=== PATIENT | male | born 1965 | race Caucasian/White ===

== ENCOUNTER → 2016-03-20 | Outpatient (REF) | payer OTHER ==
[~2016-03-20] MED LIST: /ESOM40CA PO; /WARF5TA PO; ASPI81TA85 PO; CRES40TA PO; CYCL10TA3 PO; DICL13PA TD; FISH1000 PO; INVO300T PO; LUNE3TAB PO; MELA3TAB PO; META800T82 PO; SIMV40TA2 PO; TRAM37.5 PO; VITAD1000T PO; coumadin PO
[2016-03-20 17:49] LABS: BASO # 0.1 K/mm3 (0.0-0.2); BASO % 0.9 % (0.0-1.0); EOS # 0.1 K/mm3 (0.0-0.50); EOS % 2.3 % (0.0-3.0); LARGE UNSTAINED CELL # 0.2 K/mm3 (0.0-0.4); LARGE UNSTAINED CELL % 2.4 % (0.0-4.0); LYMPH # 1.6 K/mm3 (1.5-4.5); LYMPH % 25.7 % (24.0-44.0); MEAN CORPUSCULAR HEMOGLOBIN 31.5 pg (27.0-33.0); MEAN CORPUSCULAR HGB CONC 34.8 g/dl (32.0-36.5); MEAN CORPUSCULAR VOLUME 90.5 fl (80.0-96.0); MONO # 0.4 K/mm3 (0.0-0.8); MONO % 6.6 % (0.0-5.0); NEUTROPHILS # 3.8 K/mm3 (1.8-7.7); PLATELET COUNT, AUTOMATED 177 k/mm3 (150-450); RED CELL DISTRIBUTION WIDTH 12.6 % (11.5-14.5); WHITE BLOOD COUNT 6.1 K/mm3 (4.0-10.0)
[2016-03-20 18:07] LABS: ALBUMIN 4.1 GM/DL (3.2-5.2); ALBUMIN/GLOBULIN RATIO 1.58 (1.00-1.93); ALKALINE PHOSPHATASE 108 U/L (45-117); ALT/SGPT 40 U/L (12-78); ANION GAP 8 MEQ/L (8-16); AST/SGOT 19 U/L (15-37); BILIRUBIN,TOTAL 0.9 MG/DL (0.2-1.0); BLOOD UREA NITROGEN 21 MG/DL (7-18); CALCIUM LEVEL 9.1 MG/DL (8.5-10.1); CARBON DIOXIDE LEVEL 31 MEQ/L (21-32); CHLORIDE LEVEL 103 MEQ/L (98-107); CHOLESTEROL LEVEL 198 MG/DL (<200); CREATININE FOR GFR 1.04 MG/DL (0.70-1.30); GLOMERULAR FILTRATION RATE > 60.0 (>56); GLUCOSE, FASTING 125 MG/DL (70-105); POTASSIUM SERUM 4.2 MEQ/L (3.5-5.1); SODIUM LEVEL 142 MEQ/L (136-145); TOTAL PROTEIN 6.7 GM/DL (6.4-8.2); TRIGLYCERIDES LEVEL 232 MG/DL (<150)
[2016-03-20 18:11] LABS: INR 1.93
== END ==
LOC: M SFHCPLAZ 15:41
PROVIDERS: ATTEND Family Medicine
DX: N18.2 Chronic kidney disease, stage 2 (mild) (principal); E11.9 Type 2 diabetes mellitus without complications; E78.2 Mixed hyperlipidemia; I82.409 Acute embolism and thrombosis of unspecified deep veins of unspecified lower extremity; M47.816 Spondylosis without myelopathy or radiculopathy, lumbar region

== ENCOUNTER → 2016-08-06 | Outpatient (REF) | payer OTHER ==
[~2016-08-06] MED LIST changes: +AUGM875T28 PO; +COUM6TAB PO; +LUNE3TAB36 PO; +NEXI40CA PO; +ZETI10TA30 PO
[2016-08-06 12:50] LABS: ALBUMIN 3.9 GM/DL (3.2-5.2); ALBUMIN/GLOBULIN RATIO 1.39 (1.00-1.93); ALKALINE PHOSPHATASE 90 U/L (45-117); ALT/SGPT 35 U/L (12-78); ANION GAP 8 MEQ/L (8-16); AST/SGOT 21 U/L (15-37); BILIRUBIN,TOTAL 0.8 MG/DL (0.2-1.0); BLOOD UREA NITROGEN 24 MG/DL (7-18); CALCIUM LEVEL 8.5 MG/DL (8.5-10.1); CARBON DIOXIDE LEVEL 27 MEQ/L (21-32); CHLORIDE LEVEL 105 MEQ/L (98-107); CHOLESTEROL LEVEL 165 MG/DL (<200); CREATININE FOR GFR 1.05 MG/DL (0.70-1.30); GLOMERULAR FILTRATION RATE > 60.0 (>56); GLUCOSE, FASTING 298 MG/DL (70-105); POTASSIUM SERUM 3.9 MEQ/L (3.5-5.1); SODIUM LEVEL 140 MEQ/L (136-145); TOTAL PROTEIN 6.7 GM/DL (6.4-8.2); TRIGLYCERIDES LEVEL 509 MG/DL (<150)
[2016-08-06 16:36] LABS: INR 2.45
== END ==
LOC: M SFHCPLAZ 08:17
PROVIDERS: ATTEND Family Medicine
DX: E78.2 Mixed hyperlipidemia (principal); E11.9 Type 2 diabetes mellitus without complications; E55.9 Vitamin D deficiency, unspecified

== ENCOUNTER → 2016-10-29 | Outpatient (CLI) | payer OTHER ==
[2016-10-29 19:50] LABS: INR 1.24
--- NOTE | 2016-10-29 19:53 | REP ---
Chest x-ray: Two views. History: Shortness of breath. Comparison chest x-ray November 13, 2009. Findings: Patient is status post ventral discectomy and cervical plate fusion in the lower cervical spine. Lungs are well inflated and clear. Pleural angles are sharp. Heart is not enlarged. Pulmonary vasculature is not increased. There are mild degenerative changes in the thoracic spine. Impression: No active disease. Signed by Huber Chawla MD 10/30/2016 08:10 A
[2016-10-29 20:08] LABS: ALBUMIN 4.2 GM/DL (3.2-5.2); ALBUMIN/GLOBULIN RATIO 1.45 (1.00-1.93); ALKALINE PHOSPHATASE 100 U/L (45-117); ALT/SGPT 41 U/L (12-78); ANION GAP 6 MEQ/L (8-16); AST/SGOT 20 U/L (15-37); BILIRUBIN,TOTAL 0.8 MG/DL (0.2-1.0); BLOOD UREA NITROGEN 26 MG/DL (7-18); CALCIUM LEVEL 9.3 MG/DL (8.5-10.1); CARBON DIOXIDE LEVEL 30 MEQ/L (21-32); CHLORIDE LEVEL 105 MEQ/L (98-107); CREATININE FOR GFR 1.01 MG/DL (0.70-1.30); GLOMERULAR FILTRATION RATE > 60.0 (>56); GLUCOSE, FASTING 85 MG/DL (70-105); POTASSIUM SERUM 4.4 MEQ/L (3.5-5.1); SODIUM LEVEL 141 MEQ/L (136-145); TOTAL PROTEIN 7.1 GM/DL (6.4-8.2)
[2016-10-29 20:57] LABS: BASO % 0.7 % (0.0-1.0); EOS # 0.2 K/mm3 (0.0-0.50); EOS % 2.9 % (0.0-3.0); LARGE UNSTAINED CELL # 0.1 K/mm3 (0.0-0.4); LARGE UNSTAINED CELL % 1.7 % (0.0-4.0); LYMPH # 1.6 K/mm3 (1.5-4.5); LYMPH % 20.3 % (24.0-44.0); MEAN CORPUSCULAR HEMOGLOBIN 32.7 pg (27.0-33.0); MEAN CORPUSCULAR VOLUME 90.9 fl (80.0-96.0); MONO # 0.4 K/mm3 (0.0-0.8); MONO % 5.7 % (0.0-5.0); NEUTROPHILS # 5.3 K/mm3 (1.8-7.7); NEUTROPHILS % 68.9 % (36.0-66.0); PLATELET COUNT, AUTOMATED 223 k/mm3 (150-450); RED CELL DISTRIBUTION WIDTH 12.5 % (11.5-14.5); WHITE BLOOD COUNT 7.6 K/mm3 (4.0-10.0)
== END ==
LOC: M WUC 17:17
PROVIDERS: ATTEND Physician Assistant
DX: R06.02 Shortness of breath (principal)

== ENCOUNTER → 2016-12-21 | Outpatient (REF) | payer OTHER ==
[2016-12-21 12:50] LABS: VITAMIN B12 LEVEL 818 PG/ML (247-911)
[2016-12-21 13:05] LABS: BASO # 0.1 10^3/uL (0.0-0.2); BASO % 0.8 % (0.0-1.0); EOS # 0.2 10^3/uL (0.0-0.50); EOS % 3.7 % (0.0-3.0); IMMATURE GRANULOCYTE % 0.3 % (0-0); LYMPH # 1.2 10^3/uL (1.5-4.5); LYMPH % 18.9 % (24.0-44.0); MEAN CORPUSCULAR HEMOGLOBIN 31.4 pg (27.0-33.0); MEAN CORPUSCULAR HGB CONC 34.6 g/dl (32.0-36.5); MEAN CORPUSCULAR VOLUME 90.8 fl (80.0-96.0); MONO # 0.6 10^3/uL (0.0-0.8); MONO % 8.7 % (0.0-5.0); NEUTROPHILS # 4.4 10^3/uL (1.8-7.7); NEUTROPHILS % 67.6 % (36.0-66.0); PLATELET COUNT, AUTOMATED 172 10^3/uL (150-450); RED CELL DISTRIBUTION WIDTH 12.9 % (11.5-14.5); WHITE BLOOD COUNT 6.5 10^3/uL (4.0-10.0)
[2016-12-21 13:10] LABS: INR 3.14
[2016-12-21 13:22] LABS: ALBUMIN 4.3 GM/DL (3.2-5.2); ALBUMIN/GLOBULIN RATIO 1.87 (1.00-1.93); ALKALINE PHOSPHATASE 94 U/L (45-117); ALT/SGPT 62 U/L (12-78); ANION GAP 8 MEQ/L (8-16); AST/SGOT 25 U/L (7-37); BILIRUBIN,TOTAL 0.8 MG/DL (0.2-1.0); BLOOD UREA NITROGEN 21 MG/DL (7-18); CALCIUM LEVEL 9.4 MG/DL (8.5-10.1); CARBON DIOXIDE LEVEL 30 MEQ/L (21-32); CHLORIDE LEVEL 104 MEQ/L (98-107); CHOLESTEROL LEVEL 182 MG/DL (<200); CREATININE FOR GFR 0.95 MG/DL (0.70-1.30); GLOMERULAR FILTRATION RATE > 60.0 (>56); GLUCOSE, FASTING 140 MG/DL (70-105); POTASSIUM SERUM 4.5 MEQ/L (3.5-5.1); SODIUM LEVEL 142 MEQ/L (136-145); TOTAL PROTEIN 6.6 GM/DL (6.4-8.2); TRIGLYCERIDES LEVEL 182 MG/DL (<150)
== END ==
LOC: M SFHCPLAZ 08:35
PROVIDERS: ATTEND Family Medicine
DX: N18.2 Chronic kidney disease, stage 2 (mild) (principal); E78.2 Mixed hyperlipidemia; E11.9 Type 2 diabetes mellitus without complications; I82.409 Acute embolism and thrombosis of unspecified deep veins of unspecified lower extremity

== ENCOUNTER → 2017-04-13 | Outpatient (REF) | payer OTHER ==
[2017-04-13 11:10] LABS: BASO # 0.1 10^3/uL (0.0-0.2); BASO % 1.2 % (0.0-1.0); EOS # 0.2 10^3/uL (0.0-0.50); HEMATOCRIT 46.5 % (42.0-52.0); HEMOGLOBIN 16.2 g/dl (14.0-18.0); IMMATURE GRANULOCYTE % 0.7 % (0-3.0); LYMPH # 1.4 10^3/uL (1.5-4.5); LYMPH % 23.8 % (24.0-44.0); MEAN CORPUSCULAR HGB CONC 34.8 g/dl (32.0-36.5); MEAN CORPUSCULAR VOLUME 89.1 fl (80.0-96.0); MONO # 0.6 10^3/uL (0.0-0.8); MONO % 10.6 % (0.0-5.0); NEUTROPHILS # 3.6 10^3/uL (1.8-7.7); NEUTROPHILS % 59.7 % (36.0-66.0); PLATELET COUNT, AUTOMATED 173 10^3/uL (150-450); RED BLOOD COUNT 5.22 10^6/uL (4.30-6.10); RED CELL DISTRIBUTION WIDTH 13.1 % (11.5-14.5); WHITE BLOOD COUNT 6.1 10^3/uL (4.0-10.0)
[2017-04-13 11:15] LABS: ALKALINE PHOSPHATASE 92 U/L (45-117); ALT/SGPT 49 U/L (12-78); ANION GAP 8 MEQ/L (8-16); AST/SGOT 24 U/L (7-37); BILIRUBIN,TOTAL 1.2 MG/DL (0.2-1.0); BLOOD UREA NITROGEN 22 MG/DL (7-18); CALCIUM LEVEL 8.4 MG/DL (8.5-10.1); CARBON DIOXIDE LEVEL 30 MEQ/L (21-32); CHLORIDE LEVEL 105 MEQ/L (98-107); CREATININE FOR GFR 0.96 MG/DL (0.70-1.30); FERRITIN 202 NG/ML (26-388); GLOMERULAR FILTRATION RATE > 60.0 (>56); GLUCOSE, FASTING 186 MG/DL (70-100); IRON (FE) 101 UG/DL (65-175); POTASSIUM SERUM 4.4 MEQ/L (3.5-5.1); SODIUM LEVEL 143 MEQ/L (136-145); TOTAL IRON BINDING CAPACITY 297 UG/DL (250-450); TOTAL PROTEIN 6.5 GM/DL (6.4-8.2)
[2017-04-13 11:30] LABS: ESTIMATED AVERAGE GLUCOSE 183 MG/DL (60-110)
[2017-04-13 11:31] LABS: INR 2.93; PROTHROMBIN TIME 31.9 SECONDS (12.4-14.5)
[2017-04-13 11:32] LABS: PARTIAL THROMBOPLASTIN TIME 50.6 SECONDS (26.8-37.9)
[2017-04-13 11:51] LABS: PTH INTACT 78.1 PG/ML (18.5-88.0); TOTAL 25(OH) VITAMIN D 24.2 NG/ML (30.0-100.0)
== END ==
LOC: M SFHCPLAZ 08:19
DX: Z86.711 Personal history of pulmonary embolism (principal); E55.9 Vitamin D deficiency, unspecified; E11.9 Type 2 diabetes mellitus without complications
CPT/HCPCS: 83550

== ENCOUNTER 2017-06-24 08:49 | Day surgery (SDC) | payer OTHER ==
[2017-06-24] MEDS: NS 1,000 ML IV (09:15)
[2017-06-24] MEDS ORDERED: PROPOFOL 200 MG/20 ML VIAL As Ordered ×2 (09:43)
[2017-06-24] MEDS ORDERED: LIDOCAINE 2% INJ 100 MG/5 ML SDV (FOR ANES.) As Ordered (09:43)
== END 2017-06-24 11:00 | disposition home or self-care (01) ==
LOC: M OPP 08:49
DX: Z12.11 Encounter for screening for malignant neoplasm of colon (principal); K57.30 Diverticulosis of large intestine without perforation or abscess without bleeding; K64.8 Other hemorrhoids; E78.5 Hyperlipidemia, unspecified; Z86.718 Personal history of other venous thrombosis and embolism; Z86.711 Personal history of pulmonary embolism; D68.51 Activated protein C resistance; E11.9 Type 2 diabetes mellitus without complications; K21.9 Gastro-esophageal reflux disease without esophagitis; E80.4 Gilbert syndrome; M19.90 Unspecified osteoarthritis, unspecified site; R06.83 Snoring; G47.30 Sleep apnea, unspecified; G47.00 Insomnia, unspecified; Z98.1 Arthrodesis status; Z88.5 Allergy status to narcotic agent; Z79.01 Long term (current) use of anticoagulants; Z79.899 Other long term (current) drug therapy; Z80.42 Family history of malignant neoplasm of prostate; Z80.6 Family history of leukemia; Z80.0 Family history of malignant neoplasm of digestive organs
CPT/HCPCS: 45378

== ENCOUNTER → 2017-11-15 | Outpatient (REF) | payer OTHER ==
[2017-11-15 11:22] LABS: APPEARANCE, URINE CLEAR (CLEAR); BACTERIA, URINE AUTO NEGATIVE (NEGATIVE); BILIRUBIN, URINE AUTO NEGATIVE (NEGATIVE); BLOOD, URINE BLOOD NEGATIVE (NEGATIVE); COLOR, URINE YELLOW (YELLOW); GLUCOSE, URINE (UA) AUTO 3+ mg/dL (NEGATIVE); KETONE, URINE AUTO NEGATIVE (NEGATIVE); LEUKOCYTE ESTERASE, URINE AUTO NEGATIVE (NEGATIVE); NITRITE, URINE AUTO NEGATIVE (NEGATIVE); PROTEIN, URINE AUTO NEGATIVE (NEGATIVE); RBC, URINE AUTO 0 /HPF (0-3); SPECIFIC GRAVITY URINE AUTO 1.028 (1.002-1.035); SQUAMOUS EPITHELIAL CELL UR AU 0 /HPF (0-6); UROBILINOGEN, URINE AUTO 0.2 mg/dL (0.0-2.0); WBC, URINE AUTO 0 /HPF (0-3)
[2017-11-15 11:28] LABS: INR 3.08; PROTHROMBIN TIME 32.5 SECONDS (12.1-14.4)
[2017-11-15 11:29] LABS: PARTIAL THROMBOPLASTIN TIME 49.9 SECONDS (25.4-37.6)
[2017-11-15 11:53] LABS: CREATININE, URINE 59.2 MG/DL; MALB URINE SIEMENS 45.3 MG/L
[2017-11-15 12:10] LABS: C REACTIVE PROTEIN QUANTITATIV 0.98 MG/DL (0.00-0.30); CHOLESTEROL LEVEL 167 MG/DL (<200); CHOLESTEROL RISK RATIO 4.282 (<5); CPK CREATINE PHOSPHOKINASE 96 U/L (39-308); HDL CHOLESTEROL 39 MG/DL (>40); LDL CHOLESTEROL 87 MG/DL (<100); MAU/CREAT RATIO 76.5 MCG/MG (0.0-30.0); NON-HDL-C 128 MG/DL; TRIGLYCERIDES LEVEL 203 MG/DL (<150)
[2017-11-15 12:15] LABS: TOTAL 25(OH) VITAMIN D 63.7 NG/ML (30.0-100.0)
[2017-11-15 12:29] LABS: ESTIMATED AVERAGE GLUCOSE 189 MG/DL (60-110); HEMOGLOBIN A1c 8.2 %
== END ==
LOC: M SFHCPLAZ 09:45
DX: E11.8 Type 2 diabetes mellitus with unspecified complications (principal); I82.409 Acute embolism and thrombosis of unspecified deep veins of unspecified lower extremity; E55.9 Vitamin D deficiency, unspecified

== ENCOUNTER → 2018-03-17 | Outpatient (REF) | payer OTHER ==
[2018-03-17 17:20] LABS: INR 2.43; PROTHROMBIN TIME 26.9 SECONDS (12.1-14.4)
== END ==
LOC: M SFHCPLAZ 15:13
PROVIDERS: ATTEND Family Medicine
DX: Z86.711 Personal history of pulmonary embolism (principal)

== ENCOUNTER → 2018-04-01 | Outpatient (REF) | payer OTHER ==
[2018-04-01 13:42] LABS: BASO # 0.1 10^3/uL (0.0-0.2); BASO % 0.8 % (0.0-1.0); EOS # 0.2 10^3/uL (0.0-0.50); EOS % 4.1 % (0.0-3.0); HEMATOCRIT 51.3 % (42.0-52.0); HEMOGLOBIN 17.5 g/dl (13.5-17.5); LYMPH % 16.2 % (24.0-44.0); MEAN CORPUSCULAR HGB CONC 34.1 g/dl (32.0-36.5); MEAN CORPUSCULAR VOLUME 90.8 fl (80.0-96.0); MONO # 0.5 10^3/uL (0.0-0.8); MONO % 8.4 % (0.0-5.0); NEUTROPHILS # 4.2 10^3/uL (1.8-7.7); NEUTROPHILS % 70.2 % (36.0-66.0); PLATELET COUNT, AUTOMATED 174 10^3/uL (150-450); RED BLOOD COUNT 5.65 10^6/uL (4.30-6.10); WHITE BLOOD COUNT 5.9 10^3/uL (4.0-10.0)
[2018-04-01 13:55] LABS: ALBUMIN 3.9 GM/DL (3.2-5.2); ALT/SGPT 32 U/L (12-78); BILIRUBIN,TOTAL 0.9 MG/DL (0.2-1.0); BLOOD UREA NITROGEN 16 MG/DL (7-18); CALCIUM LEVEL 8.1 MG/DL (8.5-10.1); CARBON DIOXIDE LEVEL 28 MEQ/L (21-32); CHLORIDE LEVEL 104 MEQ/L (98-107); CREATININE FOR GFR 0.95 MG/DL (0.70-1.30); FREE T4 0.88 NG/DL (0.76-1.46); GLOMERULAR FILTRATION RATE > 60.0 (>56); GLUCOSE, FASTING 148 MG/DL (70-100); POTASSIUM SERUM 4.6 MEQ/L (3.5-5.1); SODIUM LEVEL 138 MEQ/L (136-145); THYROID STIMULATING HORMONE 0.719 uIU/ML (0.358-3.740); TOTAL PROTEIN 6.5 GM/DL (6.4-8.2)
[2018-04-01 13:58] LABS: INR 2.66; PROTHROMBIN TIME 28.9 SECONDS (12.1-14.4)
[2018-04-01 13:59] LABS: PARTIAL THROMBOPLASTIN TIME 47.6 SECONDS (25.4-37.6)
[2018-04-01 14:23] LABS: HEMOGLOBIN A1c 8.3 %
[2018-04-01 16:07] LABS: VITAMIN B12 LEVEL 660 PG/ML (247-911)
== END ==
LOC: M LABDRAW1 12:20
PROVIDERS: ATTEND Family Medicine
DX: N18.2 Chronic kidney disease, stage 2 (mild) (principal); E78.2 Mixed hyperlipidemia; E11.8 Type 2 diabetes mellitus with unspecified complications; I82.409 Acute embolism and thrombosis of unspecified deep veins of unspecified lower extremity; Z79.01 Long term (current) use of anticoagulants
CPT/HCPCS: 36415; 80053; 82607; 83036; 84439; 84443; 85025; 85046; 85610; 85730; G0103

== ENCOUNTER 2018-05-12 05:17 | Emergency (ER) | payer OTHER ==
[~2018-05-12] VITALS: Ht 170.2 cm; Wt 102.3 kg
[~2018-05-12 05:17] MED LIST changes: -/ESOM40CA PO; -/WARF5TA PO; +COUM1TAB17 PO; +NEXI1CAP3 PO
[2018-05-12] MEDS ORDERED: CRES40TA PO (05:34)
[2018-05-12] MEDS ORDERED: TIZA2CAP6 PO (05:34)
[2018-05-12] MEDS ORDERED: INVO300T PO (05:34)
[2018-05-12] MEDS ORDERED: DOXY100C PO (05:34)
[2018-05-12] MEDS ORDERED: DULAGLUTIDE (05:34)
[2018-05-12] MEDS ORDERED: ZETI10TA30 PO (05:34)
[2018-05-12] MEDS ORDERED: VITA50005 PO (05:34)
[2018-05-12] MEDS ORDERED: METF750T PO (05:34)
[2018-05-12] MEDS ORDERED: ESZO1TAB6 PO (05:34)
[2018-05-12] MEDS ORDERED: NEXI40CA PO (05:34)
[2018-05-12] MEDS ORDERED: SILD100T PO (05:34)
[2018-05-12] MEDS ORDERED: COUM6TAB PO (05:34)
[2018-05-12] MEDS ORDERED: PROAAER10 INH (05:34)
[2018-05-12] MEDS ORDERED: ISOVUE-370 76% 100ML VIAL (Q9967) As Ordered ONE (06:02)
[2018-05-12 06:21] LABS: BASO % 0.6 % (0.0-1.0); EOS # 0.3 10^3/uL (0.0-0.50); EOS % 5.5 % (0.0-3.0); HEMATOCRIT 47.7 % (42.0-52.0); HEMOGLOBIN 16.3 g/dl (13.5-17.5); LYMPH # 0.6 10^3/uL (1.5-4.5); LYMPH % 11.8 % (24.0-44.0); MEAN CORPUSCULAR HEMOGLOBIN 30.9 pg (27.0-33.0); MEAN CORPUSCULAR HGB CONC 34.2 g/dl (32.0-36.5); MEAN CORPUSCULAR VOLUME 90.5 fl (80.0-96.0); MONO # 0.6 10^3/uL (0.0-0.8); MONO % 11.2 % (0.0-5.0); NEUTROPHILS # 3.6 10^3/uL (1.8-7.7); NEUTROPHILS % 70.5 % (36.0-66.0); PLATELET COUNT, AUTOMATED 125 10^3/uL (150-450); RED BLOOD COUNT 5.27 10^6/uL (4.30-6.10); WHITE BLOOD COUNT 5.1 10^3/uL (4.0-10.0)
[2018-05-12 06:39] LABS: INR 2.6; PROTHROMBIN TIME 28.4 SECONDS (12.1-14.4)
[2018-05-12 06:40] LABS: PARTIAL THROMBOPLASTIN TIME 50.7 SECONDS (25.4-37.6)
[2018-05-12 06:46] LABS: BLOOD UREA NITROGEN 21 MG/DL (7-18); CARBON DIOXIDE LEVEL 25 MEQ/L (21-32); CHLORIDE LEVEL 106 MEQ/L (98-107); CREATININE FOR GFR 1.05 MG/DL (0.70-1.30); GLOMERULAR FILTRATION RATE > 60.0 (>56); GLUCOSE, FASTING 227 MG/DL (70-100); POTASSIUM SERUM 4.1 MEQ/L (3.5-5.1); SODIUM LEVEL 139 MEQ/L (136-145)
--- NOTE | 2018-05-12 08:57 | REP ---
CT pulmonary angiogram: With IV contrast. History: Chest pain. Shortness of breath. History of pulmonary embolus. Comparison studies: Comparison study August 12, 2012. Contrast dose: 75 ML of Isovue [address] technique: Helical scanning is acquired and overlapping 1.5 mm and contiguous 3 mm axial images are reformatted. In addition, maximum intensity projection and multiplanar re-formation images are generated in sagittal and coronal imaging projections. CT pulmonary angiographic findings: There is good opacification in the thoracic aorta and pulmonary arterial tree. There is no CT evidence of pulmonary embolism. No pleural or pericardial effusion is seen. There is a patchy area of peribronchovascular consolidation in the right upper lobe and right lower lobe consistent with pneumonia. This is a change from the 2013 study. No pulmonary mass lesion is appreciated. No adrenal lesion is observed. Visualized upper abdominal structures are otherwise unremarkable. There is no evidence of aortic aneurysm or dissection. Bone window settings show no bony destructive lesion. Impression: No CT evidence of pulmonary embolus. Right upper lobe and right lower lobe infiltrates consistent with pneumonia. Otherwise no acute disease. Electronically Signed by Huber Chawla MD 05/12/2018 08:48 A
[2018-05-12] MEDS ORDERED: AZITHROMYCIN INJ 500 MG, VIAL MATE ADAPTER 1 EACH in D5W 250 ML IV ONE (09:15)
[2018-05-12] MEDS ORDERED: cefTRIAXone SOD 2 GM in D5W MINI-BAG PLUS 50 ML IV ONE (09:15)
--- NOTE | 2018-05-12 09:24 | ECGEPIP ---
Stationary ECG Study 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
[2018-05-12 11:15] VITALS: BP 127/83
== END 2018-05-12 11:25 | disposition home or self-care (01) ==
LOC: M ED 05:17
DX: J12.3 Human metapneumovirus pneumonia (principal); E11.9 Type 2 diabetes mellitus without complications; E78.5 Hyperlipidemia, unspecified; D68.59 Other primary thrombophilia; L42 Pityriasis rosea; Z79.899 Other long term (current) drug therapy; Z79.84 Long term (current) use of oral hypoglycemic drugs; Z79.01 Long term (current) use of anticoagulants; Z88.5 Allergy status to narcotic agent; Z88.8 Allergy status to other drugs, medicaments and biological substances
CPT/HCPCS: 36415; 71275; 80048; 83605; 85025; 85610; 85730; 87040; 87486; 87581; 87633; 87798; 93005; 93041; 94760; 96365; 96367; 99285; J0456; J0696; Q9967

== ENCOUNTER → 2018-07-15 | Outpatient (REF) | payer OTHER ==
[~2018-07-15] MED LIST changes: +DOXY100C PO; +DULAGLUTIDE; +ESZO1TAB6 PO; +METF750T PO; +PROAAER10 INH; +SILD100T PO; +TIZA2CAP6 PO; +VITA50005 PO
[2018-07-15 11:30] LABS: APPEARANCE, URINE CLEAR (CLEAR); BACTERIA, URINE AUTO NEGATIVE (NEGATIVE); BILIRUBIN, URINE AUTO NEGATIVE (NEGATIVE); BLOOD, URINE BLOOD NEGATIVE (NEGATIVE); COLOR, URINE YELLOW (YELLOW); GLUCOSE, URINE (UA) AUTO 3+ mg/dL (NEGATIVE); KETONE, URINE AUTO NEGATIVE (NEGATIVE); LEUKOCYTE ESTERASE, URINE AUTO NEGATIVE (NEGATIVE); MUCUS, URINE SMALL (NEGATIVE); NITRITE, URINE AUTO NEGATIVE (NEGATIVE); PROTEIN, URINE AUTO NEGATIVE (NEGATIVE); RBC, URINE AUTO 1 /HPF (0-3); SPECIFIC GRAVITY URINE AUTO 1.031 (1.002-1.035); SQUAMOUS EPITHELIAL CELL UR AU 0 /HPF (0-6); UROBILINOGEN, URINE AUTO 0.2 mg/dL (0.0-2.0); WBC, URINE AUTO 0 /HPF (0-3)
[2018-07-15 11:31] LABS: BASO % 0.7 % (0.0-1.0); EOS # 0.2 10^3/uL (0.0-0.50); EOS % 2.8 % (0.0-3.0); HEMATOCRIT 49.7 % (42.0-52.0); HEMOGLOBIN 17.3 g/dl (13.5-17.5); LYMPH # 1.1 10^3/uL (1.5-4.5); LYMPH % 17.5 % (24.0-44.0); MEAN CORPUSCULAR HEMOGLOBIN 31.3 pg (27.0-33.0); MEAN CORPUSCULAR HGB CONC 34.8 g/dl (32.0-36.5); MEAN CORPUSCULAR VOLUME 89.9 fl (80.0-96.0); MONO # 0.5 10^3/uL (0.0-0.8); MONO % 8.5 % (0.0-5.0); NEUTROPHILS # 4.2 10^3/uL (1.8-7.7); NEUTROPHILS % 70.2 % (36.0-66.0); PLATELET COUNT, AUTOMATED 173 10^3/uL (150-450); RED BLOOD COUNT 5.53 10^6/uL (4.30-6.10)
[2018-07-15 11:45] LABS: INR 2.55
[2018-07-15 11:46] LABS: PARTIAL THROMBOPLASTIN TIME 41.2 SECONDS (25.4-37.6)
[2018-07-15 11:56] LABS: HEMOGLOBIN A1c 7.3 %
[2018-07-15 12:06] LABS: ALBUMIN 4.1 GM/DL (3.2-5.2); ALT/SGPT 35 U/L (12-78); BILIRUBIN,TOTAL 0.9 MG/DL (0.2-1.0); BLOOD UREA NITROGEN 26 MG/DL (7-18); CALCIUM LEVEL 8.6 MG/DL (8.5-10.1); CARBON DIOXIDE LEVEL 27 MEQ/L (21-32); CHLORIDE LEVEL 108 MEQ/L (98-107); CHOLESTEROL LEVEL 136 MG/DL (<200); CHOLESTEROL RISK RATIO 3.162 (<5); CREATININE FOR GFR 1.05 MG/DL (0.70-1.30); GLOMERULAR FILTRATION RATE > 60.0 (>56); GLUCOSE, FASTING 134 MG/DL (70-100); HDL CHOLESTEROL 43 MG/DL (>40); LDL CHOLESTEROL 68 MG/DL (<100); NON-HDL-C 93 MG/DL; POTASSIUM SERUM 4.4 MEQ/L (3.5-5.1); SODIUM LEVEL 142 MEQ/L (136-145); TOTAL PROTEIN 6.6 GM/DL (6.4-8.2); TRIGLYCERIDES LEVEL 126 MG/DL (<150)
[2018-07-15 12:36] LABS: MALB URINE SIEMENS 54.8 MG/L; MAU/CREAT RATIO 65.2 MCG/MG (0.0-30.0)
== END ==
LOC: M SFHCPLAZ 09:38
PROVIDERS: ATTEND Family Medicine
DX: N18.2 Chronic kidney disease, stage 2 (mild) (principal); E11.8 Type 2 diabetes mellitus with unspecified complications; E78.2 Mixed hyperlipidemia; Z12.5 Encounter for screening for malignant neoplasm of prostate; I82.409 Acute embolism and thrombosis of unspecified deep veins of unspecified lower extremity
CPT/HCPCS: 36415; 80053; 80061; 81001; 82043; 82668; 83036; 85025; 85610; 85730; G0103

== ENCOUNTER → 2018-12-19 | Outpatient (REF) | payer OTHER ==
[~2018-12-19] MED LIST changes: -METF750T PO; +METF750T36 PO; +ZETI10TA16 PO; -ZETI10TA30 PO
[2018-12-19 12:27] LABS: BASO % 0.8 % (0.0-1.0); EOS # 0.2 10^3/uL (0.0-0.5); EOS % 4.2 % (0.0-3.0); HEMATOCRIT 47.8 % (42.0-52.0); HEMOGLOBIN 16.2 g/dl (13.5-17.5); LYMPH % 19.3 % (24.0-44.0); MEAN CORPUSCULAR HEMOGLOBIN 31.9 pg (27.0-33.0); MEAN CORPUSCULAR HGB CONC 33.9 g/dl (32.0-36.5); MEAN CORPUSCULAR VOLUME 94.1 fl (80.0-96.0); MONO # 0.6 10^3/uL (0.0-0.8); MONO % 10.9 % (0.0-5.0); NEUTROPHILS # 3.4 10^3/uL (1.5-8.5); NEUTROPHILS % 64.4 % (36.0-66.0); PLATELET COUNT, AUTOMATED 162 10^3/uL (150-450); RED BLOOD COUNT 5.08 10^6/uL (4.30-6.10); WHITE BLOOD COUNT 5.2 10^3/uL (4.0-10.0)
[2018-12-19 12:34] LABS: ALBUMIN 3.6 GM/DL (3.2-5.2); ALT/SGPT 46 U/L (12-78); BILIRUBIN,TOTAL 0.6 MG/DL (0.2-1.0); BLOOD UREA NITROGEN 30 MG/DL (7-18); CALCIUM LEVEL 8.3 MG/DL (8.5-10.1); CARBON DIOXIDE LEVEL 29 MEQ/L (21-32); CHLORIDE LEVEL 108 MEQ/L (98-107); CREATININE FOR GFR 1.16 MG/DL (0.70-1.30); GLOMERULAR FILTRATION RATE > 60.0 (>56); GLUCOSE, FASTING 216 MG/DL (70-100); POTASSIUM SERUM 4.8 MEQ/L (3.5-5.1); SODIUM LEVEL 142 MEQ/L (136-145); TOTAL PROTEIN 6.1 GM/DL (6.4-8.2)
[2018-12-19 12:40] LABS: INR 2.1; PROTHROMBIN TIME 23.4 SECONDS (11.8-14.0); PTH INTACT 59.3 PG/ML (18.5-88.0); TOTAL 25(OH) VITAMIN D 70.3 NG/ML (30.0-100.0)
[2018-12-19 12:41] LABS: PARTIAL THROMBOPLASTIN TIME 36.2 SECONDS (25.0-38.4)
[2018-12-19 13:14] LABS: HEMOGLOBIN A1c 7.5 %
== END ==
LOC: M SFHCPLAZ 08:58
PROVIDERS: ATTEND Family Medicine
DX: N18.2 Chronic kidney disease, stage 2 (mild) (principal); Z79.01 Long term (current) use of anticoagulants; E11.8 Type 2 diabetes mellitus with unspecified complications; E55.9 Vitamin D deficiency, unspecified

== ENCOUNTER → 2019-05-02 | Outpatient (REF) | payer OTHER ==
[~2019-05-02] MED LIST changes: +SIMV40TA20 PO
[2019-05-02 14:19] LABS: APPEARANCE, URINE CLEAR (CLEAR); BACTERIA, URINE AUTO NEGATIVE (NEGATIVE); BILIRUBIN, URINE AUTO NEGATIVE (NEGATIVE); BLOOD, URINE BLOOD NEGATIVE (NEGATIVE); COLOR, URINE STRAW (YELLOW); GLUCOSE, URINE (UA) AUTO 3+ mg/dL (NEGATIVE); KETONE, URINE AUTO NEGATIVE (NEGATIVE); LEUKOCYTE ESTERASE, URINE AUTO NEGATIVE (NEGATIVE); NITRITE, URINE AUTO NEGATIVE (NEGATIVE); PROTEIN, URINE AUTO NEGATIVE (NEGATIVE); RBC, URINE AUTO 0 /HPF (0-3); SPECIFIC GRAVITY URINE AUTO 1.018 (1.002-1.035); SQUAMOUS EPITHELIAL CELL UR AU 0 /HPF (0-6); UROBILINOGEN, URINE AUTO 0.2 mg/dL (0.0-2.0); WBC, URINE AUTO 0 /HPF (0-3)
[2019-05-02 14:23] LABS: INR 2.08; PROTHROMBIN TIME 23.2 SECONDS (11.8-14.0)
[2019-05-02 14:24] LABS: PARTIAL THROMBOPLASTIN TIME 44.3 SECONDS (25.0-38.4)
[2019-05-02 14:46] LABS: CHOLESTEROL RISK RATIO 4.85 (<5); FREE T4 0.96 NG/DL (0.76-1.46); PERCENT SATURATION 29.7 % (19.7-50.0); THYROID STIMULATING HORMONE 0.66 uIU/ML (0.358-3.740)
[2019-05-02 14:53] LABS: CREATININE, URINE 25.8 MG/DL; MALB URINE SIEMENS 20.6 MG/L; MAU/CREAT RATIO 79.8 MCG/MG (0.0-30.0)
[2019-05-02 16:08] LABS: HEMOGLOBIN A1c 7.6 %
== END ==
LOC: M SFHCPLAZ 11:29
PROVIDERS: ATTEND Family Medicine
DX: Z12.5 Encounter for screening for malignant neoplasm of prostate (principal); D75.1 Secondary polycythemia; E11.8 Type 2 diabetes mellitus with unspecified complications; I82.409 Acute embolism and thrombosis of unspecified deep veins of unspecified lower extremity
CPT/HCPCS: 80061; 81001; 82043; 82728; 83036; 83525; 83550; 84439; 84443; 85610; 85730; G0103

== ENCOUNTER → 2019-05-08 | Outpatient (REF) | payer OTHER ==
[2019-05-08 14:39] LABS: INR 2.3; PARTIAL THROMBOPLASTIN TIME 38.7 SECONDS (25.0-38.4); PROTHROMBIN TIME 25.1 SECONDS (11.8-14.0)
== END ==
LOC: M SFHCPLAZ 12:55
PROVIDERS: ATTEND Family Medicine
DX: Z86.711 Personal history of pulmonary embolism (principal); Z79.01 Long term (current) use of anticoagulants

== ENCOUNTER → 2019-06-13 | Outpatient (CLI) | payer OTHER | LOC: M LABSMTC 12:46 | PROVIDERS: ATTEND Family Medicine | DX: Z11.59 Encounter for screening for other viral diseases (principal); Z20.828 Contact with and (suspected) exposure to other viral communicable diseases ==

== ENCOUNTER → 2019-11-17 | Outpatient (REF) | payer OTHER ==
[~2019-11-17] MED LIST changes: -COUM6TAB PO; +COUM6TAB10 PO
== END ==
LOC: M WUC 15:50
PROVIDERS: ATTEND Physician Assistant
DX: R30.0 Dysuria (principal)

== ENCOUNTER → 2019-11-24 | Outpatient (REF) | payer OTHER ==
[2019-11-30 10:08] LABS: HSV-1 DNA Negative (Negative); HSV-2 DNA Positive (Negative)
== END ==
LOC: M SFHCPLAZ 09:40
PROVIDERS: ATTEND Family Medicine
DX: N41.0 Acute prostatitis (principal); A60.02 Herpesviral infection of other male genital organs

== ENCOUNTER → 2019-11-29 | Outpatient (REF) | payer OTHER ==
[2019-11-29 17:41] LABS: INR 1.96; PROTHROMBIN TIME 22.8 SECONDS (12.5-14.3)
[2019-11-29 17:42] LABS: PARTIAL THROMBOPLASTIN TIME 40.8 SECONDS (24.2-38.5)
== END ==
LOC: M PLALAB 16:50
PROVIDERS: ATTEND Family Medicine
DX: E78.2 Mixed hyperlipidemia (principal); E11.8 Type 2 diabetes mellitus with unspecified complications; Z12.5 Encounter for screening for malignant neoplasm of prostate; D68.51 Activated protein C resistance; Z71.1 Person with feared health complaint in whom no diagnosis is made

== ENCOUNTER → 2020-01-29 | Outpatient (REF) | payer OTHER ==
[2020-01-29 17:33] LABS: INR 2.33; PROTHROMBIN TIME 26.1 SECONDS (12.5-14.3)
[2020-01-29 17:34] LABS: ALBUMIN 4.1 GM/DL (3.2-5.2); ALT/SGPT 48 U/L (12-78); BLOOD UREA NITROGEN 22 MG/DL (7-18); CALCIUM LEVEL 9.1 MG/DL (8.5-10.1); CARBON DIOXIDE LEVEL 29 MEQ/L (21-32); CHLORIDE LEVEL 105 MEQ/L (98-107); CHOLESTEROL LEVEL 168 MG/DL (<200); CHOLESTEROL RISK RATIO 3.652 (<5); CREATININE FOR GFR 0.97 MG/DL (0.70-1.30); GLOMERULAR FILTRATION RATE > 60.0 (>56); GLUCOSE, FASTING 118 MG/DL (70-100); HDL CHOLESTEROL 46 MG/DL (>40); LDL CHOLESTEROL 78 MG/DL (<100); NON-HDL-C 122 MG/DL; SODIUM LEVEL 142 MEQ/L (136-145); TOTAL PROTEIN 7.1 GM/DL (6.4-8.2); TRIGLYCERIDES LEVEL 222 MG/DL (<150)
[2020-01-29 17:55] LABS: HEMOGLOBIN A1c 8.3 %
== END ==
LOC: M PLALAB 15:45
PROVIDERS: ATTEND Family Medicine
DX: N18.2 Chronic kidney disease, stage 2 (mild) (principal); E11.8 Type 2 diabetes mellitus with unspecified complications; D68.51 Activated protein C resistance

== ENCOUNTER → 2020-02-19 | Outpatient (CLI) | payer OTHER | LOC: M LABSMTC 13:34 | PROVIDERS: ATTEND Family Medicine | DX: Z20.822 Contact with and (suspected) exposure to COVID-19 (principal) ==

== ENCOUNTER 2020-02-23 17:55 | Emergency (ER) | payer OTHER ==
[~2020-02-23] VITALS: Ht 170.2 cm; Wt 104.2 kg
--- OUTSIDE RECORDS SUMMARY | 2020-02-23 18:05 | CCD ---
Author Author [facility] Organization [facility] [employer] [facility] Address Unknown Phone Unavailable Care Team Providers Care Forging Press Lever Tender Name Role Phone Trent Mari Unavailable PROBLEMS Type Condition ICD9-CM Code [id number] Code Onset Dates Condition S tatus SNOMED Code Notes Problem Recurrent deep venous thrombosis I82.409 Active 773498615 Problem GERD (gastroesophageal reflux disease) K21.9 A ctive 103419304 Problem ED (erectile dysfunction) N52.9 Active 524958 002 Problem History of pulmonary embolus (PE) Z86.711 Active 831436501 Problem PATRICK (obstructive sleep apnea) G47.33 Active 15 490992 Problem Encounter for therapeutic drug monitoring Z51.81 Active 826014093 Problem Vitamin D deficiency, unspecified E55.9 Active 64891179 Problem DJD (degenerative joint disease), cervical M50.30 Active 61168925 Problem DJD (degenerative joint disease), lumbar M47.816 Active 418917038 Problem Impingement syndrome, shoulder, left M75.42 Act adamaris 488356353 Problem Insomnia G47.00 Active 659270807 Problem Colon cancer screening Z12.11 Active 005102533 Problem CKD (chronic kidney disease) stage 2, GFR 60-89 ml/min N18.2 Active 497126296 Problem correction (current) use of anticoagulants Z79.01 Active 082453465 Problem Diabetes mellitus with complication E11.8 Acti ve 454278746 Problem Impingement syndrome of right shoulder M75.41 A ctive 763907739 Problem 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 A60.02 Active 58612360 Problem Elevated PSA R97.2 Active 367807043 Problem Concern about STD in male without diagnosis Z71.1 Active 394501168 Problem 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 Active 84307344 Problem Mixed hyperlipidemia E78.2 Active 561757292 Problem Prostate cancer screening Z12.5 Active 825768 001 Problem Plantar fasciitis M72.2 Active 578336309 Problem Erythrocytosis D75.1 Active 545824388 Problem Factor 5 Leiden mutation, heterozygous D68.51 A ctive 232842468 ALLERGIES Allergen (clinical drug ingredient) Drug/Non Drug Allergy do cumented on EMR Reaction Allergy Type Onset Date Status morphine N/V Non Drug Allergy Active atorvastatin Lipitor([facility] Code:[address]-64) Myalgia Drug Allergy Active ENCOUNTERS from 1965 to 2020-02-12 Encounter Location Date Provider Diagnosis [address] [place] [address] Feb, 021 Trent Mari IMMUNIZATIONS Vaccine Route Administration Date Status Pneumococcal 0.5mL (Prevnar 13) IM Intramuscular Dec 19, 2018 Administered Influenza (18 yrs & older) Flublok IM Intramuscular Nov 25, 2018 Administered Influenza (6mo & up) Fluzone IM Intramuscular Nov 17, 2013 Ad ministered Pneumococcal Adult 0.5mL (Pneumovax 23) IM Intramuscular Jan 08, 2011 Administered Influenza (Pharmacy Given) IM Intramuscular Nov 09, 2017 Admi nistered Influenza (6mo & up) Fluzone IM Intramuscular Nov 21, 2012 Ad ministered Influenza (6mo & up) Fluzone IM Intramuscular Feb 25, 2012 Ad ministered Influenza (6mo & up) Fluzone IM Intramuscular Jan 08, 2011 Ad ministered Influenza (6mo & up) Fluzone IM Intramuscular Nov 19, 2009 Ad ministered SOCIAL HISTORY Tobacco Use: Social History Observation Description Date Details (start date - stop date) Never Smoker Sex Assigned At : Social History Observation Description Sex Assigned At Unknown Education: Question Answer Notes Level of Education: College Audit Question Answer Notes Total Score: 1 Interpretation: Alcohol Education Language: Question Answer Notes Languages spoken: Wolof Caodaism: Question Answer Notes Caodaism No gnosticism beliefs that would impact health care. Sexual Hx: Question Answer Notes Had sex in the last 12 months (vaginal, oral, or anal)? Yes Have you ever had an STD? Yes with Women only Use protection? No Drug and Alcohol Question Answer Notes Total Score: 0 Interpretation: No problems reported Alcohol Screening: Question Answer Notes Did you have a drink containing alcohol in the past year? No Points 0 Interpretation Negative BMI Care Goal Follow-Up Question Answer Notes Above Normal BMI Follow-Up Giving encouragement to exercise Tobacco Use: Question Answer Notes Are you a: never smoker REASON FOR REFERRAL No Information VITAL SIGNS No information MEDICATIONS Medication SIG (Take, Route, Frequency, Duration) Notes Start Da te End Date Status Valtrex 1 GM 1 tablet Orally bid for 10 day(s) Nov, 0 Active Eszopiclone 3 MG 1 tab Orally at bedtime prn insomnia for 30 day(s) Active FreeStyle Jd [place] - 1 reader for 2 weeks topically Daily fo r 14 day(s) Jan, Active CPAP mask as directed QHS for 90 days Active Coumadin 6 MG 1 tablet Orally Once a day for 90 Active Dulaglutide 1.5 MG/0.5ML as directed Subcutaneous every 7 days f or 90 day(s) Active Ergocalciferol 53113 UNIT 1 capsule Orally every 7 days for 90 day(s) Active Ezetimibe 10 MG 1 tablet Orally Once a day for 90 day(s) Active Viagra 100 MG 1 tablet as needed Orally Once a day prn ED for 30 day( s) Active Rosuvastatin Calcium 40 MG 1 tablet Orally Once a day for 90 day(s) Active Tizanidine HCl 2 MG 1 capsule as needed Orally T hree times a day prn pain for 90 day(s) Active Levofloxacin 500 MG 1 tablet Orally Once a day for 14 days Nov, Active MetFORMIN HCl ER 750 MG 1 tab Orally AC dinner for 90 day(s) Active Vitamin D (Ergocalciferol) 1.25 MG (47646 UT) TAKE 1 C APSULE BY MOUTH EVERY 7 DAYS for 84 Active CPAP Machine as directed _ Daily for 999 days Active Sildenafil Citrate 100 MG 1 tablet as needed Orally Once a day f or 30 Days June, Active Nexium 40 mg 1 tablet Orally Once a day for 90 day(s) Active FreeStyle Jd Sensor System - 1 sensor topically Daily for 28 Active Invokana 300 1 tablet before first meal Orally Once a day for 90 day( s) Active PROCEDURES No Information RESULTS No Results REASON FOR VISIT HSV 2 MEDICAL (GENERAL) HISTORY Type Description Date Medical History postoperative extensive righ t lower extremity DVT of femoral system and proximal pulmonary artery right lower lobe PE from cervical ACDF September 2009-status post TPA thrombolysis of DVT at [facility]- negative hypercoaguablilty workup December 2009 except heterozygote for Factor 5 Leiden (([id number]), December 2010 normal protein C and S antigen and functional activity//08/12/12 recurrent RLE DVT, negative CTA-lifelong Coumadin goal INR 2-3 Medical History chronic MDD/YOEL/comorbid insomnia Medical History hyperlipidemia 2B Medical History GERD Medical History T2DM NID c microalbuminuria Medical History obesity Medical History PATRICK on CPAP Medical History left supraspinatus tendinitis Medical History cervical DJD status post ACD F [id number] CT cervical spine September 2010 Medical History 10/2012-R partial Achilles te ndon rupture-treated c equilizer boot c heel lift-Carlos Naidu Medical History Gilbert's disease Surgical History C6/C7 ACDF-Dr. Hernandez September 18, 2009 Surgical History L acromioplasty, clavicle excision-Sette r 09/2015 Surgical History colon-sigmoid losis, poor prep-Reindl 2017 Hospitalization History none Hospitalization History [facility] ED-Pneumonia 05/12/2018 Goals Section No Information Health Concerns No Information MEDICAL EQUIPMENT No Information MENTAL STATUS No Information FUNCTIONAL STATUS No Information ASSESSMENTS No Information PLAN OF TREATMENT Medication Medication Name Sig Start Date Stop Date Coumadin 6 MG 1 tablet Orally Once a day for 90 Vitamin D (Ergocalciferol) 1.25 MG (54289 UT) TAKE 1 C APSULE BY MOUTH EVERY 7 DAYS for 84 Ergocalciferol 86944 UNIT 1 capsule Orally every 7 days for 90 d ay(s) Next Appt Details Provider Name:Trent Mari, 2020-02-13 0 3:00:00 PM, [address] [place] [address], [phone], Provider Name:Janina Hernandez, 03-04 01:30:00 PM, [address] [place] [address], [phone], Provider Name:Trent Mari, 2020-04-22 0 1:45:00 PM, [address] [place] [address], [phone], Insurance Providers Payer Name Payer Address Payer Phone Insured Name Patient Relati onship to Insured Coverage Start Date Coverage End Date [facility] [address] [facility] [phone] JUDY FIELDS self
--- OUTSIDE RECORDS SUMMARY | 2020-02-23 18:05 | CCD ---
Author Author [facility] Organization [facility] [employer] [facility] Address Unknown Phone Unavailable Care Team Providers Care Financial Reporting Accountant Name Role Phone Trent Mari Unavailable PROBLEMS Type Condition ICD9-CM Code [id number] Code Onset Dates Condition S tatus SNOMED Code Notes Problem Recurrent deep venous thrombosis I82.409 Active 739756227 Problem GERD (gastroesophageal reflux disease) K21.9 A ctive 657523319 Problem ED (erectile dysfunction) N52.9 Active 531937 002 Problem History of pulmonary embolus (PE) Z86.711 Active 070733391 Problem PATRICK (obstructive sleep apnea) G47.33 Active 78 468978 Problem Encounter for therapeutic drug monitoring Z51.81 Active 318492929 Problem Vitamin D deficiency, unspecified E55.9 Active 92306459 Problem DJD (degenerative joint disease), cervical M50.30 Active 76268843 Problem DJD (degenerative joint disease), lumbar M47.816 Active 949616765 Problem Impingement syndrome, shoulder, left M75.42 Act adamaris 212947784 Problem Insomnia G47.00 Active 849198229 Problem Colon cancer screening Z12.11 Active 797918978 Problem CKD (chronic kidney disease) stage 2, GFR 60-89 ml/min N18.2 Active 589161500 Problem custodial (current) use of anticoagulants Z79.01 Active 480849421 Problem Diabetes mellitus with complication E11.8 Acti ve 126834088 Problem Impingement syndrome of right shoulder M75.41 A ctive 511853801 Problem 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 A60.02 Active 40460234 Problem Elevated PSA R97.2 Active 216489847 Problem Concern about STD in male without diagnosis Z71.1 Active 946593645 Problem 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 Code:[address]-02) Myalgia Drug Allergy Active ENCOUNTERS from 1965 to 2020-02-06 Encounter Location Date Provider Diagnosis [address] [place] [address] Jan, 020 Trent Dimaser Vitamin D deficiency, unspecified E55.9 IMMUNIZATIONS Vaccine Route Administration Date Status Pneumococcal [...] Education Language: Question Answer Notes Languages spoken: Belizean Bahai: Question Answer Notes Bahai No restoration beliefs that would impact health care. Sexual [...] insomnia for 30 day(s) Active FreeStyle Jd [place] - 1 reader for 2 weeks topically Daily fo r 14 day(s) Jan, Active CPAP mask as directed QHS for 90 days Active Coumadin 6 MG 1 tablet Orally Once a day for 90 Active Dulaglutide 1.5 MG/0.5ML as directed Subcutaneous every 7 days f or 90 day(s) Active Ergocalciferol 45483 UNIT 1 capsule Orally every 7 days [...] day(s) Active Vitamin D (Ergocalciferol) 1.25 MG (67287 UT) TAKE 1 C APSULE BY MOUTH [...] Information RESULTS No Results REASON FOR VISIT Re:RE:4-5 month appointment MEDICAL (GENERAL) HISTORY Type Description Date Medical History postoperative extensive righ t lower extremity DVT of femoral system and proximal pulmonary artery right lower lobe PE from cervical ACDF September 2009-status post TPA thrombolysis of DVT at [facility]- negative hypercoaguablilty workup December 2009 except heterozygote [...] History cervical DJD status post ACD F [id number] CT cervical spine September 2010 Medical History 10/2012-R partial Achilles te ndon rupture-treated c equilizer boot c heel lift-Carlos Naidu Medical History Gilbert's disease Surgical History C6/C7 ACDF-Dr. Hernandez September 18, 2009 Surgical History L acromioplasty, clavicle excision-Sette r 09/2015 Surgical History colon-sigmoid losis, poor prep-Reindl 2017 Hospitalization History none Hospitalization History [facility] ED-Pneumonia 05/12/2018 Goals Section No Information Health Concerns No Information MEDICAL EQUIPMENT No Information MENTAL STATUS No Information FUNCTIONAL STATUS No Information ASSESSMENTS Encounter Date Diagnosis Assessment Notes Treatment Notes Treatm ent Clinical Notes Jan, Vitamin D deficiency, unspecified (ICD-10 - E55. 9) PLAN OF TREATMENT Medication Medication Name Sig Start Date Stop Date Coumadin 6 MG 1 tablet Orally Once a day for 90 Vitamin D (Ergocalciferol) 1.25 MG (31735 UT) TAKE 1 C APSULE BY MOUTH EVERY 7 DAYS for 84 Ergocalciferol 38215 UNIT 1 capsule Orally every 7 days for 90 d ay(s) Next Appt Details Provider Name:Janina Hernandez, 03-04 01:30:00 PM, [address] [place] [address], [phone], Provider Name:Trent Mari, 2020-04-22 0 1:45:00 PM, [address] [place] [address], [phone], Insurance Providers Payer Name Payer Address Payer Phone Insured Name Patient Relati onship to Insured Coverage Start Date Coverage End Date [facility] [address] [facility] [phone] JUDY FIELDS self
--- OUTSIDE RECORDS SUMMARY | 2020-02-23 18:05 | CCD ---
Author Author [facility] Organization [facility] [employer] [facility] Address Unknown Phone Unavailable Care Team Providers Care Heel Cementer Machine Name Role Phone Trent Mari Unavailable PROBLEMS Type Condition ICD9-CM Code OTK67-LF Code Onset Dates Condition S tatus SNOMED Code Notes Problem Recurrent deep venous thrombosis I82.409 Active 211628112 Problem GERD (gastroesophageal reflux disease) K21.9 A ctive 764458141 Problem ED (erectile dysfunction) N52.9 Active 721477 002 Problem History of pulmonary embolus (PE) Z86.711 Active 531546187 Problem PATRICK (obstructive sleep apnea) G47.33 Active 78 369259 Problem Encounter for therapeutic drug monitoring Z51.81 Active 206956557 Problem Vitamin D deficiency, unspecified E55.9 Active 02330414 Problem DJD (degenerative joint disease), cervical M50.30 Active 35549519 Problem DJD (degenerative joint disease), lumbar M47.816 Active 263546321 Problem Impingement syndrome, shoulder, left M75.42 Act adamaris 236816772 Problem Insomnia G47.00 Active 819029848 Problem Colon cancer screening Z12.11 Active 793556439 Problem CKD (chronic kidney disease) stage 2, GFR 60-89 ml/min N18.2 Active 285896067 Problem prison (current) use of anticoagulants Z79.01 Active 613413006 Problem Diabetes mellitus with complication E11.8 Acti ve 341101600 Problem Impingement syndrome of right shoulder M75.41 A ctive 979758728 Problem 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 A60.02 Active 71610887 Problem Elevated PSA R97.2 Active 470452421 Problem Concern about STD in male without diagnosis Z71.1 Active 660630432 Problem 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 Active 08678616 Problem Mixed hyperlipidemia E78.2 Active 305525858 Problem Prostate cancer screening Z12.5 Active 150898 001 Problem Plantar fasciitis M72.2 Active 032554851 Problem Erythrocytosis D75.1 Active 993475656 Problem Factor 5 Leiden mutation, heterozygous D68.51 A ctive 188862299 ALLERGIES Allergen (clinical drug ingredient) Drug/Non Drug Allergy do cumented on EMR Reaction Allergy Type Onset Date Status morphine N/V Non Drug Allergy Active atorvastatin Lipitor([facility] Code:[address]-83) Myalgia Drug Allergy Active ENCOUNTERS from 1965 to 2020-01-26 Encounter Location Date Provider Diagnosis [address] [address] Jan, 020 Trent Mari IMMUNIZATIONS Vaccine Route Administration Date Status Pneumococcal 0.5mL (Prevnar 13) IM Intramuscular Dec 19, 2018 Administered Influenza (18 yrs & older) Flublok IM Intramuscular Nov 25, 2018 Administered Pneumococcal Adult 0.5mL (Pneumovax 23) IM Intramuscular Jan 08, 2011 Administered Influenza (Pharmacy Given) IM Intramuscular Nov 09, 2017 Admi nistered Influenza (6mo & up) Fluzone IM Intramuscular Nov 17, 2013 Ad ministered Influenza (6mo & up) Fluzone [...] Education Language: Question Answer Notes Languages spoken: Maori Mandaen: Question Answer Notes Mandaen No caodaism beliefs that would impact health care. Sexual [...] Notes Start Da te End Date Status Eszopiclone 3 MG 1 tab Orally at bedtime prn insomnia for 30 day(s) Active Coumadin 6 MG 1 tablet Orally Once a day for 90 Active FreeStyle Jd [place] - 1 reader for 2 weeks topically Daily fo r 14 day(s) Jan, Active CPAP mask as directed QHS for 90 days Active Valtrex 1 GM 1 tablet Orally bid for 10 day(s) Nov, 0 Active Dulaglutide 1.5 MG/0.5ML as directed Subcutaneous every 7 days f or 90 day(s) Active Ezetimibe 10 MG 1 tablet Orally Once a day for 90 day(s) Active Viagra 100 MG 1 tablet as needed Orally Once a day prn ED for 30 day( s) Active Rosuvastatin Calcium 40 MG 1 tablet Orally Once a day for 90 day(s) Active Levofloxacin 500 MG 1 tablet Orally Once a day for 14 days Nov, Active Ergocalciferol 92953 UNIT 1 capsule Orally every 7 days for 90 day(s) Active MetFORMIN HCl ER 750 MG 1 tab Orally AC dinner for 90 day(s) Active Sildenafil Citrate 100 MG 1 tablet as needed Orally Once a day f or 30 Days June, Active CPAP Machine as directed _ Daily for 999 days Active Tizanidine HCl 2 MG 1 capsule as needed Orally T hree times a day prn pain for 90 day(s) Active Nexium 40 mg 1 tablet Orally Once a day for 90 day(s) Active FreeStyle Jd Sensor System - 1 sensor topically Daily for 28 Active Invokana 300 1 tablet before first meal Orally Once a day for 90 day( s) Active PROCEDURES No Information RESULTS No Results REASON FOR VISIT PT INR MEDICAL (GENERAL) HISTORY Type Description Date Medical History postoperative extensive righ t lower extremity DVT of femoral system and proximal pulmonary artery right lower lobe PE from cervical ACDF September 2009-status post TPA [facility]- negative hypercoaguablilty workup December 2009 except heterozygote [...] History cervical DJD status post ACD F [id number] CT cervical spine September 2010 Medical History 10/2012-R partial Achilles te ndon rupture-treated c equilizer boot c heel lift-Carlos Naidu Medical History Gilbert's disease Surgical History C6/C7 ACDF-Dr. Hernandez September 18, 2009 Surgical History L acromioplasty, clavicle excision-Sette r 09/2015 Surgical History colon-sigmoid losis, poor prep-Reindl 2017 Hospitalization History none Hospitalization History [facility] ED-Pneumonia 05/12/2018 Goals Section No Information Health Concerns No Information MEDICAL EQUIPMENT No Information MENTAL STATUS No Information FUNCTIONAL STATUS No Information ASSESSMENTS No Information PLAN OF TREATMENT No Information Insurance Providers Payer Name Payer Address Payer Phone Insured Name Patient Relati onship to Insured Coverage Start Date Coverage End Date [employer] [address] [facility] [phone] JUDY FIELDS self
--- OUTSIDE RECORDS SUMMARY | 2020-02-23 18:05 | CCD ---
Author Author [facility] Organization [facility] [employer] [facility] Address Unknown Phone Unavailable Care Team Providers Care Tower Equipment Installer Name Role Phone Trent Mari Unavailable PROBLEMS Type Condition ICD9-CM Code MGL10-IX Code Onset Dates Condition S tatus SNOMED Code Notes Problem Recurrent deep venous thrombosis I82.409 Active 491416407 Problem GERD (gastroesophageal reflux disease) K21.9 A ctive 573081384 Problem ED (erectile dysfunction) N52.9 Active 923088 002 Problem History of pulmonary embolus (PE) Z86.711 Active 749502931 Problem PATRICK (obstructive sleep apnea) G47.33 Active 56 986717 Problem Encounter for therapeutic drug monitoring Z51.81 Active 377695716 Problem Vitamin D deficiency, unspecified E55.9 Active 30070282 Problem DJD (degenerative joint disease), cervical M50.30 Active 12131636 Problem DJD (degenerative joint disease), lumbar M47.816 Active 022508562 Problem Impingement syndrome, shoulder, left M75.42 Act adamaris 364911952 Problem Insomnia G47.00 Active 495157902 Problem Colon cancer screening Z12.11 Active 255849966 Problem CKD (chronic kidney disease) stage 2, GFR 60-89 ml/min N18.2 Active 055772763 Problem 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 Active 414926811 Problem Diabetes mellitus with complication E11.8 Acti ve 866511306 Problem Impingement syndrome of right shoulder M75.41 A ctive 346427942 Problem 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 A60.02 Active 94205813 Problem Elevated PSA R97.2 Active 163806581 Problem Concern about STD in male without diagnosis Z71.1 Active 358281690 Problem Rodney disease E80.4 Active 31632892 Problem Mixed hyperlipidemia E78.2 Active 180435754 Problem Prostate cancer screening Z12.5 Active 734822 001 Problem Plantar fasciitis M72.2 Active 823795002 Problem Erythrocytosis D75.1 Active 735087319 Problem Factor 5 Leiden mutation, heterozygous D68.51 A ctive 920831483 ALLERGIES Allergen (clinical drug ingredient) Drug/Non Drug Allergy do cumented on EMR Reaction Allergy Type Onset Date Status morphine N/V Non Drug Allergy Active atorvastatin Lipitor([facility] Code:[address]-75) Myalgia Drug Allergy Active ENCOUNTERS from 1964 to 2020-02-16 Encounter Location Date Provider Diagnosis [address] [place] [address] Feb, 021 Trent Kamaljit 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 A60.02 ; Acute prostatitis N41.0 ; Diabetes mellitus with complication E11.8 ; Erythrocytosis D75.1 ; Prostate cancer screening Z12.5 ; PATRICK (obstructive sleep apnea) G47.33 ; Encounter for therapeutic drug monitoring Z51.81 ; Recurrent deep venous thrombosis I82.409 ; Plantar fasciitis M72.2 ; 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 ; Impingement syndrome of right shoulder M75.41 ; Impingement syndrome, shoulder, left M75.42 ; DJD (degenerative joint disease), cervical M50.30 ; Vitamin D deficiency, unspecified E55.9 ; Colon cancer screening Z12.11 ; History of pulmonary embolus (PE) Z86.711 ; DJD (degenerative joint disease), lumbar M47.816 ; Insomnia G47.00 ; ED (erectile dysfunction) N52.9 ; Rodney disease E80.4 ; Mixed hyperlipidemia E78.2 ; GERD (gastroesophageal reflux disease) K21.9 ; CKD (chronic kidney disease) stage 2, GFR 60-89 ml/min N18.2 ; Factor 5 Leiden mutation, heterozygous D68.51 and Elevated PSA R97.2 IMMUNIZATIONS Vaccine Route Administration Date Status Influenza (Pharmacy Given) IM Intramuscular Nov 09, 2017 Admi nistered Influenza (18 yrs & older) Flublok IM Intramuscular Nov 25, 2018 Administered Pneumococcal Adult 0.5mL (Pneumovax 23) IM Intramuscular Jan 08, 2011 Administered Pneumococcal 0.5mL (Prevnar 13) IM Intramuscular Dec 19, 2018 Administered Influenza (6mo & up) Fluzone [...] Education Language: Question Answer Notes Languages spoken: Danish Shinto: Question Answer Notes Shinto No congregation beliefs that would impact health care. Sexual [...] REASON FOR REFERRAL No Information VITAL SIGNS Weight 234.4 lbs Feb, Height 69 in Feb, BMI 34.61 kg/m2 Feb, Heart Rate 108 /min Feb, Respiratory Rate 18 /min Feb, Temperature 98.1 degrees Fahrenheit Feb, Oximetry 96% Feb, Blood pressure systolic 124 mm Hg Feb, Blood pressure diastolic 72 mm Hg Feb, MEDICATIONS Medication SIG (Take, Route, Frequency, Duration) Notes Start Da te End Date Status Trulicity 3 MG/0.5ML 3 mg Subcutaneous every 7 days for 90 day(s ) Feb, Active Valtrex 1 GM 1 tablet Orally bid for 10 day(s) Active Eszopiclone 3 MG 1 tab Orally at bedtime prn insomnia for 30 day(s) Active Invokana 300 1 tablet before first meal Orally Once a day for 90 day( s) Active Ergocalciferol 40101 UNIT 1 capsule Orally every 7 days for 90 day(s) Active Tizanidine HCl 2 MG 1 capsule as needed Orally T hree times a day prn pain for 90 day(s) Active Esomeprazole Magnesium 40 MG 1 capsule Orally every morning for 90 da y(s) Active CPAP Machine as directed _ Daily for 999 days Active CPAP mask as directed QHS for 90 days Active Rosuvastatin Calcium 40 MG 1 tablet Orally Once a day for 90 day(s) Active FreeStyle Jd [place] - 1 reader for 2 weeks topically Daily fo r 14 day(s) Jan, Active MetFORMIN HCl ER 750 MG 1 tab Orally AC dinner for 90 day(s) Active Valtrex 1 GM 1 tablet Orally Daily for 90 day(s) Feb, Active Viagra 100 MG 1 tablet as needed Orally Once a day prn ED for 30 day( s) Active Ezetimibe 10 MG 1 tablet Orally Once a day for 90 day(s) Active Coumadin 6 MG 1 tablet Orally Once a day Active Sildenafil Citrate 100 MG 1 tablet as needed Orally Once a day f or 30 Days June, Active FreeStyle Jd Sensor System - 1 sensor topically Daily for 30 days Active PROCEDURES No Information RESULTS No Results REASON FOR VISIT tip of penis red and sore MEDICAL (GENERAL) HISTORY Type Description Date Medical History postoperative extensive righ t lower extremity DVT of femoral system and proximal pulmonary artery right lower lobe PE from cervical ACDF September 2009-status post TPA thrombolysis of DVT at [facility]- negative hypercoaguablilty workup December 2009 except heterozygote [...] History cervical DJD status post ACD F [id number] CT cervical spine September 2010 Medical History 10/2012-R partial Achilles te ndon rupture-treated c equilizer boot c heel lift-Carlos Naidu Medical History Gilbert's disease Surgical History C6/C7 ACDF-Dr. Hernandez September 18, 2009 Surgical History L acromioplasty, clavicle excision-Sette r 09/2015 Surgical History colon-sigmoid losis, poor prep-Reindl 2017 Hospitalization History none Hospitalization History [facility] ED-Pneumonia 05/12/2018 Goals Section No Information Health Concerns No Information MEDICAL EQUIPMENT No Information MENTAL STATUS No Information FUNCTIONAL STATUS No Information ASSESSMENTS Encounter Date Diagnosis Assessment Notes Treatment Notes Treatm ent Clinical Notes Feb, 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 (ICD-10 - A60.02) 02/13/20 ~14D recurrent lesion at tip of penis near meatus; therefore, 1000 BID x 10D, then 1000 QD for suppresion (px preference) 11/15/19 new onset painful foreskin 2-3 mm coalescent vesicle/ulcers sp PCR cx; emperically + valcyc 1000 BID 10D (unprotected female intercourse 7D prior-last exposure 11/17/19) 11/24/19 + PCR HSVII/-I of foreskin vesicle 11/20/19 -B/C/HIV/RPR/GC/CH PCR/trich Feb, Acute prostatitis (ICD-10 - N41.0) No recurrent symptoms no previous ho p 11/15/19 dysuria c start of urination c decreased splayed stream, CASS cw prostatitis; therefor,e levo 500 14D c repeat INR in 3D 05/05/19 c inability to ejaculate x ~2W c 05/01 PSA to 4.4 and CASS cw prostatitis; therefore, levo 500 14D c resolved sx Feb, Diabetes mellitus with complication (ICD-10 - E1 1.8) Encouraged ADA diet, weight loss uses FSL2 Contingency: glim, max dulag; met at maximally tolerated dose BP cannot tolerate ACEI/ARB 01/29/20 8.3 GIRISH-IR 7 (118, 23); therefore, dulag 1.5 to 3 and then advised to email daily log FSL2 screen shots 04/2019 7.6 (ins 78) 12/2018 7.5 06/2018 referred to TI/gave HO for dietary rx/CBH max 20-30 gm qmeal/1200 K QD- never heard back per patient; therefore, 11/2018 referred back 02/2018 8.3; therefore, + dulag 1.5 q7D c + aerobic exercise 15 QD 11/2017 8.2; therefore, increased met XR 750 QD to BID, but severe diarrhea, therefore, decreased back to QD 04/2017 8.0; therefore, readded metformin XR 750 qAC dinner 12/2016 B12 818 s supplement 04/2019 80 07/2018 65 11/2017 77 04/2015 73 09/2013 16 12/2010 MINDA/creatinine 37 05 Feb, 2020 Erythrocytosis (ICD-10 - D75.1) chronic, mild favor 2 PATRICK/previous PE 04/2019 30%, 101 12/2018 16.2, 94, 5.2/162 r37/2.4, EPO 29 05/2013 hgb 16.8 05 Feb, 2020 Prostate cancer screening (ICD-10 - Z12.5) father c PSA detected PC at 70 11/20/19 1.8 04/2019 4.4-but dx/CASS cw prostatitis (sp levo 14D) 07/2018 2.7 03/2018 3.0 07/2016 1.6 07/2015 1.6 09/2014 3.0 05/2014 baseline 49 yo PSA 3.1 c CASS c/w prostatitis, given asx, no rx and recheck PSA 04/2008 PSA 1.0 Feb, PATRICK (obstructive sleep apnea) (ICD-10 - G47.33) Continue CPAP 6 cm via FFM Feb, Encounter for therapeutic drug monitoring (ICD-1 0 - Z51.81) Feb, Recurrent deep venous thrombosis (ICD-10 - I82.4 09) Continue lifeling Coumadin goal INR 2-3 12/2016 hgb stable 17.7, 91 Continue right above the knee compression stocking 20-30 mmHg. Also follows with Dr. 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 9) 12/2019 70, 8.3, 59 04/2017 24, 8.4, 78 on D3 5K QD; therefore, changed to D2 50 q7D 07/2016 26, 8.5, PTH 60; therefore, encouraged compliance 07/2015 32, 8.7 11/2014 32, 9.0, PTH 49 on D3 5K Feb, Colon cancer screening (ICD-10 - Z12.11) repeat colon 06/2019 2 06/2017 colon c inadequate prep-R 09/10/16 established c Reindl, patient cancelled colonoscopy 2 illness 08/2016 patient consents to screening colonoscopy-no previous colonoscopy; therefore, referred to R Feb, History of pulmonary embolus (PE) (ICD-10 - Z86. 711) rx as per recurrent DVT Feb, DJD (degenerative joint disease), lumbar (ICD-10 - M47.816) 04/2015 started home PT-gave HO-flare 2 overuse shoveling 4W prior Feb, Insomnia (ICD-10 - G47.00) Stable on when necessary eszop 3 QHS Feb, ED (erectile dysfunction) (ICD-10 - N52.9) Stable on Viagra prn 11/2014 decreased ability to maintain erection c intact libido; therefore Viagra 50/100 Feb, Rodney disease (ICD-10 - E80.4) No h/o heptatis/jaundice 11/2014 1.2 c direct 0.3 09/2014 normal LFTs x t blil 1.4 05/2002 1.0 c direct 0.3 10/2000 t bili 1.3 Feb, Mixed hyperlipidemia (ICD-10 - E78.2) 01/29/20 78/46/222 07/2018 68/43/126 11/2017 87/39/203, 96, 1.0 12/2016 89/57/182, 79 on rosuva 40, eziet 10 07/2016 non 128, 37, 509, CRP 0.4 but ate HIGH CBH meal qhs prior LFTs as per Josh's 04/2019 0.7, 1.0 03/2018 0.7, 0.9 03/2016 0.8 09/2013 0.7 04/2011 TSH 0.7 Feb, GERD (gastroesophageal reflux disease) (ICD-10 - K21.9) Stable on prn eso 40 qAM regimen-uses ~q3x qW Feb, CKD (chronic kidney disease) stage 2, GFR 60-89 ml/min (ICD-10 - N18.2) 11/20/19 18/1.1, 4.7 03/2018 16/1.0, 4.6 12/2016 21/1.0, 4.5 07/2015 stable at 16/1.2, 4.6 baseline cr 1.0-1.2 hgb as per erythro PTH as per vitamin D Feb, Factor 5 Leiden mutation, heterozygous (ICD-10 - D68.51) heterozygote c previous VTE; therefore, lifeling anticoagulation as per DVT/PE Feb, Elevated PSA (ICD-10 - R97.2) Patient without LUTs as per prostate cancer screening PLAN OF TREATMENT Medication Medication Name Sig Start Date Stop Date CPAP mask as directed QHS for 90 days Coumadin 6 MG 1 tablet Orally Once a day Tizanidine HCl 2 MG 1 capsule as needed Orally T hree times a day prn pain for 90 day(s) Esomeprazole Magnesium 40 MG 1 capsule Orally every morning for 90 day(s) Valtrex 1 GM 1 tablet Orally Daily for 90 day(s) Feb, Ezetimibe 10 MG 1 tablet Orally Once a day for 90 day(s) Viagra 100 MG 1 tablet as needed Orally Once a day prn ED for 30 day(s) MetFORMIN HCl ER 750 MG 1 tab Orally AC dinner for 90 day(s) Rosuvastatin Calcium 40 MG 1 tablet Orally Once a day for 90 day (s) Invokana 300 1 tablet before first meal Orally Once a day for 90 day(s) FreeStyle Jd Sensor System - 1 sensor topically Daily for 30 days Trulicity 3 MG/0.5ML 3 mg Subcutaneous every 7 days for 90 day(s ) Feb, Valtrex 1 GM 1 tablet Orally bid for 10 day(s) Eszopiclone 3 MG 1 tab Orally at bedtime prn insomnia for 30 day (s) Ergocalciferol 41421 UNIT 1 capsule Orally every 7 days for 90 d ay(s) Treatment Notes Assessment Notes Clinical Notes History of pulmonary embolus (PE) rx as per recurrent DVT 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 02/13/20 ~14D recurr ent lesion at tip of penis near meatus; therefore, 1000 BID x 10D, then 1000 QD for suppresion (px preference)11/15/19 new onset painful foreskin 2-3 mm coalescent vesicle/ulcers sp PCR cx; emperically + valcyc 1000 BID 10D (unprotected female intercourse 7D prior-last exposure 11/17/19)11/24/19 + PCR HSVII/-I of foreskin dfolohh03/12/20 -B/C/HIV/RPR/GC/CH PCR/trich Colon cancer screening repeat colon 06/28 19 2 06/2017 colon c inadequate prep- 09/10/16 established c Reindl, patient cancelled colonoscopy 2 patient consents to screening colonoscopy-no previous colonoscopy; therefore, referred to R Acute prostatitis No recurrent symptom sno previous ho 11/15/19 dysuria c start of urination c decreased splayed stream, CASS cw prostatitis; therefor,e levo 500 14D c repeat INR in 3D05/05/19 c inability to ejaculate x ~2W c 05/01 PSA to 4.4 and CASS cw prostatitis; therefore, levo 500 14D c resolved sx Insomnia Stable on when neces roxie eszop 3 QHS Diabetes mellitus with complication Enco uraged ADA diet, weight lossuses [id number]: glim, max dulag; met at maximally tolerated doseBP cannot tolerate ACEI/ARB01/29/20 8.3 GIRISH-IR 7 (118, 23); therefore, dulag 1.5 to 3 and then advised to email daily log FSL2 screen shot 7.6 (ins 78)12/2018 7. referred to TI/gave HO for dietary rx/CBH max 20-30 gm qmeal/1200 K QD-never heard back per patient; therefore, 11/2018 referred back02/2018 8.3; therefore, + dulag 1.5 q7D c + aerobic exercise 15 QD11/2017 8.2; therefore, increased met XR 750 QD to BID, but severe diarrhea, therefore, decreased back to QD04/2017 8.0; therefore, readded metformin XR 750 qAC uunezb81/2017 B12 818 s supplement04/2019 806 6510 773 738 161/2010 MINDA/creatinine 37 DJD (degenerative joint disease), lumbar 04/2015 started home PT-gave HO-flare 2 overuse shoveling 4W prior Erythrocytosis chronic, mildfavor 2 PATRICK/previous PE04/2019 30%, 73880 16.2, 94, 5.2/162 r37/2.4, EPO 294/2014 hgb 16.8 Rodney disease No h/o heptatis/fabiola dice1 1.2 c direct 0. normal LFTs x t blil 1. 1.0 c direct 0. t bili 1.3 Prostate cancer screening father c PSA d etected PC at 1. 4.4-but dx/CASS cw prostatitis (sp levo 14D)07/2018 2. 3.07/2016 1. 1. 3.05/2014 baseline 49 yo PSA 3.1 c CASS c/w prostatitis, given asx, no rx and recheckPSA 04/2008 PSA 1.0 ED (erectile dysfunction) Stable on Viag ra prn1 decreased ability to maintain erection c intact libido; therefore Viagra 50/100 PATRICK (obstructive sleep apnea) Continue C PAP 6 cm via FFM GERD (gastroesophageal reflux disease) S table on prn eso 40 qAM regimen-uses ~q3x qW Recurrent deep venous thrombosis Continu e lifeling Coumadin goal INR 2- hgb stable 17.7, 91Continue right above the knee compression stocking 20-30 mmHg[address]Also follows with [address] Quezada Mixed hyperlipidemia 01/29/20 /2018 68/43/02674 87/39/203, 96, 1.011/2016 89/57/182, 79 on rosuva 40, eziet 106 non 128, 37, 509, CRP 0.4 but ate HIGH CBH meal qhs priorLFTs as per Josh' 0.7, 1.03/2018 0.7, 0. 0. 0. TSH 0.7 CKD (chronic kidney disease) stage 2, GFR 60-89 ml/min 11/20/19 18/1.1, 4. 16/1.0, 4.611 21/1.0, 4. stable at 16/1.2, 4.6baseline cr 1.0-1.2hgb as per erythroPTH as per vitamin D Vitamin D deficiency, unspecified 0 70, 8.3, 593 24, 8.4, 78 on D3 5K QD; therefore, changed to D2 50 q7D07/2016 26, 8.5, PTH 60; therefore, encouraged compliance07/2015 32, 8. 32, 9.0, PTH 49 on D3 5K Elevated PSA Patient without LUTs as per prostate cancer screening DJD (degenerative joint disease), cervical Stable on home PT and Flexeril 10 QD pr changed cyclo 10 to tiz 2 BID prn (2 sedation c cyclo) Factor 5 Leiden mutation, heterozygous h eterozygote c previous VTE; therefore, lifeling anticoagulation as per DVT/PE Plantar fasciitis R PF02/2018 gave HO, recommended orthotic, roller, home PT Impingement syndrome of right shoulder s imilar to L; therefore, 07/2017 referred to Setter who started PT/MRI Impingement syndrome, shoulder, left Sta ble sp surgery-Setter Future Test Test Name Order Date HIV 1&2 ANTIBODY SCREEN 20200513 HEPATITIS B SURFACE ANTIGEN 20200513 HEPATITIS C ANTIBODY INDEX 20200513 HEMOGLOBIN A1c 20200513 Comprehensive Metabolic Profile (CMP) 20200513 CBC with Differential 20200513 FERRITIN 20200513 TOTAL IRON BINDING CAPACIT 20200513 VITAMIN D 25-HYDROXY 20200513 PTH INTACT 20200513 PT & APTT 20200513 Next Appt Details 4M, BW 1W prior and INR in 3D Reason: Provider Name:Janina Hernandez, 2020-- 01:30:00 PM, [address] [place], [address], Provider Name:Trent Mari, 2020-04-22 0 1:45:00 PM, [address] [place], [address], Insurance Providers Payer Name Payer Address Payer Phone Insured Name Patient Relati onship to Insured Coverage Start Date Coverage End Date [facility] [address] [facility] [employer] [id number] [id number] JUDY FIELDS self
--- OUTSIDE RECORDS SUMMARY | 2020-02-23 18:05 | CCD ---
Author Author [facility] Organization [employer] Address Unknown Phone Unavailable Care Team Providers Care Adhesive Bandage Making Operator Name Role Phone Trent Mari Unavailable PROBLEMS Type Condition ICD9-CM Code BPY90-TT Code Onset Dates Condition S tatus SNOMED Code Notes Problem Recurrent deep venous thrombosis I82.409 Active 329192320 Problem GERD (gastroesophageal reflux disease) K21.9 A ctive 911471589 Problem ED (erectile dysfunction) N52.9 Active 157530 002 Problem History of pulmonary embolus (PE) Z86.711 Active 636525667 Problem PATRICK (obstructive sleep apnea) G47.33 Active 78 888796 Problem Encounter for therapeutic drug monitoring Z51.81 Active 869983387 Problem Vitamin D deficiency, unspecified E55.9 Active 78560906 Problem DJD (degenerative joint disease), cervical M50.30 Active 90703187 Problem DJD (degenerative joint disease), lumbar M47.816 Active 072171369 Problem Impingement syndrome, shoulder, left M75.42 Act adamaris 830015725 Problem Insomnia G47.00 Active 597115918 Problem Colon cancer screening Z12.11 Active 741895293 Problem CKD (chronic kidney disease) stage 2, GFR 60-89 ml/min N18.2 Active 635963641 Problem senior care (current) use of anticoagulants Z79.01 Active 966086335 Problem Diabetes mellitus with complication E11.8 Acti ve 877280829 Problem Impingement syndrome of right shoulder M75.41 A ctive 614721796 Problem 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 A60.02 Active 64929674 Problem Elevated PSA R97.2 Active 177511113 Problem Concern about STD in male without diagnosis Z71.1 Active 978243191 Problem [place] disease E80.4 Active 92385477 Problem Mixed hyperlipidemia E78.2 Active 220131779 Problem Prostate cancer screening Z12.5 Active 018609 001 Problem Plantar fasciitis M72.2 Active 555522919 Problem Erythrocytosis D75.1 Active 095351412 Problem Factor 5 Leiden mutation, heterozygous D68.51 A ctive 882902814 ALLERGIES Allergen (clinical drug ingredient) Drug/Non Drug Allergy do cumented on EMR Reaction Allergy Type Onset Date Status morphine N/V Non Drug Allergy Active atorvastatin Lipitor([facility] Code:[address]-01) Myalgia Drug Allergy Active ENCOUNTERS from 1964 to 2020-02-05 Encounter Location Date Provider Diagnosis [address] [address] Jan, 020 Trent Mari IMMUNIZATIONS Vaccine Route Administration Date Status Influenza [...] Language: Question Answer Notes Languages spoken: Danish Quaker: Question Answer Notes Quaker No yazdanism beliefs that would impact health care. Sexual [...] Notes Start Da te End Date Status FreeStyle Jd [place] - 1 reader for 2 weeks topically Daily fo r 14 day(s) Jan, Active Valtrex 1 GM 1 tablet Orally bid for 10 day(s) Nov, 0 Active Coumadin 6 MG 1 tablet Orally Once a day for 90 Active CPAP mask as directed QHS for 90 days Active Ergocalciferol 85313 UNIT 1 capsule Orally every 7 days for 90 day(s) Active Dulaglutide 1.5 MG/0.5ML as directed Subcutaneous [...] Orally AC dinner for 90 day(s) Active Invokana 300 1 tablet before first meal Orally Once a day for 90 day( s) Active CPAP Machine as directed _ Daily for 999 days Active Sildenafil Citrate 100 MG 1 tablet as needed Orally Once a day f or 30 Days June, Active Nexium 40 mg 1 tablet Orally Once a day for 90 day(s) Active FreeStyle Jd Sensor System - 1 sensor topically Daily for 28 Active Eszopiclone 3 MG 1 tab Orally at bedtime prn insomnia for 30 day(s) Active PROCEDURES No Information RESULTS No Results REASON FOR VISIT 4-5 month appointment MEDICAL (GENERAL) HISTORY Type Description Date Medical History postoperative extensive righ t lower extremity DVT of femoral system and proximal pulmonary artery right lower lobe PE from cervical ACDF September 2009-status post TPA thrombolysis of DVT at [facility]- negative hypercoaguablilty workup December 2009 except heterozygote [...] History cervical DJD status post ACD F Q5-M4-zqpppy CT cervical spine September 2010 Medical History 10/2012-R partial Achilles te ndon rupture-treated c equilizer boot c heel lift-Carlos Naidu Medical History Gilbert's disease Surgical History C6/C7 ACDF-Dr. Hernandez September 18, 2009 Surgical History L acromioplasty, clavicle excision-Sette r 09/2015 Surgical History colon-sigmoid losis, poor prep-Reindl 2017 Hospitalization History none Hospitalization History [facility] ED-Pneumonia 05/12/2018 Goals Section No Information Health Concerns No Information MEDICAL EQUIPMENT No Information MENTAL STATUS No Information FUNCTIONAL STATUS No Information ASSESSMENTS No Information PLAN OF TREATMENT Medication Medication Name Sig Start Date Stop Date Coumadin 6 MG 1 tablet Orally Once a day for 90 Ergocalciferol 88279 UNIT 1 capsule Orally every 7 days for 90 d ay(s) Next Appt Details Provider Name:Janina Hernandez, 03-04 01:30:00 PM, [address] [place] [address], [id number], Provider Name:Trent Mari, 2020-04-22 0 1:45:00 PM, [address] [place] [address], [phone], Insurance Providers Payer Name Payer Address Payer Phone Insured Name Patient Relati onship to Insured Coverage Start Date Coverage End Date [facility] [place] [address] [facility] [address] JUDY FIELDS self
--- OUTSIDE RECORDS SUMMARY | 2020-02-23 18:05 | CCD ---
Author Author [employer] [facility] Syst ems Organization [employer] Syst em[employer] Address Unknown Phone Unavailable Care Team Providers Care Needle Grinder Name Role Phone Yvonne Rubi Unavailable PROBLEMS Type Condition ICD9-CM Code [id number] Code Onset Dates Condition S tatus SNOMED Code Notes Problem Recurrent deep venous thrombosis I82.409 Active 628164344 Problem GERD (gastroesophageal reflux disease) K21.9 A ctive 320742376 Problem ED (erectile dysfunction) N52.9 Active 081850 002 Problem History of pulmonary embolus (PE) Z86.711 Active 936206363 Problem PATRICK (obstructive sleep apnea) G47.33 Active 78 436617 Problem Encounter for therapeutic drug monitoring Z51.81 Active 892688149 Problem Vitamin D deficiency, unspecified E55.9 Active 50802238 Problem DJD (degenerative joint disease), cervical M50.30 Active 11272635 Problem DJD (degenerative joint disease), lumbar M47.816 Active 699865779 Problem Impingement syndrome, shoulder, left M75.42 Act adamaris 859167471 Problem Insomnia G47.00 Active 516088860 Problem Colon cancer screening Z12.11 Active 671436656 Problem CKD (chronic kidney disease) stage 2, GFR 60-89 ml/min N18.2 Active 076572985 Problem long-term (current) use of anticoagulants Z79.01 Active 875794559 Problem Diabetes mellitus with complication E11.8 Acti ve 918835534 Problem Impingement syndrome of right shoulder M75.41 A ctive 103493801 Problem 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 A60.02 Active 23844806 Problem Elevated PSA R97.2 Active 637043401 Problem Concern about STD in male without diagnosis Z71.1 Active 819378920 Problem 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 Active 90941309 Problem Mixed hyperlipidemia E78.2 Active 228084537 Problem Prostate cancer screening Z12.5 Active 777779 001 Problem Plantar fasciitis M72.2 Active 839725304 Problem Erythrocytosis D75.1 Active 584242398 Problem Factor 5 Leiden mutation, heterozygous D68.51 A ctive 191759090 ALLERGIES Allergen (clinical drug ingredient) Drug/Non Drug Allergy do cumented on EMR Reaction Allergy Type Onset Date Status morphine N/V Non Drug Allergy Active atorvastatin Lipitor([facility] Code:[address]-80) Myalgia Drug Allergy Active ENCOUNTERS from 1964 to 2019-12-26 Encounter Location Date Provider Diagnosis [address] [address] 13 Dec, 2019 Yvonne Rubi Encounter for therapeutic drug monitorin g Z51.81 ; Recurrent deep venous thrombosis I82.409 and predatory 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 Sexual [...] FOR REFERRAL No Information VITAL SIGNS Weight 230 lbs Dec, Height 69 in Dec, BMI 33.96 kg/m2 Dec, Heart Rate 87 /min Dec, Respiratory Rate 18 /min Dec, Temperature 98 degrees Fahrenheit Dec, Oximetry 99% Dec, Blood pressure systolic 124 mm Hg Dec, Blood pressure diastolic 78 mm Hg Dec, MEDICATIONS Medication SIG (Take, Route, Frequency, Duration) Notes Start Da te End Date Status Eszopiclone 3 MG 1 tab Orally at bedtime prn insomnia for 30 day(s) Active Coumadin 6 MG 1 tablet Orally Once a day for 90 Active Kabanchik Jd Culbertson - 1 reader for 2 weeks topically [...] day for 14 days Nov, Active Ergocalciferol 96042 UNIT 1 capsule Orally every 7 days [...] day( s) Active PROCEDURES No Information RESULTS Component Value Reference Range PT-INR Fingerstick Reviewed date:12/22/2019 16:51:41 Interpretation: Performing Lab:[facility] [place], [place] [address] INR 2.3 Verified Patient's Name and KV Current Dose 1 held wednesday 6 mg ROW Current Dose 2 Tab Strength 6mg Indication for Anticoagulation DVT Recent Bleeding no Internal QC Acceptable (Y/N) 2-3 Therapeutic Range Education Given (Date / Initials) New Dose 1 6 mg daily New Dose 2 Weekly Total Next PT-INR 4 weeks - - REASON FOR VISIT PT INR MEDICAL (GENERAL) HISTORY Type Description Date Medical History postoperative extensive righ t lower extremity DVT of femoral system and proximal pulmonary artery right lower lobe PE from cervical ACDF September 2009-status post TPA thrombolysis of DVT at [facility]- negative hypercoaguablilty workup December 2009 except heterozygote [...] History cervical DJD status post ACD F [id number]-mesidg CT cervical spine September 2010 Medical History 10/2012-R partial Achilles te ndon rupture-treated c equilizer boot c heel lift-Carlos Naidu Medical History Gilbert's disease Surgical History C6/C7 ACDF-Dr. Hernandez September 18, 2009 Surgical History L acromioplasty, clavicle excision-Sette r 09/2015 Surgical History colon-sigmoid losis, poor prep-Reindl 2017 Hospitalization History none Hospitalization History [facility] ED-Pneumonia 05/12/2018 Goals Section No Information Health Concerns No Information MEDICAL EQUIPMENT No Information MENTAL STATUS No Information FUNCTIONAL STATUS No Information ASSESSMENTS Encounter Date Diagnosis Assessment Notes Treatment Notes Treatm ent Clinical Notes Dec, Encounter for therapeutic drug monitoring (ICD-1 0 - Z51.81) Dec, Recurrent deep venous thrombosis (ICD-10 - I82.4 09) 13 Dec, 2019 predatory animal exterminator (current) use of anticoagulants (ICD-1 0 - Z79.01) PLAN OF TREATMENT No Information Insurance Providers Payer Name Payer Address Payer Phone Insured Name Patient Relati onship to Insured Coverage Start Date Coverage End Date [facility] [id number] [facility] [address] JUDY FIELDS self
--- OUTSIDE RECORDS SUMMARY | 2020-02-23 18:05 | CCD ---
Author Author [employer] [facility] Syst ems Organization [employer] Address Unknown Phone Unavailable Care Team Providers Care Votator Machine Operator Name Role Phone Trent Mari Unavailable PROBLEMS Type Condition ICD9-CM Code [id number] Code Onset Dates Condition S tatus SNOMED Code Notes Problem Recurrent deep venous thrombosis I82.409 Active 138591175 Problem GERD (gastroesophageal reflux disease) K21.9 A ctive 310344529 Problem ED (erectile dysfunction) N52.9 Active 173152 002 Problem History of pulmonary embolus (PE) Z86.711 Active 017373984 Problem PATRICK (obstructive sleep apnea) G47.33 Active 78 736186 Problem Encounter for therapeutic drug monitoring Z51.81 Active 247800539 Problem Vitamin D deficiency, unspecified E55.9 Active 30507285 Problem DJD (degenerative joint disease), cervical M50.30 Active 98085428 Problem DJD (degenerative joint disease), lumbar M47.816 Active 843371979 Problem Impingement syndrome, shoulder, left M75.42 Act adamaris 720486673 Problem Insomnia G47.00 Active 243201425 Problem Colon cancer screening Z12.11 Active 184892553 Problem CKD (chronic kidney disease) stage 2, GFR 60-89 ml/min N18.2 Active 445859236 Problem retirement (current) use of anticoagulants Z79.01 Active 658051991 Problem Diabetes mellitus with complication E11.8 Acti ve 095230212 Problem Impingement syndrome of right shoulder M75.41 A ctive 212663844 Problem 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 A60.02 Active 63957590 Problem Elevated PSA R97.2 Active 557644071 Problem Concern about STD in male without diagnosis Z71.1 Active 054446836 Problem 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 Code:[address]-98) Myalgia Drug Allergy Active ENCOUNTERS from 1964 to 2020-02-05 Encounter Location Date Provider Diagnosis [address] [place] [address] [place] [address] Jan, 020 Trent Mari IMMUNIZATIONS Vaccine Route [...] Education Language: Question Answer Notes Languages spoken: Sinhala Presybeterian: Question Answer Notes Presybeterian No faith beliefs that would impact health care. Sexual [...] Da te End Date Status FreeStyle Jd [place] - 1 reader for 2 weeks topically Daily fo r 14 day(s) Jan, Active Valtrex 1 GM 1 tablet Orally bid for 10 day(s) Nov, 0 Active Coumadin 6 MG 1 tablet Orally Once a day for 90 Active CPAP mask as directed QHS for 90 days Active Ergocalciferol 22163 UNIT 1 capsule Orally every 7 days [...] Information RESULTS No Results REASON FOR VISIT No Information MEDICAL (GENERAL) HISTORY Type Description Date Medical History postoperative extensive righ t lower extremity DVT of femoral system and proximal pulmonary artery right lower lobe PE from cervical ACDF September 2009-status post TPA thrombolysis of DVT at [facility]- negative hypercoaguablilty workup December 2009 except heterozygote for Factor 5 Leiden (([id number]), December 2010 normal protein C and S antigen and functional activity/08/12/12 recurrent RLE DVT, negative CTA-lifelong Coumadin goal INR 2-3 Medical History chronic MDD/YOEL/comorbid insomnia Medical History hyperlipidemia 2B Medical History GERD Medical History T2DM NID c microalbuminuria Medical History obesity Medical History PATRICK on CPAP Medical History left supraspinatus tendinitis Medical History cervical DJD status post ACD F [id number]-jcbzax CT cervical spine September 2010 Medical History 10/2012-R partial Achilles te ndon rupture-treated c equilizer boot c heel lift-Carlos Naidu Medical History Gilbert's disease Surgical History C6/C7 ACDF-Dr. Hernandez September 18, 2009 Surgical History L acromioplasty, clavicle excision-Sette r 09/2015 Surgical History colon-sigmoid losis, poor prep-Reindl 2017 Hospitalization History none Hospitalization History [facility] ED-Pneumonia 05/12/2018 Goals Section No Information Health Concerns No Information MEDICAL EQUIPMENT No Information MENTAL STATUS No Information FUNCTIONAL STATUS No Information ASSESSMENTS No Information PLAN OF TREATMENT Medication Medication Name Sig Start Date Stop Date Coumadin 6 MG 1 tablet Orally Once a day for 90 Ergocalciferol 89398 UNIT 1 capsule Orally every 7 days for 90 d ay(s) Next Appt Details Provider Name:Janina Hernandez, 03-04 01:30:00 PM, [address] [place] [address], [phone], Provider Name:Trent Mari, 2020-04-22 0 1:45:00 PM, [address] [place] [address], [phone], Insurance Providers Payer Name Payer Address Payer Phone Insured Name Patient Relati onship to Insured Coverage Start Date Coverage End Date [facility] [place] [address] [facility] [address] [phone] JUDY FIELDS self
--- OUTSIDE RECORDS SUMMARY | 2020-02-23 18:06 | CCD ---
Author Author [employer] Organization [employer] Address Unknown Phone Unavailable Care Team Providers Care Plastic Surgery Technician Name Role Phone Trent Mari Unavailable PROBLEMS Type Condition ICD9-CM Code UPI58-EY Code Onset Dates Condition S tatus SNOMED Code Notes Problem Vitamin D deficiency, unspecified E55.9 Active 44000146 Problem Mixed hyperlipidemia E78.2 Active 927429522 Problem Insomnia G47.00 Active 829997811 Problem Encounter for therapeutic drug monitoring Z51.81 Active 918500178 Problem DJD (degenerative joint disease), cervical M50.30 Active 68290119 Problem DJD (degenerative joint disease), lumbar M47.816 Active 962235825 Problem CKD (chronic kidney disease) stage 2, GFR 60-89 ml/min N18.2 Active 416971994 Problem ED (erectile dysfunction) N52.9 Active 396141 002 Problem Impingement syndrome, shoulder, left M75.42 Act adamaris 809771234 Problem Recurrent deep venous thrombosis I82.409 Active 152190033 Problem History of pulmonary embolus (PE) Z86.711 Active 900423105 Problem 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 Z79.01 Active 476926264 Problem Diabetes mellitus with complication E11.8 Acti ve 521691012 Problem Factor 5 Leiden mutation, heterozygous D68.51 A ctive 895703403 Problem PATRICK (obstructive sleep apnea) G47.33 Active 78 778998 Problem 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 Active 72814243 Problem Concern about STD in male without diagnosis Z71.1 Active 562635214 Problem Colon cancer screening Z12.11 Active 537934427 Problem GERD (gastroesophageal reflux disease) K21.9 A ctive 480601624 Problem Elevated PSA R97.2 Active 261355945 Problem Impingement syndrome of right shoulder M75.41 A ctive 762055536 Problem Prostate cancer screening Z12.5 Active 818568 001 Problem Plantar fasciitis M72.2 Active 983501999 Problem Erythrocytosis D75.1 Active 515759524 ALLERGIES Allergen (clinical drug ingredient) Drug/Non Drug Allergy do cumented on EMR Reaction Allergy Type Onset Date Status morphine N/V Non Drug Allergy Active atorvastatin Lipitor([facility] Code:[address]-33) Myalgia Drug Allergy Active ENCOUNTERS from 1964 to 2019-11-20 Encounter Location Date Provider Diagnosis [facility] [address] [place] [address] Nov, 020 Trent Mari Mixed hyperlipidemia E78.2 ; Diabetes mellitus with complication E11.8 ; Prostate cancer screening Z12.5 ; Factor 5 Leiden mutation, heterozygous D68.51 and Concern about STD in male without diagnosis Z71.1 IMMUNIZATIONS Vaccine Route Administration Date Status Influenza (18 yrs & older) Flublok IM Intramuscular Nov 25, 2018 Administered Influenza (Pharmacy Given) IM Intramuscular Nov 09, 2017 Admi nistered Pneumococcal Adult 0.5mL (Pneumovax 23) IM Intramuscular [...] Education Language: Question Answer Notes Languages spoken: Turkmen Religious: Question Answer Notes Religious No episcopalian beliefs that would impact health care. Sexual [...] MEDICATIONS Medication SIG (Take, Route, Frequency, Duration) Start Date En d Date Status FreeStyle Jd Sensor System - 2 sensor topically Daily for 30 days Jan, Active CPAP Machine as directed _ Daily for 999 days Active MetFORMIN HCl ER 750 MG 1 tab Orally AC dinner Active Tizanidine HCl 2 MG 1 capsule as needed Orally T hree times a day prn pain for 90 day(s) Active Eszopiclone 3 MG 1 tab Orally at bedtime prn insomnia for 30 day(s) Active Coumadin 6 MG 1 tablet Orally Once a day Active Sildenafil Citrate 100 MG 1 tablet as needed Orally Once a d ay for 30 Days June, Active FreeStyle Jd Eagle - 1 reader for 2 weeks topically Raphael y for 14 day(s) Jan, Active Dulaglutide 1.5 MG/0.5ML as directed Subcutaneous every 7 days f or 90 day(s) Active Ezetimibe 10 MG 1 tablet Orally Once a day for 90 Active CPAP mask as directed QHS for 90 days Active Invokana 300 1 tablet before first meal Orally Once a day for 90 da y(s) Active Rosuvastatin Calcium 40 MG 1 tablet Orally Once a day for 90 day(s) Active Trulicity 1.5 MG/0.5ML INJECT 1PEN SUBCUTANEOUSLY ONCE A WEEK for 9 0 Active Ergocalciferol 58959 UNIT 1 capsule Orally every 7 days for 90 day( s) Active Nexium 40 mg 1 tablet Orally Once a day for 90 day(s) Active PROCEDURES No Information RESULTS REASON FOR VISIT Problem with painful urination MEDICAL (GENERAL) HISTORY Type Description Date Medical History postoperative extensive righ t lower extremity DVT of femoral system and proximal pulmonary artery right lower lobe PE from cervical ACDF September 2009-status post TPA thrombolysis of DVT at [facility]- negative hypercoaguablilty workup December 2009 [...] History cervical DJD status post ACD F [id number]-yijrbs CT cervical spine September 2010 Medical History 10/2012-R partial Achilles te ndon rupture-treated c equilizer boot c heel lift-Carlos Naidu Medical History Gilbert's disease Surgical History C6/C7 ACDF-Dr. Hernandez September 18, 2009 Surgical History L acromioplasty, clavicle excision-Sette r 09/2015 Surgical History colon-sigmoid losis, poor prep-Reindl 2017 Hospitalization History none Hospitalization History [facility] ED-Pneumonia 05/12/2018 Goals Section No Information Health Concerns No Information MEDICAL EQUIPMENT No Information MENTAL STATUS No Information FUNCTIONAL STATUS No Information ASSESSMENTS Encounter Date Diagnosis Notes Nov, Mixed hyperlipidemia (ICD-10 - E78.2) Nov, Prostate cancer screening (ICD-10 - Z12. 5) Nov, Diabetes mellitus with complication (ICD -10 - E11.8) Nov, Concern about STD in male without diagno sis (ICD-10 - Z71.1) Nov, Factor 5 Leiden mutation, heterozygous ( ICD-10 - D68.51) PLAN OF TREATMENT Medication Medication Name Sig Start Date Stop Date FreeStyle Jd Sensor System - 2 sensor topically Daily for 30 days Jan, Next Appt Details Provider Name:Trent Mari, 2019-11-24 0 3:00:00 PM, [address] [place], [address], Insurance Providers Payer Name Payer Address Payer Phone Insured Name Patient Relati onship to Insured Coverage Start Date Coverage End Date [facility] [address] [facility] [address] JUDY FIELDS self
--- OUTSIDE RECORDS SUMMARY | 2020-02-23 18:06 | CCD ---
Author Author [facility]st [facility]s Organization [employer] Address Unknown Phone Unavailable Care Team Providers Care Highway Painter Name Role Phone Trent Mari Unavailable PROBLEMS Type Condition ICD9-CM Code GRH60-SV Code Onset Dates Condition S tatus SNOMED Code Notes Problem Recurrent deep venous thrombosis I82.409 Active 166245149 Problem GERD (gastroesophageal reflux disease) K21.9 A ctive 200405525 Problem ED (erectile dysfunction) N52.9 Active 445056 002 Problem History of pulmonary embolus (PE) Z86.711 Active 339875745 Problem PATRICK (obstructive sleep apnea) G47.33 Active 78 485349 Problem Encounter for therapeutic drug monitoring Z51.81 Active 869986561 Problem Vitamin D deficiency, unspecified E55.9 Active 96565700 Problem DJD (degenerative joint disease), cervical M50.30 Active 52008018 Problem DJD (degenerative joint disease), lumbar M47.816 Active 603384944 Problem Impingement syndrome, shoulder, left M75.42 Act adamaris 628536270 Problem Insomnia G47.00 Active 332029664 Problem Colon cancer screening Z12.11 Active 093467865 Problem CKD (chronic kidney disease) stage 2, GFR 60-89 ml/min N18.2 Active 501357866 Problem [facility] (current) use of anticoagulants Z79.01 Active 749730401 Problem Diabetes mellitus with complication E11.8 Acti ve 006357957 Problem Impingement syndrome of right shoulder M75.41 A ctive 547774535 Problem 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 A60.02 Active 91416403 Problem Elevated PSA R97.2 Active 910938177 Problem Concern about STD in male without diagnosis Z71.1 Active 122183025 Problem 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 76277343 Problem Mixed hyperlipidemia E78.2 Active 639819836 Problem Prostate cancer screening Z12.5 Active 750863 001 Problem Plantar fasciitis M72.2 Active 488142034 Problem Erythrocytosis D75.1 Active 237345019 Problem Factor 5 Leiden mutation, heterozygous D68.51 A ctive 281797301 ALLERGIES Allergen (clinical drug ingredient) Drug/Non Drug Allergy do cumented on EMR Reaction Allergy Type Onset Date Status morphine N/V Non Drug Allergy Active atorvastatin Lipitor([facility] Code:[address]-52) Myalgia Drug Allergy Active ENCOUNTERS from 1965 to 2019-12-01 Encounter Location Date Provider Diagnosis [address] [address] Nov, 020 Trent Mari IMMUNIZATIONS Vaccine Route Administration [...] Education Language: Question Answer Notes Languages spoken: Malay Jewish: Question Answer Notes Jewish No voodoo beliefs that would impact health care. Sexual [...] Duration) Start Date En d Date Status Ergocalciferol 03685 UNIT 1 capsule Orally every 7 days for 90 day( s) Active FreeStyle Jd Sensor System - 2 sensor topically Daily for 30 days Jan, Active Valtrex 1 GM 1 tablet Orally bid for 10 day(s) Nov, Active Rosuvastatin Calcium 40 MG 1 tablet Orally Once a day for 90 day(s) Active Levofloxacin 500 MG 1 tablet Orally Once a day for 14 days Nov, Active Eszopiclone 3 MG 1 tab Orally at bedtime prn insomnia for 30 day(s) Active MetFORMIN HCl ER 750 MG 1 tab Orally AC dinner for 90 day(s) Active Dulaglutide 1.5 MG/0.5ML as directed Subcutaneous every 7 days f or 90 day(s) Active Tizanidine HCl 2 MG 1 capsule as needed Orally T hree times a day prn pain for 90 day(s) Active Coumadin 6 MG 1 tablet Orally Once a day Active CPAP mask as directed QHS for 90 days Active Invokana 300 1 tablet before first meal Orally Once a day for 90 da y(s) Active FreeStyle Jd Kerby - 1 reader for 2 weeks topically Raphael y for 14 day(s) Jan, Active Ezetimibe 10 MG 1 tablet Orally Once a day for 90 day(s) Active CPAP Machine as directed _ Daily for 999 days Active Viagra 100 MG 1 tablet as needed Orally Once a day prn ED for 30 da y(s) Active Nexium 40 mg 1 tablet Orally Once a day for 90 day(s) Active Sildenafil Citrate 100 MG 1 tablet as needed Orally Once a d ay for 30 Days June, Active PROCEDURES No Information RESULTS No Results REASON FOR VISIT No Information MEDICAL (GENERAL) HISTORY Type Description Date Medical History postoperative extensive righ t lower extremity DVT of femoral system and proximal pulmonary artery right lower lobe PE from cervical ACDF September 2009-status post TPA thrombolysis of DVT at [facility]- negative hypercoaguablilty workup December 2009 except [...] History cervical DJD status post ACD F [id number]-mdnkgv CT cervical spine September 2010 Medical History 10/2012-R partial Achilles te ndon rupture-treated c equilizer boot c heel lift-Carlos Naidu Medical History Gilbert's disease Surgical History C6/C7 ACDF-Dr. Hernandez September 18, 2009 Surgical History L acromioplasty, clavicle excision-Sette r 09/2015 Surgical History colon-sigmoid losis, poor prep-Reindl 2017 Hospitalization History none Hospitalization History [facility] ED-Pneumonia 05/12/2018 Goals Section No Information Health Concerns No Information MEDICAL EQUIPMENT No Information MENTAL STATUS No Information FUNCTIONAL STATUS No Information ASSESSMENTS No Information PLAN OF TREATMENT Medication Medication Name Sig Start Date Stop Date Tizanidine HCl 2 MG 1 capsule as needed Orally T hree times a day prn pain for 90 day(s) Viagra 100 MG 1 tablet as needed Orally Once a day prn ED for 30 day(s) Dulaglutide 1.5 MG/0.5ML as directed Subcutaneous every 7 days f or 90 day(s) MetFORMIN HCl ER 750 MG 1 tab Orally AC dinner for 90 day(s) CPAP mask as directed QHS for 90 days Rosuvastatin Calcium 40 MG 1 tablet Orally Once a day for 90 day (s) Invokana 300 1 tablet before first meal Orally Once a day for 90 day(s) Eszopiclone 3 MG 1 tab Orally at bedtime prn insomnia for 30 day (s) Ezetimibe 10 MG 1 tablet Orally Once a day for 90 day(s) Nexium 40 mg 1 tablet Orally Once a day for 90 day(s) Coumadin 6 MG 1 tablet Orally Once a day Ergocalciferol 83287 UNIT 1 capsule Orally every 7 days for 90 d ay(s) CPAP Machine as directed _ Daily for 999 days Valtrex 1 GM 1 tablet Orally bid for 10 day(s) Nov, Levofloxacin 500 MG 1 tablet Orally Once a day for 14 days 2019 Next Appt Details Provider Name:Yvonne Rubi, 2019-02 04:00:00 PM, [address] [place], [address], Insurance Providers Payer Name Payer Address Payer Phone Insured Name Patient Relati onship to Insured Coverage Start Date Coverage End Date [facility] [id number] [facility] [address] [phone] JUDY FIELDS self
--- OUTSIDE RECORDS SUMMARY | 2020-02-23 18:06 | CCD ---
Author Author [employer] [facility]st ems Organization [employer] [facility] [facility] Address Unknown Phone Unavailable Care Team Providers Care Shot Peen Operator Name Role Phone Trent Mari Unavailable PROBLEMS Type Condition ICD9-CM Code [id number] Code Onset Dates Condition S tatus SNOMED Code Notes Problem Recurrent deep venous thrombosis I82.409 Active 854943772 Problem GERD (gastroesophageal reflux disease) K21.9 A ctive 217844855 Problem ED (erectile dysfunction) N52.9 Active 836478 002 Problem History of pulmonary embolus (PE) Z86.711 Active 072482739 Problem PATRICK (obstructive sleep apnea) G47.33 Active 78 969202 Problem Encounter for therapeutic drug monitoring Z51.81 Active 774566760 Problem Vitamin D deficiency, unspecified E55.9 Active 81100753 Problem DJD (degenerative joint disease), cervical M50.30 Active 65714388 Problem DJD (degenerative joint disease), lumbar M47.816 Active 852641506 Problem Impingement syndrome, shoulder, left M75.42 Act adamaris 520274833 Problem Insomnia G47.00 Active 749930522 Problem Colon cancer screening Z12.11 Active 728493518 Problem CKD (chronic kidney disease) stage 2, GFR 60-89 ml/min N18.2 Active 926803215 Problem terminal make up operator (current) use of anticoagulants Z79.01 Active 884109668 Problem Diabetes mellitus with complication E11.8 Acti ve 148746549 Problem Impingement syndrome of right shoulder M75.41 A ctive 762342000 Problem 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 A60.02 Active 36228849 Problem Elevated PSA R97.2 Active 565698459 Problem Concern about STD in male without diagnosis Z71.1 Active 407587103 Problem [place] disease E80.4 Active 41428781 Problem Mixed hyperlipidemia E78.2 Active 714309156 Problem Prostate cancer screening Z12.5 Active 668225 001 Problem Plantar fasciitis M72.2 Active 231317775 Problem Erythrocytosis D75.1 Active 599895992 Problem Factor 5 Leiden mutation, heterozygous D68.51 A ctive 244459450 ALLERGIES Allergen (clinical drug ingredient) Drug/Non Drug Allergy do cumented on EMR Reaction Allergy Type Onset Date Status morphine N/V Non Drug Allergy Active atorvastatin Lipitor([facility] Code:[address]-20) Myalgia Drug Allergy Active ENCOUNTERS from 1964 to 2019-12-01 Encounter Location Date Provider Diagnosis [address] [address] 16 Nov, 020 Trent Mari 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 A60.02 ; Acute prostatitis N41.0 ; Diabetes mellitus with complication E11.8 ; Erythrocytosis D75.1 ; Prostate cancer screening Z12.5 ; PATRICK (obstructive sleep apnea) G47.33 ; Encounter for therapeutic drug monitoring Z51.81 ; Recurrent deep venous thrombosis I82.409 ; Plantar fasciitis M72.2 ; terminal make up operator (current) use of anticoagulants Z79.01 ; Impingement syndrome of right shoulder M75.41 ; Impingement syndrome, shoulder, left M75.42 ; DJD (degenerative joint disease), cervical M50.30 ; Vitamin D deficiency, unspecified E55.9 ; Colon cancer screening Z12.11 ; History of pulmonary embolus (PE) Z86.711 ; DJD (degenerative joint disease), lumbar M47.816 ; Insomnia G47.00 ; ED (erectile dysfunction) N52.9 ; [place] disease E80.4 ; Mixed hyperlipidemia E78.2 ; [...] Language: Question Answer Notes Languages spoken: Danish Scientology: Question Answer Notes Scientology No protestant beliefs that would impact health care. Sexual [...] FOR REFERRAL No Information VITAL SIGNS Weight 224.0 lbs Nov, Height 69 in Nov, BMI 33.08 kg/m2 Nov, Heart Rate 99 /min Nov, Respiratory Rate 18 /min Nov, Temperature 97.5 degrees Fahrenheit Nov, Oximetry 99% Nov, Blood pressure systolic 112 mm Hg Nov, Blood pressure diastolic 72 mm Hg Nov, MEDICATIONS Medication SIG (Take, Route, Frequency, Duration) Start Date En d Date Status Ergocalciferol 83863 UNIT 1 capsule Orally every 7 days [...] a day for 90 da y(s) Active [employer] [place] - 1 reader for 2 weeks topically [...] Days June, Active PROCEDURES No Information RESULTS Component Value Reference Range HSV 1/2 BY PCR Reviewed date:11/30/2019 14:29:17 Interpretation: Performing Lab:[facility], [facility] [address] [place], [place] [id number] , ,[place] [address] HSV-1 DNA Negative Negative HSV-2 DNA Positive Negative REASON FOR VISIT 4M-Kamaljit FOLLOW UP MEDICAL (GENERAL) HISTORY Type Description Date Medical History postoperative extensive righ t lower extremity DVT of femoral system and proximal pulmonary artery right lower lobe PE from cervical ACDF September 2009-status post TPA thrombolysis of DVT at [facility]- negative hypercoaguablilty workup December 2009 except heterozygote [...] History cervical DJD status post ACD F [id number]-inxqsm CT cervical spine September 2010 Medical History 10/2012-R partial Achilles te ndon rupture-treated c equilizer boot c heel lift-Carlos Naidu Medical History Gilbert's disease Surgical History C6/C7 ACDF-Dr. Hernandez September 18, 2009 Surgical History L acromioplasty, clavicle excision-Sette r 09/2015 Surgical History colon-sigmoid losis, poor prep-Reindl 2017 Hospitalization History none Hospitalization History [facility] ED-Pneumonia 05/12/2018 Goals Section No Information Health Concerns No Information MEDICAL EQUIPMENT No Information MENTAL STATUS No Information FUNCTIONAL STATUS No Information ASSESSMENTS Encounter Date Diagnosis Notes Nov, Impingement syndrome of right shoulder ( ICD-10 - M75.41) Nov, long-term (current) use of anticoagulant s (ICD-10 - Z79.01) Nov, DJD (degenerative joint disease), cervic al (ICD-10 - M50.30) Nov, Impingement syndrome, shoulder, left (IC D-10 - M75.42) Nov, Encounter for therapeutic drug monitorin g (ICD-10 - Z51.81) Nov, PATRICK (obstructive sleep apnea) (ICD-10 - G47.33) Nov, Plantar fasciitis (ICD-10 - M72.2) Nov, Recurrent deep venous thrombosis (ICD-10 - I82.409) Nov, Colon cancer screening (ICD-10 - Z12.11) Nov, Vitamin D deficiency, unspecified (ICD-1 0 - E55.9) Nov, GERD (gastroesophageal reflux disease) ( ICD-10 - K21.9) Nov, Mixed hyperlipidemia (ICD-10 - E78.2) Nov, Acute prostatitis (ICD-10 - N41.0) Nov, Factor 5 Leiden mutation, heterozygous ( ICD-10 - D68.51) Nov, 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 (ICD-10 - A60.02) Nov, CKD (chronic kidney disease) stage 2, GFR 60-89 ml/min (ICD-10 - N18.2) Nov, Insomnia (ICD-10 - G47.00) Nov, DJD (degenerative joint disease), lumbar (ICD-10 - M47.816) Nov, [place] disease (ICD-10 - E80.4) Nov, ED (erectile dysfunction) (ICD-10 - N52. 9) Nov, Erythrocytosis (ICD-10 - D75.1) Nov, Diabetes mellitus with complication (ICD -10 - E11.8) Nov, Elevated PSA (ICD-10 - R97.2) Nov, Prostate cancer screening (ICD-10 - Z12. 5) Nov, History of pulmonary embolus (PE) (ICD-1 0 - Z86.711) PLAN OF TREATMENT Medication Medication Name Sig [...] 1 tablet Orally Once a day Ergocalciferol 73275 UNIT 1 capsule Orally every 7 days for 90 d ay(s) CPAP Machine as directed _ Daily for 999 days Valtrex 1 GM 1 tablet Orally bid for 10 day(s) Nov, Levofloxacin 500 MG 1 tablet Orally Once a day for 14 days 2019 Treatment Notes Assessment Notes Clinical Notes History of pulmonary embolus (PE) rx as per recurrent DVT 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 11/15/19 new onset painful foreskin 2-3 mm coalescent vesicle/ulcers sp PCR cx; emperically + valcyc 1000 BID 10D (unprotected female intercourse 7D prior-last exposure 11/17/19)11/20/19 -B/C/HIV/RPR Colon cancer screening repeat colon 06/27 20 2 06/2017 colon c inadequate prep- R8 established c Reindl, patient cancelled colonoscopy 2 patient consents to screening colonoscopy-no previous colonoscopy; therefore, referred to R Acute prostatitis no previous ho p10 dysuria c start of urination c decreased splayed stream, CASS cw prostatitis; therefor,e levo 500 14D c repeat INR in 3D05/05/19 c inability to ejaculate x ~2W c 05/01 PSA to 4.4 and CASS cw prostatitis; therefore, levo 500 14D c resolved sx Insomnia Stable on when neces roxie eszop 3 QHS Diabetes mellitus with complication Enco uraged ADA diet, weight lossContingency: glim, met at maximally tolerated doseBP cannot tolerate ACEI/ARB11/20/19 8.0-states 2 poor diet/low exercise-will restart04/2019 7.6 (ins 78)12/2018 7. referred to TI/gave HO for dietary rx/CBH max 20-30 gm qmeal/1200 K QD-never heard back per patient; therefore, 11/2018 referred back02/2018 8.3; therefore, + dulag 1.5 q7D c + aerobic exercise 15 QD11/2017 8.2; therefore, increased met XR 750 QD to BID, but severe diarrhea, therefore, decreased back to QD04/2017 8.0; therefore, readded metformin XR 750 qAC /2017 B12 818 s supplement04/2019 806 6510 7704/2015 738/2013 161/2010 MINDA/creatinine 37 DJD (degenerative joint disease), lumbar 04/2015 started home PT-gave HO-flare 2 overuse shoveling 4W prior Erythrocytosis chronic, mildfavor 2 PATRICK/previous PE04/2019 30%, 64540 16.2, 94, 5.2/162 r37/2.4, EPO 294/2014 hgb 16.8 [place] disease No h/o heptatis/fabiola dice1 1.2 c [...] (gastroesophageal reflux disease) S table on prn regimen-uses ~q3x qW Recurrent deep venous thrombosis Continu e lifeling Coumadin goal INR 2- hgb stable 17.7, 91Contingency: DOACContinue right above the knee compression stocking 20-30 mmHg[address]Also follows with [address] Quezada Mixed hyperlipidemia 04/2019 114// 2018 68/43/75234/2017 87/39/203, 96, 1.011/2017 89/57/182, 79 on rosuva 40, eziet 106 non 128, 37, 509, CRP 0.4 but ate HIGH CBH meal qhs priorLFTs as per Josh' 0.7, 1.03/2018 0.7, 0. 0. 0. TSH 0.7 CKD (chronic kidney disease) stage 2, GFR 60-89 ml/min 11/20/19 18/1.1, 4. 16/1.0, 4.611/2016 21/1.0, 4. stable at 16/1.2, 4.6baseline cr [...] syndrome, shoulder, left Sta ble sp surgery-Setter Treatment Notes Test Name Order Date CHLAMYDIA & GC DNA AMPLIFICAT 2019-12-01 Future Test Test Name Order Date HEMOGLOBIN A1c 20200224 INSULIN LEVEL 20200224 LIPID PANEL (CARDIAC RISK) 20200224 Comprehensive Metabolic Profile (CMP) 20200224 PT-INR 20200224 Next Appt Details 4M, BW 1W prior and INR in 3D Reason: Provider Name:Yvonne Rubi, 2019-02 04:00:00 PM, [address] [place], [address], Insurance Providers Payer Name Payer Address Payer Phone Insured Name Patient Relati onship to Insured Coverage Start Date Coverage End Date [facility] [id number] [facility] [id number] JUDY FIELDS self
--- OUTSIDE RECORDS SUMMARY | 2020-02-23 18:06 | CCD ---
Author Author [employer] [facility] Syst ems Organization [employer] [facility]st [employer] Address Unknown Phone Unavailable Care Team Providers Care Dough Scaler And Mixer Name Role Phone Trent Mari Unavailable PROBLEMS Type Condition ICD9-CM Code SLQ05-BB Code Onset Dates Condition S tatus SNOMED Code Notes Problem Recurrent deep venous thrombosis I82.409 Active 792259396 Problem GERD (gastroesophageal reflux disease) K21.9 A ctive 712339816 Problem ED (erectile dysfunction) N52.9 Active 050272 002 Problem History of pulmonary embolus (PE) Z86.711 Active 893179221 Problem PATRICK (obstructive sleep apnea) G47.33 Active 78 871003 Problem Encounter for therapeutic drug monitoring Z51.81 Active 511854754 Problem Vitamin D deficiency, unspecified E55.9 Active 45860984 Problem DJD (degenerative joint disease), cervical M50.30 Active 81290963 Problem DJD (degenerative joint disease), lumbar M47.816 Active 694760054 Problem Impingement syndrome, shoulder, left M75.42 Act adamaris 344739891 Problem Insomnia G47.00 Active 335383812 Problem Colon cancer screening Z12.11 Active 745488543 Problem CKD (chronic kidney disease) stage 2, GFR 60-89 ml/min N18.2 Active 552125323 Problem terminal clerk (current) use of anticoagulants Z79.01 Active 129157220 Problem Diabetes mellitus with complication E11.8 Acti ve 327701041 Problem Impingement syndrome of right shoulder M75.41 A ctive 374898611 Problem 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 A60.02 Active 03837112 Problem Elevated PSA R97.2 Active 957318588 Problem Concern about STD in male without diagnosis Z71.1 Active 977213277 Problem [place] disease E80.4 Active 13241664 Problem Mixed hyperlipidemia E78.2 Active 148583838 Problem Prostate cancer screening Z12.5 Active 400635 001 Problem Plantar fasciitis M72.2 Active 413817987 Problem Erythrocytosis D75.1 Active 287247210 Problem Factor 5 Leiden mutation, heterozygous D68.51 A ctive 284613374 ALLERGIES Allergen (clinical drug ingredient) Drug/Non Drug Allergy do cumented on EMR Reaction Allergy Type Onset Date Status morphine N/V Non Drug Allergy Active atorvastatin Lipitor([facility] Code:[address]-59) Myalgia Drug Allergy Active ENCOUNTERS from 1964 to 2019-11-25 Encounter Location Date Provider Diagnosis [address] [place] [address] 27 Apr, 2 020 Trent Mari Subacute maxillary sinusitis J01.00 ; Acute prostatitis N41.0 ; Diabetes mellitus with complication E11.8 ; Erythrocytosis D75.1 ; Prostate cancer screening Z12.5 ; PATRICK (obstructive sleep apnea) G47.33 ; Encounter for therapeutic drug monitoring Z51.81 ; Recurrent deep venous thrombosis I82.409 ; Plantar fasciitis M72.2 ; penitentiary (current) use of anticoagulants Z79.01 ; Impingement syndrome of right shoulder M75.41 ; Impingement syndrome, shoulder, left M75.42 ; DJD (degenerative joint disease), cervical M50.30 ; Vitamin D deficiency, unspecified E55.9 ; Colon cancer screening Z12.11 ; History of pulmonary embolus (PE) Z86.711 ; DJD (degenerative joint disease), lumbar M47.816 ; Insomnia G47.00 ; ED (erectile dysfunction) N52.9 ; [place] disease E80.4 ; Mixed hyperlipidemia E78.2 ; [...] Education Language: Question Answer Notes Languages spoken: Mohawk Mormonism: Question Answer Notes Mormonism No gnosticist beliefs that would impact health care. Sexual [...] FOR REFERRAL No Information VITAL SIGNS Weight 227.8 lbs Apr, Height 69 in Apr, BMI 33.64 kg/m2 Apr, Heart Rate 98 /min Apr, Respiratory Rate 20 /min Apr, Temperature 97.8 degrees Fahrenheit Apr, Oximetry 98% Apr, Blood pressure systolic 122 mm Hg Apr, Blood pressure diastolic 80 mm Hg Apr, MEDICATIONS Medication SIG (Take, Route, Frequency, Duration) Start Date En d Date Status Ergocalciferol 22761 UNIT 1 capsule Orally every 7 days [...] a day for 90 da y(s) Active [employer] an [employer] [place] - 1 reader for 2 weeks topically [...] Days June, Active PROCEDURES No Information RESULTS REASON FOR VISIT acute MEDICAL (GENERAL) HISTORY Type Description Date Medical History postoperative extensive righ t lower extremity DVT of femoral system and proximal pulmonary artery right lower lobe PE from cervical ACDF September 2009-status post TPA thrombolysis of DVT at [facility]- negative hypercoaguablilty workup December 2009 except heterozygote [...] History cervical DJD status post ACD F [id number]-djptcq CT cervical spine September 2010 Medical History 10/2012-R partial Achilles te ndon rupture-treated c equilizer boot c heel lift-Carlos Naidu Medical History Gilbert's disease Surgical History C6/C7 ACDF-Dr. Hernandez September 18, 2009 Surgical History L acromioplasty, clavicle excision-Sette r 09/2015 Surgical History colon-sigmoid losis, poor prep-Reindl 2017 Hospitalization History none Hospitalization History [facility] ED-Pneumonia 05/12/2018 Goals Section No Information Health Concerns No Information MEDICAL EQUIPMENT No Information MENTAL STATUS No Information FUNCTIONAL STATUS No Information ASSESSMENTS Encounter Date Diagnosis Notes Apr, Impingement syndrome of right shoulder ( ICD-10 - M75.41) Apr, penitentiary (current) use of anticoagulant s (ICD-10 - Z79.01) Apr, DJD (degenerative joint disease), cervic al (ICD-10 - M50.30) Apr, Impingement syndrome, shoulder, left (IC D-10 - M75.42) Apr, Encounter for therapeutic drug monitorin g (ICD-10 - Z51.81) Apr, PATRICK (obstructive sleep apnea) (ICD-10 - G47.33) Apr, Plantar fasciitis (ICD-10 - M72.2) Apr, Recurrent deep venous thrombosis (ICD-10 - I82.409) Apr, Colon cancer screening (ICD-10 - Z12.11) Apr, Vitamin D deficiency, unspecified (ICD-1 0 - E55.9) Apr, GERD (gastroesophageal reflux disease) ( ICD-10 - K21.9) Apr, Mixed hyperlipidemia (ICD-10 - E78.2) Apr, Acute prostatitis (ICD-10 - N41.0) Apr, Factor 5 Leiden mutation, heterozygous ( ICD-10 - D68.51) Apr, Subacute maxillary sinusitis (ICD-10 - J 01.00) Apr, CKD (chronic kidney disease) stage 2, GFR 60-89 ml/min (ICD-10 - N18.2) Apr, Insomnia (ICD-10 - G47.00) Apr, DJD (degenerative joint disease), lumbar (ICD-10 - M47.816) Apr, [place] disease (ICD-10 - E80.4) Apr, ED (erectile dysfunction) (ICD-10 - N52. 9) Apr, Erythrocytosis (ICD-10 - D75.1) Apr, Diabetes mellitus with complication (ICD -10 - E11.8) Apr, Elevated PSA (ICD-10 - R97.2) Apr, Prostate cancer screening (ICD-10 - Z12. 5) Apr, History of pulmonary embolus (PE) (ICD-1 0 [...] 1 tablet Orally Once a day Ergocalciferol 97673 UNIT 1 capsule Orally every 7 days for 90 d ay(s) CPAP Machine as directed _ Daily for 999 days Valtrex 1 GM 1 tablet Orally bid for 10 day(s) Nov, Levofloxacin 500 MG 1 tablet Orally Once a day for 14 days 2019 Treatment Notes Assessment Notes Clinical Notes History of pulmonary embolus (PE) rx as per recurrent DVT Subacute maxillary sinusitis 05/04 + levo as per prostatitis04/20 5D persistent sx (Centor 4); therefore, amox 500 TID 10D, holding VKA x 1D; c improvement, but not resolution of ST c intermittent OD otalgia s FC Colon cancer screening repeat colon 06/27 20 2 06/2017 colon c inadequate prep- 09/10/16 established c Reindl, patient cancelled colonoscopy 2 patient consents to screening colonoscopy-no previous colonoscopy; therefore, referred to R Acute prostatitis no previous ho c inability to ejaculate x ~2W c 05/01 PSA to 4.4 and CASS cw prostatitis; therefore, levo 500 14D c repeat INR in 3D (05/01 2.1) Insomnia Stable on when carlos faustin eszop 3 QHS Diabetes mellitus with complication Enco uraged ADA diet, weight lossContingency: glim, met at maximally tolerated doseBP cannot tolerate ACEI/ARB04/2019 7.6 (ins 78)12/2018 7. referred to TI/gave HO for dietary rx/CBH max 20-30 gm qmeal/1200 K QD-never heard back per patient; therefore, 11/2018 referred back02/2018 8.3; therefore, + dulag 1.5 q7D c + aerobic exercise 15 QD11/2017 8.2; therefore, increased met XR 750 QD to BID, but severe diarrhea, therefore, decreased back to QD04/2017 8.0; therefore, readded metformin XR 750 qAC exsuec97/2017 B12 818 s supplement04/2019 806/2018 6510 773 738/2013 161/2010 MINDA/creatinine 37 DJD (degenerative joint disease), lumbar 04/2015 started home PT-gave HO-flare 2 overuse shoveling 4W prior Erythrocytosis chronic, mildfavor 2 PATRICK/previous PE04/2019 30%, 3096712/2018 16.2, 94, 5.2/162 r37/2.4, EPO 294/2014 hgb 16.8 [place] disease No h/o heptatis/fabiola dice1 1.2 c direct 0. normal LFTs x t blil 1. 1.0 c direct 0. t bili 1.3 Prostate cancer screening father c PSA d etected PC at 4.4-but dx/CASS cw prostatitis (sp levo 14D)07/2018 [...] Continu e lifeling Coumadin goal INR 2- 311/2016 hgb stable 17.7, 91Contingency: DOACContinue right above the knee compression stocking 20-30 mmHg.Also follows with Dr[address] Quezada Mixed hyperlipidemia 04/2019 114// 2018 68/43/55293/2018 87/39/203, 96, 1.011/2017 89/57/182, 79 on rosuva 40, eziet 106/2017 non 128, 37, 509, CRP 0.4 but ate HIGH CBH meal qhs priorLFTs as per Josh' 0.7, 1.03/2018 0.7, 0. 0. 0. TSH 0.7 CKD (chronic kidney disease) stage 2, GFR 60-89 ml/min 12/2019 30/1.2, 4. 16/1.0, 4.611/2016 21/1.0, 4. stable at [...] syndrome, shoulder, left Sta ble sp surgery-Setter Next Appt Details Reason: Insurance Providers Payer Name Payer Address Payer Phone Insured Name Patient Relati onship to Insured Coverage Start Date Coverage End Date [facility] [address] [facility] [address] [phone] JUDY FIELDS self
--- OUTSIDE RECORDS SUMMARY | 2020-02-23 18:06 | CCD ---
Author Author [employer] [facility] Syst ems Organization [employer] Address Unknown Phone Unavailable Care Team Providers Care Hand Ii Cutter Name Role Phone Trent Mari Unavailable PROBLEMS Type Condition ICD9-CM Code QEU42-AS Code Onset Dates Condition S tatus SNOMED Code Notes Problem Recurrent deep venous thrombosis I82.409 Active 843761108 Problem GERD (gastroesophageal reflux disease) K21.9 A ctive 590827264 Problem ED (erectile dysfunction) N52.9 Active 008828 002 Problem History of pulmonary embolus (PE) Z86.711 Active 991936770 Problem PATRICK (obstructive sleep apnea) G47.33 Active 78 428347 Problem Encounter for therapeutic drug monitoring Z51.81 Active 511564517 Problem Vitamin D deficiency, unspecified E55.9 Active 99950592 Problem DJD (degenerative joint disease), cervical M50.30 Active 12703095 Problem DJD (degenerative joint disease), lumbar M47.816 Active 238539330 Problem Impingement syndrome, shoulder, left M75.42 Act adamaris 021041998 Problem Insomnia G47.00 Active 467707981 Problem Colon cancer screening Z12.11 Active 188145236 Problem CKD (chronic kidney disease) stage 2, GFR 60-89 ml/min N18.2 Active 328153885 Problem [facility] (current) use of anticoagulants Z79.01 Active 484082462 Problem Diabetes mellitus with complication E11.8 Acti ve 162186052 Problem Impingement syndrome of right shoulder M75.41 A ctive 150966961 Problem 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 A60.02 Active 08478291 Problem Elevated PSA R97.2 Active 169448148 Problem Concern about STD in male without diagnosis Z71.1 Active 549850823 Problem [place] disease E80.4 Active 46630585 Problem Mixed hyperlipidemia E78.2 Active 831857248 Problem Prostate cancer screening Z12.5 Active 124874 001 Problem Plantar fasciitis M72.2 Active 529747683 Problem Erythrocytosis D75.1 Active 953865566 Problem Factor 5 Leiden mutation, heterozygous D68.51 A ctive 079846027 ALLERGIES Allergen (clinical drug ingredient) Drug/Non Drug Allergy do cumented on EMR Reaction Allergy Type Onset Date Status morphine N/V Non Drug Allergy Active atorvastatin Lipitor([facility] Code:[address]-20) Myalgia Drug Allergy Active ENCOUNTERS from 1964 to 2019-12-04 Encounter Location Date Provider Diagnosis [address] [address] Nov, 020 Trent Mari IMMUNIZATIONS Vaccine Route [...] Education Language: Question Answer Notes Languages spoken: Romansh Christian: Question Answer Notes Christian No jehovah's witness beliefs that would impact health care. Sexual [...] Start Date En d Date Status Ergocalciferol 20218 UNIT 1 capsule Orally every 7 days [...] for 90 da y(s) Active [employer] - 1 reader for 2 weeks topically [...] Information RESULTS No Results REASON FOR VISIT Anti viral meds MEDICAL (GENERAL) HISTORY Type Description Date Medical History postoperative extensive righ t lower extremity DVT of femoral system and proximal pulmonary artery right lower lobe PE from cervical ACDF September 2009-status post TPA thrombolysis of DVT at [facility]- negative hypercoaguablilty workup December 2009 [...] History cervical DJD status post ACD F [id number]-wgcxck CT cervical spine September 2010 Medical History 10/2012-R partial Achilles te ndon rupture-treated c equilizer boot c heel lift-Carlos Naidu Medical History Gilbert's disease Surgical History C6/C7 ACDF-Dr. Hernandez September 18, 2009 Surgical History L acromioplasty, clavicle excision-Sette r 09/2015 Surgical History colon-sigmoid losis, poor prep-Reindl 2017 Hospitalization History none Hospitalization History [facility] ED-Pneumonia 05/12/2018 Goals Section No Information [...] 1 tablet Orally Once a day Ergocalciferol 05149 UNIT 1 capsule Orally every 7 days for 90 d ay(s) CPAP Machine as directed _ Daily for 999 days Valtrex 1 GM 1 tablet Orally bid for 10 day(s) Nov, Levofloxacin 500 MG 1 tablet Orally Once a day for 14 days Oc 2019 Next Appt Details Provider Name:Yvonne Rubi, 2019-02 04:00:00 PM, [address] [place], [address], Insurance Providers Payer Name Payer Address Payer Phone Insured Name Patient Relati onship to Insured Coverage Start Date Coverage End Date [facility] [address] [facility] [address] JUDY FIELDS self
--- OUTSIDE RECORDS SUMMARY | 2020-02-23 18:06 | CCD ---
Author Author [facility] Organization [employer] [facility] Address Unknown Phone Unavailable Care Team Providers Care Computer Technology Teacher Name Role Phone Trent Mari Unavailable PROBLEMS Type Condition ICD9-CM Code [id number] Code Onset Dates Condition S tatus SNOMED Code Notes Problem Recurrent deep venous thrombosis I82.409 Active 184064532 Problem GERD (gastroesophageal reflux disease) K21.9 A ctive 260086291 Problem ED (erectile dysfunction) N52.9 Active 355749 002 Problem History of pulmonary embolus (PE) Z86.711 Active 781677935 Problem PATRICK (obstructive sleep apnea) G47.33 Active 78 479624 Problem Encounter for therapeutic drug monitoring Z51.81 Active 311727561 Problem Vitamin D deficiency, unspecified E55.9 Active 11413047 Problem DJD (degenerative joint disease), cervical M50.30 Active 69994092 Problem DJD (degenerative joint disease), lumbar M47.816 Active 575301011 Problem Impingement syndrome, shoulder, left M75.42 Act adamaris 176494470 Problem Insomnia G47.00 Active 080956271 Problem Colon cancer screening Z12.11 Active 183620798 Problem CKD (chronic kidney disease) stage 2, GFR 60-89 ml/min N18.2 Active 046658482 Problem skilled nursing (current) use of anticoagulants Z79.01 Active 987858560 Problem Diabetes mellitus with complication E11.8 Acti ve 918678600 Problem Impingement syndrome of right shoulder M75.41 A ctive 478876065 Problem 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 A60.02 Active 71409424 Problem Elevated PSA R97.2 Active 140610669 Problem Concern about STD in male without diagnosis Z71.1 Active 581123932 Problem [place]ock disease E80.4 Active 16111246 Problem Mixed hyperlipidemia E78.2 Active 089142429 Problem Prostate cancer screening Z12.5 Active 508931 001 Problem Plantar fasciitis M72.2 Active 213484859 Problem Erythrocytosis D75.1 Active 294616852 Problem Factor 5 Leiden mutation, heterozygous D68.51 A ctive 909995416 ALLERGIES Allergen (clinical drug ingredient) Drug/Non Drug Allergy do cumented on EMR Reaction Allergy Type Onset Date Status morphine N/V Non Drug Allergy Active atorvastatin Lipitor([facility] Code:[address]-71) Myalgia Drug Allergy Active ENCOUNTERS from 1965 to 2019-12-01 Encounter Location Date Provider Diagnosis [address] [address] Nov, 020 Trent Mari IMMUNIZATIONS Vaccine Route [...] Education Language: Question Answer Notes Languages spoken: Croatian Restoration: Question Answer Notes Restoration No congregational beliefs that would impact health care. Sexual [...] Start Date En d Date Status Ergocalciferol 35922 UNIT 1 capsule Orally every 7 days [...] for 90 da y(s) Active FreeStyle Jd [place] - 1 reader for 2 weeks topically [...] RESULTS No Results REASON FOR VISIT PT appt MEDICAL (GENERAL) HISTORY Type Description Date Medical History postoperative extensive righ t lower extremity DVT of femoral system and proximal pulmonary artery right lower lobe PE from cervical ACDF September 2009-status post TPA thrombolysis of DVT at [facility]- negative hypercoaguablilty workup December 2009 except [...] History cervical DJD status post ACD F Z3-U0-eyyogy CT cervical spine September 2010 Medical History 10/2012-R partial Achilles te ndon rupture-treated c equilizer boot c heel lift-Carlos Naidu Medical History Gilbert's disease Surgical History C6/C7 ACDF-Dr. Hernandez September 18, 2009 Surgical History L acromioplasty, clavicle excision-Sette r 09/2015 Surgical History colon-sigmoid losis, poor prep-Reindl 2017 Hospitalization History none Hospitalization History [facility] ED-Pneumonia 05/12/2018 Goals Section No Information [...] 1 tablet Orally Once a day Ergocalciferol 05015 UNIT 1 capsule Orally every 7 days for 90 d ay(s) CPAP Machine as directed _ Daily for 999 days Valtrex 1 GM 1 tablet Orally bid for 10 day(s) Nov, Levofloxacin 500 MG 1 tablet Orally Once a day for 14 days 2019 Next Appt Details Provider Name:Yvonne Rubi, 2019-02 04:00:00 PM, [address] [place], [address], Insurance Providers Payer Name Payer Address Payer Phone Insured Name Patient Relati onship to Insured Coverage Start Date Coverage End Date [facility] [id number] [facility] [phone] JUDY FIELDS self
--- OUTSIDE RECORDS SUMMARY | 2020-02-23 18:06 | CCD ---
Author Author [facility] Organization [facility] Address Unknown Phone Unavailable Care Team Providers Care Fire Prevention Officer Name Role Phone Yvonne Rubi Unavailable PROBLEMS Type Condition ICD9-CM Code IPV56-XX Code Onset Dates Condition S tatus SNOMED Code Notes Problem Recurrent deep venous thrombosis I82.409 Active 384684623 Problem GERD (gastroesophageal reflux disease) K21.9 A ctive 094544275 Problem ED (erectile dysfunction) N52.9 Active 338379 002 Problem History of pulmonary embolus (PE) Z86.711 Active 613710557 Problem PATRICK (obstructive sleep apnea) G47.33 Active 78 901532 Problem Encounter for therapeutic drug monitoring Z51.81 Active 345661758 Problem Vitamin D deficiency, unspecified E55.9 Active 80053897 Problem DJD (degenerative joint disease), cervical M50.30 Active 94803156 Problem DJD (degenerative joint disease), lumbar M47.816 Active 538742261 Problem Impingement syndrome, shoulder, left M75.42 Act adamaris 626050669 Problem Insomnia G47.00 Active 247011659 Problem Colon cancer screening Z12.11 Active 754457118 Problem CKD (chronic kidney disease) stage 2, GFR 60-89 ml/min N18.2 Active 944236136 Problem shelter (current) use of anticoagulants Z79.01 Active 211591631 Problem Diabetes mellitus with complication E11.8 Acti ve 909193438 Problem Impingement syndrome of right shoulder M75.41 A ctive 660587272 Problem 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 A60.02 Active 79205722 Problem Elevated PSA R97.2 Active 516551808 Problem Concern about STD in male without diagnosis Z71.1 Active 427831880 Problem [place] disease E80.4 Active 56837775 Problem Mixed hyperlipidemia E78.2 Active 491387940 Problem Prostate cancer screening Z12.5 Active 080214 001 Problem Plantar fasciitis M72.2 Active 640258836 Problem Erythrocytosis D75.1 Active 879562788 Problem Factor 5 Leiden mutation, heterozygous D68.51 A ctive 295746365 ALLERGIES Allergen (clinical drug ingredient) Drug/Non Drug Allergy do cumented on EMR Reaction Allergy Type Onset Date Status morphine N/V Non Drug Allergy Active atorvastatin Lipitor([facility] Code:[address]-85) Myalgia Drug Allergy Active ENCOUNTERS from 1965 to 2019-12-21 Encounter Location Date Provider Diagnosis [address] [address] Dec, Yvonne Rubi Encounter for therapeutic drug monitorin g Z51.81 ; Recurrent deep venous thrombosis I82.409 and forge operator helper (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 Sexual [...] Dec, BMI 33.96 kg/m2 Dec, Heart Rate 88 /min Dec, Respiratory Rate 16 /min Dec, Temperature 98 degrees Fahrenheit Dec, Oximetry 99% Dec, Blood pressure systolic 120 mm Hg Dec, Blood pressure diastolic 74 mm Hg Dec, MEDICATIONS Medication SIG (Take, Route, Frequency, Duration) Start Date En d Date Status CPAP Machine as directed _ Daily for 999 days Active CPAP mask as directed QHS for 90 days Active Dulaglutide 1.5 MG/0.5ML as directed Subcutaneous every 7 days f or day(s) Active Nexium 40 mg 1 tablet Orally Once a day for 90 day(s) Active MetFORMIN HCl ER 750 MG 1 tab Orally AC dinner for 90 day(s) Active Eszopiclone 3 MG 1 tab Orally at bedtime prn insomnia for 30 day(s) Active Levofloxacin 500 MG 1 tablet Orally Once a day for 14 days Nov, Active FreeStyle Jd Sensor System - 1 sensor topically Daily for 28 Active Coumadin 6 MG 1 tablet Orally Once a day for 90 Active FreeStyle Jd [place] - 1 reader for 2 weeks topically Raphael y for 14 day(s) Jan, Active Viagra 100 MG 1 tablet as needed Orally Once a day prn ED for 30 da y(s) Active Invokana 300 1 tablet before first meal Orally Once a day for 90 da y(s) Active Ezetimibe 10 MG 1 tablet Orally Once a day for 90 day(s) Active Ergocalciferol 23555 UNIT 1 capsule Orally every 7 days for 90 day( s) Active Sildenafil Citrate 100 MG 1 tablet as needed Orally Once a d ay for 30 Days June, Active Valtrex 1 GM 1 tablet Orally bid for 10 day(s) Nov, Active Tizanidine HCl 2 MG 1 capsule as needed Orally T hree times a day prn pain for 90 day(s) Active Rosuvastatin Calcium 40 MG 1 tablet Orally Once a day for 90 day(s) Active PROCEDURES No Information RESULTS No Results REASON FOR VISIT 2 wk PT check MEDICAL (GENERAL) HISTORY Type Description Date Medical History postoperative extensive righ t lower extremity DVT of femoral system and proximal pulmonary artery right lower lobe PE from cervical ACDF September 2009-status post TPA thrombolysis of DVT at [facility]- negative hypercoaguablilty workup December 2009 except heterozygote [...] History cervical DJD status post ACD F L3-W7-eafncg CT cervical spine September 2010 Medical History 10/2012-R partial Achilles te ndon rupture-treated c equilizer boot c heel lift-Carlos Naidu Medical History Gilbert's disease Surgical History C6/C7 ACDF-Dr. Hernandez September 18, 2009 Surgical History L acromioplasty, clavicle excision-Sette r 09/2015 Surgical History colon-sigmoid losis, poor prep-Reindl 2017 Hospitalization History none Hospitalization History [facility] ED-Pneumonia 05/12/2018 Goals Section No Information Health Concerns No Information MEDICAL EQUIPMENT No Information MENTAL STATUS No Information FUNCTIONAL STATUS No Information ASSESSMENTS Encounter Date Diagnosis Notes Dec, Recurrent deep venous thrombosis (ICD-10 - I82.409) Dec, Encounter for therapeutic drug monitorin g (ICD-10 - Z51.81) Dec, forge operator helper (current) use of anticoagulant s (ICD-10 - Z79.01) PLAN OF TREATMENT Medication Medication Name Sig Start Date Stop Date FreeStyle Jd Sensor System - 1 sensor topically Daily for 28 Future Test Test Name Order Date PT-INR Fingerstick [id number] Next Appt Details 1 Week PT/INR check Reason: Provider Name:Yvonne Rubi 2019-02 04:00:00 PM, [address] [place], [address], Insurance Providers Payer Name Payer Address Payer Phone Insured Name Patient Relati onship to Insured Coverage Start Date Coverage End Date [facility] [address] [facility] [phone] JUDY FIELDS self
--- OUTSIDE RECORDS SUMMARY | 2020-02-23 18:06 | CCD ---
Author Author [facility] Syst ems Organization [facility] Address Unknown Phone Unavailable Care Team Providers Care Pallet Rectifier Name Role Phone Marychuy Manzanares Unavailable PROBLEMS Type Condition ICD9-CM Code VKS10-KH Code Onset Dates Condition S tatus SNOMED Code Notes Problem Recurrent deep venous thrombosis I82.409 Active 390022174 Problem GERD (gastroesophageal reflux disease) K21.9 A ctive 993893507 Problem ED (erectile dysfunction) N52.9 Active 976767 002 Problem History of pulmonary embolus (PE) Z86.711 Active 563724878 Problem PATRICK (obstructive sleep apnea) G47.33 Active 62 885005 Problem Encounter for therapeutic drug monitoring Z51.81 Active 049597218 Problem Vitamin D deficiency, unspecified E55.9 Active 61076049 Problem DJD (degenerative joint disease), cervical M50.30 Active 64098490 Problem DJD (degenerative joint disease), lumbar M47.816 Active 727850996 Problem Impingement syndrome, shoulder, left M75.42 Act adamaris 427135681 Problem Insomnia G47.00 Active 107992381 Problem Colon cancer screening Z12.11 Active 378991867 Problem CKD (chronic kidney disease) stage 2, GFR 60-89 ml/min N18.2 Active 363127031 Problem 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 Z79.01 Active 523673098 Problem Diabetes mellitus with complication E11.8 Acti ve 445459162 Problem Impingement syndrome of right shoulder M75.41 A ctive 247828326 Problem 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 A60.02 Active 96678767 Problem Elevated PSA R97.2 Active 537087852 Problem Concern about STD in male without diagnosis Z71.1 Active 109832397 Problem [place]rall disease E80.4 Active 61261967 Problem Mixed hyperlipidemia E78.2 Active 816963394 Problem Prostate cancer screening Z12.5 Active 349140 001 Problem Plantar fasciitis M72.2 Active 032544722 Problem Erythrocytosis D75.1 Active 020170110 Problem Factor 5 Leiden mutation, heterozygous D68.51 A ctive 546783995 ALLERGIES Allergen (clinical drug ingredient) Drug/Non Drug Allergy do cumented on EMR Reaction Allergy Type Onset Date Status morphine N/V Non Drug Allergy Active atorvastatin Lipitor([facility] Code:[address]-17) Myalgia Drug Allergy Active ENCOUNTERS from 1964 to 2019-12-21 Encounter Location Date Provider Diagnosis [address] [address] Aug, Marychuy Manzanares Encounter for therapeutic drug monitorin g Z51.81 and Recurrent deep venous thrombosis I82.409 IMMUNIZATIONS Vaccine Route Administration Date Status Pneumococcal [...] Education Language: Question Answer Notes Languages spoken: Maltese Mormonism: Question Answer Notes Mormonism No christian beliefs that would impact health care. Sexual [...] FOR REFERRAL No Information VITAL SIGNS Weight 222 lbs Aug, Height 69 in Aug, BMI 32.78 kg/m2 Aug, Heart Rate 88 /min Aug, Respiratory Rate 20 /min Aug, Temperature 97.6 degrees Fahrenheit Aug, Oximetry 96 Aug, Blood pressure systolic 110 mm Hg Aug, Blood pressure diastolic 80 mm Hg Aug, MEDICATIONS Medication SIG (Take, Route, Frequency, Duration) Start Date En d Date Status CPAP Machine as directed _ Daily for 999 days Active CPAP mask as directed QHS for 90 days Active Dulaglutide 1.5 MG/0.5ML as directed Subcutaneous every 7 days f or 90 day(s) Active Nexium 40 mg 1 [...] a day for 90 Active FreeStyle Jd [place] - 1 reader for 2 weeks topically Raphael y for 14 day(s) Jan, Active Viagra 100 MG 1 tablet as needed Orally Once a day prn ED for 30 da y(s) Active Invokana 300 1 tablet before first meal Orally Once a day for 90 da y(s) Active Ezetimibe 10 MG 1 tablet Orally Once a day for 90 day(s) Active Ergocalciferol 62653 UNIT 1 capsule Orally every 7 days [...] 90 day(s) Active PROCEDURES No Information RESULTS Component Value Reference Range PT-INR Fingerstick Reviewed date:11/16/2019 16:58:35 Interpretation: Performing Lab:[facility] [place] [address] INR 2.9 Verified Patient's Name and DW Current Dose 1 6mg daily Current Dose 2 Tab Strength 6mg Indication for Anticoagulation DVT Recent Bleeding no Internal QC Acceptable (Y/N) 2-3 Therapeutic Range Education Given (Date / Initials) New Dose 1 6mg daily New Dose 2 Weekly Total Next PT-INR 2 weeks - - REASON FOR VISIT INR, PT/INR done MEDICAL (GENERAL) HISTORY Type Description Date Medical History postoperative extensive righ t lower extremity DVT of femoral system and proximal pulmonary artery right lower lobe PE from cervical ACDF September 2009-status post TPA thrombolysis of DVT at [facility]- negative hypercoaguablilty workup December 2009 except [...] History cervical DJD status post ACD F T5-A7-xivxry CT cervical spine September 2010 Medical History 10/2012-R partial Achilles te ndon rupture-treated c equilizer boot c heel lift-Carlos Naidu Medical History Gilbert's disease Surgical History C6/C7 ACDF-Dr. Hernandez September 18, 2009 Surgical History L acromioplasty, clavicle excision-Sette r 09/2015 Surgical History colon-sigmoid losis, poor prep-Reindl 2017 Hospitalization History none Hospitalization History [facility] ED-Pneumonia 05/12/2018 Goals Section No Information Health Concerns No Information MEDICAL EQUIPMENT No Information MENTAL STATUS No Information FUNCTIONAL STATUS No Information ASSESSMENTS Encounter Date Diagnosis Notes Aug, Recurrent deep venous thrombosis (ICD-10 - I82.409) Aug, Encounter for therapeutic drug monitorin g (ICD-10 - Z51.81) PLAN OF TREATMENT Medication Medication Name Sig Start Date Stop Date FreeStyle Jd Sensor System - 1 sensor topically Daily for 28 Treatment Notes Assessment Notes Clinical Notes Encounter for therapeutic drug monitoring patient never recieved 5mg tablets from pharmacy so he continued mg daily, he will continue same dose of warfarin, and repeat INR in 2 weeks. report any bleeding issues. Maintain stable dietary intake of vitamin K-containing foods Next Appt Details 2 Weeks Reason: Provider Name:Yvonne Rubi, 2020-02-20 04:00:00 PM, [address] [place], [address], Insurance Providers Payer Name Payer Address Payer Phone Insured Name Patient Relati onship to Insured Coverage Start Date Coverage End Date [facility] [place] [address] [facility] [phone] JUDY FIELDS self
--- OUTSIDE RECORDS SUMMARY | 2020-02-23 18:06 | CCD ---
Author Author [facility] [employer] [facility] Syst ems Organization [facility] [employer]st ems Address Unknown Phone Unavailable Care Team Providers Care Bulk Intake Worker Name Role Phone Janina Hernandez Unavailable PROBLEMS Type Condition ICD9-CM Code AHP97-VC Code Onset Dates Condition S tatus SNOMED Code Notes Problem Recurrent deep venous thrombosis I82.409 Active 769145932 Problem GERD (gastroesophageal reflux disease) K21.9 A ctive 149781598 Problem ED (erectile dysfunction) N52.9 Active 497723 002 Problem History of pulmonary embolus (PE) Z86.711 Active 283202552 Problem PATRICK (obstructive sleep apnea) G47.33 Active 78 084616 Problem Encounter for therapeutic drug monitoring Z51.81 Active 206095725 Problem Vitamin D deficiency, unspecified E55.9 Active 30526005 Problem DJD (degenerative joint disease), cervical M50.30 Active 41758306 Problem DJD (degenerative joint disease), lumbar M47.816 Active 121590212 Problem Impingement syndrome, shoulder, left M75.42 Act adamaris 439485243 Problem Insomnia G47.00 Active 431289166 Problem Colon cancer screening Z12.11 Active 318602786 Problem CKD (chronic kidney disease) stage 2, GFR 60-89 ml/min N18.2 Active 576361479 Problem 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.01 Active 096869591 Problem Diabetes mellitus with complication E11.8 Acti ve 554986003 Problem Impingement syndrome of right shoulder M75.41 A ctive 019007561 Problem 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 A60.02 Active 36938748 Problem Elevated PSA R97.2 Active 984499314 Problem Concern about STD in male without diagnosis Z71.1 Active 848609616 Problem [place] disease E80.4 Active 43744956 Problem Mixed hyperlipidemia E78.2 Active 280227244 Problem Prostate cancer screening Z12.5 Active 157896 001 Problem Plantar fasciitis M72.2 Active 689371157 Problem Erythrocytosis D75.1 Active 942058818 Problem Factor 5 Leiden mutation, heterozygous D68.51 A ctive 261996452 ALLERGIES Allergen (clinical drug ingredient) Drug/Non Drug Allergy do cumented on EMR Reaction Allergy Type Onset Date Status morphine N/V Non Drug Allergy Active atorvastatin Lipitor([facility] Code:[address]-46) Myalgia Drug Allergy Active ENCOUNTERS from 1964 to 2019-11-27 Encounter Location Date Provider Diagnosis [address] [address] Aug, Janina Hernandez Encounter for therapeutic drug monitorin g Z51.81 ; Recurrent deep venous thrombosis I82.409 ; Factor 5 Leiden mutation, heterozygous D68.51 ; DJD (degenerative joint disease), cervical M50.30 ; Vitamin D deficiency, unspecified E55.9 ; Diabetes mellitus with complication E11.8 ; Mixed hyperlipidemia E78.2 ; GERD (gastroesophageal reflux disease) K21.9 and ED (erectile dysfunction) N52.9 IMMUNIZATIONS Vaccine Route Administration Date Status Influenza [...] Education Language: Question Answer Notes Languages spoken: Dominican Episcopalian: Question Answer Notes Episcopalian No zoroastrian beliefs that would impact health care. Sexual [...] No Information VITAL SIGNS Weight 227.8 lbs Aug, Height 69 in Aug, BMI 33.64 kg/m2 Aug, Heart Rate 84 /min Aug, Respiratory Rate 17 /min Aug, Temperature 98.1 degrees Fahrenheit Aug, Oximetry 96% RA Aug, Blood pressure systolic 104 mm Hg Aug, Blood pressure diastolic 68 mm Hg Aug, MEDICATIONS Medication SIG (Take, Route, Frequency, Duration) Start Date En d Date Status Ergocalciferol 30194 UNIT 1 capsule Orally every 7 days for 90 day( s) Active [place] SocialStyle Jd Sensor System - 2 sensor topically [...] a day for 90 da y(s) Active [employer] Jd [place] - 1 reader for 2 weeks topically [...] Component Value Reference Range PT-INR Fingerstick Reviewed date:08/18/2019 09:46:41 Interpretation: Performing Lab:[facility] [place] [address] INR 3.4 Verified Patient's Name and VM Current Dose 1 6mg daily Current Dose 2 Tab Strength 6mg Indication for Anticoagulation DVT Recent Bleeding No Internal QC Acceptable (Y/N) 2-3 Therapeutic Range Education Given (Date / Initials) New Dose 1 5mg MF New Dose 2 6mg ROW Weekly Total Next PT-INR 1Wc CM - - REASON FOR VISIT Pt/INR MEDICAL (GENERAL) HISTORY Type Description Date Medical History postoperative extensive righ t lower extremity DVT of femoral system and proximal pulmonary artery right lower lobe PE from cervical ACDF September 2009-status post TPA thrombolysis of DVT at [facility]- negative hypercoaguablilty workup December 2009 except heterozygote [...] History cervical DJD status post ACD F B5-F3-rsvenv CT cervical spine September 2010 Medical History 10/2012-R partial Achilles te ndon rupture-treated c equilizer boot c heel lift-Carlos Naidu Medical History Gilbert's disease Surgical History C6/C7 ACDF-Dr. Hernandez September 18, 2009 Surgical History L acromioplasty, clavicle excision-Sette r 09/2015 Surgical History colon-sigmoid losis, poor prep-Reindl 2017 Hospitalization History none Hospitalization History [facility] ED-Pneumonia 05/12/2018 Goals Section No Information Health Concerns No Information MEDICAL EQUIPMENT No Information MENTAL STATUS No Information FUNCTIONAL STATUS No Information ASSESSMENTS Encounter Date Diagnosis Notes Aug, Recurrent deep venous thrombosis (ICD-10 - I82.409) Aug, Encounter for therapeutic drug monitorin g (ICD-10 - Z51.81) Aug, Mixed hyperlipidemia (ICD-10 - E78.2) Aug, Diabetes mellitus with complication (ICD -10 - E11.8) Aug, ED (erectile dysfunction) (ICD-10 - N52. 9) Aug, GERD (gastroesophageal reflux disease) ( ICD-10 - K21.9) Aug, DJD (degenerative joint disease), cervic al (ICD-10 - M50.30) Aug, Factor 5 Leiden mutation, heterozygous ( ICD-10 - D68.51) Aug, Vitamin D deficiency, unspecified (ICD-1 0 - E55.9) PLAN OF TREATMENT Medication Medication Name Sig [...] 1 tablet Orally Once a day Ergocalciferol 46644 UNIT 1 capsule Orally every 7 days for 90 d ay(s) CPAP Machine as directed _ Daily for 999 days Valtrex 1 GM 1 tablet Orally bid for 10 day(s) Nov, Levofloxacin 500 MG 1 tablet Orally Once a day for 14 days Oc 2019 Treatment Notes Assessment Notes Clinical Notes Recurrent deep venous thrombosis Suprath erapeutic INR 3.4, will decrease to 5mg M,W, cont. 6mg ROW, F/up 08/24 c CM Next Appt Details 08/25/2019 inr c CM Reason: Insurance Providers Payer Name Payer Address Payer Phone Insured Name Patient Relati onship to Insured Coverage Start Date Coverage End Date [facility] [address] [facility] [phone] JUDY FIELDS self
--- OUTSIDE RECORDS SUMMARY | 2020-02-23 18:07 | CCD ---
Author Author [facility] Organization [facility] Address Unknown Phone Unavailable Care Team Providers Care Etl Architect Name Role Phone Campdoronro Marnyasia Castrejon PA Unavailable Unavailable Campanaro, Mare Lucía PA Unavailable Unavailable Campanaro, Mare Lucía PA Unavailable Unavailable Campanaro, Mare Lucía PA Unavailable Unavailable Campanaro, Mare Lucía PA Unavailable Unavailable Campanaro, Mare Lucía PA Unavailable Unavailable Campanaro, Mare Lucía PA Unavailable Unavailable Campanaro, Mare Lucía PA Unavailable Unavailable Campanaro, Mare Lucía PA Unavailable Unavailable Campanaro, Mare Lucía PA Unavailable Unavailable Campanaro, Mare Lucía PA Unavailable Unavailable Campanaro, Mare Lucía PA Unavailable Unavailable Campanaro, Mare Lucía PA Unavailable Unavailable Campanaro, Mare Lucía PA Unavailable Unavailable Campanaro, Mare Lucía PA Unavailable Unavailable Campanaro, Mare Lucía PA Unavailable Unavailable Campanaro, Mare Lucía PA Unavailable Unavailable Campanaro, Mare Lucía PA Unavailable Unavailable Serge WOLF PA Unavailable Unavailable Serge WOLF PA Unavailable Unavailable Serge WOLF PA Unavailable Unavailable Serge WOLF PA Unavailable Unavailable Serge WOLF PA Unavailable Unavailable Serge WOLF PA Unavailable Unavailable Serge WOLF PA Unavailable Unavailable LETTIERE, A EMI PA Unavailable Unavailable LETTIERE, A EMI PA Unavailable Unavailable LETTIERE, A EMI PA Unavailable Unavailable LETTIERE, A EMI PA Unavailable Unavailable LETTIERE, A EMI PA Unavailable Unavailable LETTIERE, A EMI PA Unavailable Unavailable LETTIERE, A EMI PA Unavailable Unavailable LETTIERE, A EMI PA Unavailable Unavailable LETTIERE, A EMI PA Unavailable Unavailable LETTIERE, A EMI PA Unavailable Unavailable LETTIERE, A EMI PA Unavailable Unavailable LETTIERE, A EMI PA Unavailable Unavailable LETTIERE, A EMI PA Unavailable Unavailable LETTIERE, A EMI PA Unavailable Unavailable LETTIERE, A EMI PA Unavailable Unavailable LETTIERE, A EMI PA Unavailable Unavailable LETTIERE, A EMI PA Unavailable Unavailable LETTIERE, A EMI PA Unavailable Unavailable LETTIERE, A EMI PA Unavailable Unavailable LETTIERE, A EMI PA Unavailable Unavailable LETTIERE, A EMI PA Unavailable Unavailable LETTIERE, A EMI PA Unavailable Unavailable Re-disclosure Warning The records that you are about to access may contain information from federally-assisted alcohol or drug abuse programs. If such information is present, then the following federally mandated warning applies: This information has been disclosed to you from records protected by federal confidentiality rules (42 CFR part 2). The federal rules prohibit you from making any further disclosure of this information unless further disclosure is expressly permitted by the written consent of the person to whom it pertains or as otherwise permitted by 42 CFR part 2. A general authorization for the release of medical or other information is NOT sufficient for this purpose. The Federal rules restrict any use of the information to criminally investigate or prosecute any alcohol or drug abuse patient.The records that you are about to access may contain highly sensitive health information, the redisclosure of which is protected by Article 27-F of the [facility] Public Health law. If you continue you may have access to information: Regarding HIV / AIDS; Provided by facilities licensed or operated by the [facility] Office of Mental Health; or Provided by the [facility] Office for People With Developmental Disabilities. If such information is present, then the following [facility] mandated warning applies: This information has been disclosed to you from confidential records which are protected by state law. State law prohibits you from making any further disclosure of this information without the specific written consent of the person to whom it pertains, or as otherwise permitted by law. Any unauthorized further disclosure in violation of state law may result in a fine or shelter sentence or both. A general authorization for the release of medical or other information is NOT sufficient authorization for further disc losure. Allergies and Adverse Reactions Type Description Substance Reaction Status Data Source(s ) Drug allergy Lipitor atorvastatin Myalgia Active eCW1 ([facility]) morphine morphine Morphine Sulfate 15 MG Extended Release O ral Tablet N/V Active eCW1 ([facility]) morphine morphine Morphine Sulfate 15 MG Extended Release O ral Tablet N/V Active eCW1 ([facility]) morphine morphine Morphine Sulfate 15 MG Extended Release O ral Tablet N/V Active eCW1 ([facility]) morphine morphine Morphine Sulfate 15 MG Extended Release O ral Tablet N/V Active eCW1 ([facility]) morphine morphine Morphine Sulfate 15 MG Extended Release O ral Tablet N/V Active eCW1 ([facility]) morphine morphine Morphine Sulfate 15 MG Extended Release O ral Tablet N/V Active eCW1 ([facility]) morphine morphine Morphine Sulfate 15 MG Extended Release O ral Tablet N/V Active eCW1 ([facility]) Family History Family Member Name Family Member Gender Family Member Status Date o f Status Description Data Source(s) Unknown Unknown Problem MEDENT ([facility]) sister Unknown Unknown Problem MEDENT ([facility]) Encounters Encounter Providers Location Date Indications Data Source(s ) [place] [address] [facility] [address] 02/21/2020 12:00:00 AM EST eCW1 ([facility]ly [facility]) [place] [address] [facility] [place] [address] 02/13/2020 12:00:00 AM EST eCW1 ([facility]) [place] [address] [facility] [place] [address] 02/11/2020 12:00:00 AM EST eCW1 ([facility]) [place] [address] [facility] [place] [address] 02/05/2020 12:00:00 AM EST eCW1 ([facility]) [place] [address] [facility] [address] 02/05/2020 12:00:00 AM EST eCW1 ([facility]) [place] [address] [facility] [address] 01/29/2020 12:00:00 AM EST eCW1 ([facility]) [place] [address] [facility] [address] 01/26/2020 12:00:00 AM EST eCW1 ([facility]) [place] [address] [facility] [address] 12/22/2019 12:00:00 AM EST eCW1 ([facility]) [place] [address] [facility] [address] 12/15/2019 12:00:00 AM EST eCW1 ([facility]) [place] [address] [facility] [address] 12/04/2019 12:00:00 AM EDT eCW1 ([facility]) [place] [address] [facility] [address] 11/30/2019 12:00:00 AM EDT eCW1 ([facility]) [place] [address] [facility] [address] 11/30/2019 12:00:00 AM EDT eCW1 ([facility]) [place] [address] [facility] [address] 11/24/2019 12:00:00 AM EDT eCW1 ([facility]) Outpatient Attender: Lucía Baldwin Prim isi 11/21/2019 05:10:00 PM EDT MEDENT ([facility]) [place] [address] [facility] [address] 11/19/2019 12:00:00 AM EDT eCW1 ([facility]) Outpatient Attender: EMI Baldwin Prim isi 11/17/2019 02:10:00 PM EDT MEDENT ([facility]) [place] [address] [facility] [address] 11/16/2019 12:00:00 AM EDT eCW1 ([facility]) [place] [address] [facility] [address] 11/16/2019 12:00:00 AM EDT eCW1 ([facility]) [place] [address] [facility] [address] 11/15/2019 12:00:00 AM EDT eCW1 ([facility]) [place] [address] [facility] [address] 08/25/2019 12:00:00 AM EDT eCW1 ([facility]) [facility] [address] [facility] [address] 08/25/2019 12:00:00 AM EDT eCW1 ([facility]) [place] [address] [facility] [address] 08/18/2019 12:00:00 AM EDT eCW1 ([facility]) [place] [address] [facility] [address] 07/21/2019 12:00:00 AM EDT eCW1 ([facility]) [facility] [address] [facility] [address] 06/27/2019 12:00:00 AM EDT eCW1 ([facility]) [facility] [address] [facility] [address] 06/16/2019 12:00:00 AM EDT eCW1 ([facility]) [facility] [address] [facility] [address] 06/15/2019 12:00:00 AM EDT eCW1 ([facility]) [facility] [address] [facility] [address] 06/02/2019 12:00:00 AM EDT eCW1 ([facility]) [facility] [address] [facility] [address] 05/19/2019 12:00:00 AM EDT [facility]CW1 [facility] [address] [facility] [address] 05/19/2019 12:00:00 AM EDT eCW1 [facility] [address] [facility] [address] 05/18/2019 12:00:00 AM EDT eCW1 ([facility] [address] [facility] [address] 05/12/2019 12:00:00 AM EDT eCW1 [facility] [address] [facility] [address] 05/05/2019 12:00:00 AM EDT eCW1 ([facility] [address] [facility] [address] 05/02/2019 12:00:00 AM EDT eCW1 ([facility] [address] [facility] [address] 04/21/2019 12:00:00 AM EDT eCW1 ([facility] [address] [facility] [address] 03/22/2019 12:00:00 AM EST eCW1 ([facility]) [facility] [address] [place] [address], [place] [address] 02/22/2019 12:00:00 AM EST eCW1 ([facility]) [facility] [address] [place] [address], [place] [address] 01/25/2019 12:00:00 AM EST eCW1 ([facility] [address] [facility] [address] 01/23/2019 12:00:00 AM EST eCW1 ([facility]) Immunizations Vaccine Date Status Description Data Source(s) INFLUENZA VIRUS VACCINE QUADRIVAL (6 MOS AND UP)/PF 10/31/2019 12:00:00 AM EDT completed [facility] Medications Medication Brand Name Start Date Product Form Dose Route Admi nistrative Instructions Pharmacy Instructions Status Indications Reaction Description Data Source(s) valacyclovir 1000 MG Oral Tablet [Valtrex] Valtrex 1 GM Valt jimena 1 GM 02/13/2020 12:00:00 AM EST 1.0 {tablet} active Va ltrex 1 GM eCW1 ([facility]) valacyclovir 1000 MG Oral Tablet [Valtrex] Valtrex 1 GM Valt jimena 1 GM 02/13/2020 12:00:00 AM EST 1.0 {tablet} active Va ltrex 1 GM eCW1 ([facility]) Trulicity 3 MG/0.5ML Trulicity 3 MG/0.5ML 02/13/2020 12:00:00 AM EST active Trulicity 3 MG/0.5ML eCW1 ([facility]) Trulicity 3 MG/0.5ML Trulicity 3 MG/0.5ML 02/13/2020 12:00:00 AM EST active Trulicity 3 MG/0.5ML eCW1 ([facility]) Levofloxacin 500 MG Oral Tablet Levofloxacin 500 MG 11/24/2019 1 2:00:00 AM EDT 1.0 {tablet} active Levofloxaci n 500 MG eCW1 ([facility]) Levofloxacin 500 MG Oral Tablet Levofloxacin 500 MG 11/24/2019 1 2:00:00 AM EDT 1.0 {tablet} active Levofloxaci n 500 MG eCW1 ([facility]) valacyclovir 1000 MG Oral Tablet [Valtrex] Valtrex 1 GM Valt jimena 1 GM 11/24/2019 12:00:00 AM EDT 1.0 {tablet} active Va ltrex 1 GM eCW1 ([facility]) Levofloxacin 500 MG Oral Tablet Levofloxacin 500 MG 11/24/2019 1 2:00:00 AM EDT 1.0 {tablet} active Levofloxaci n 500 MG eCW1 ([facility]) Levofloxacin 500 MG Oral Tablet Levofloxacin 500 MG 11/24/2019 1 2:00:00 AM EDT 1.0 {tablet} active Levofloxaci n 500 MG eCW1 ([facility]) Levofloxacin 500 MG Oral Tablet Levofloxacin 500 MG 11/24/2019 1 2:00:00 AM EDT 1.0 {tablet} active Levofloxaci n 500 MG eCW1 ([facility]) Levofloxacin 500 MG Oral Tablet Levofloxacin 500 MG 11/24/2019 1 2:00:00 AM EDT 1.0 {tablet} active Levofloxaci n 500 MG eCW1 ([facility]) valacyclovir 1000 MG Oral Tablet [Valtrex] Valtrex 1 GM Valt jimena 1 GM 11/24/2019 12:00:00 AM EDT 1.0 {tablet} active Va ltrex 1 GM eCW1 ([facility]) valacyclovir 1000 MG Oral Tablet [Valtrex] Valtrex 1 GM Valt jimena 1 GM 11/24/2019 12:00:00 AM EDT 1.0 {tablet} active Va ltrex 1 GM eCW1 ([facility]) valacyclovir 1000 MG Oral Tablet [Valtrex] Valtrex 1 GM Valt jimena 1 GM 11/24/2019 12:00:00 AM EDT 1.0 {tablet} active Va ltrex 1 GM eCW1 ([facility]) Levofloxacin 500 MG Oral Tablet Levofloxacin 500 MG 11/24/2019 1 2:00:00 AM EDT 1.0 {tablet} active Levofloxaci n 500 MG eCW1 ([facility]) Levofloxacin 500 MG Oral Tablet Levofloxacin 500 MG 11/24/2019 1 2:00:00 AM EDT 1.0 {tablet} active Levofloxaci n 500 MG eCW1 ([facility]) valacyclovir 1000 MG Oral Tablet [Valtrex] Valtrex 1 GM Valt jimena 1 GM 11/24/2019 12:00:00 AM EDT 1.0 {tablet} active Va ltrex 1 GM eCW1 ([facility]) valacyclovir 1000 MG Oral Tablet [Valtrex] Valtrex 1 GM Valt jmiena 1 GM 11/24/2019 12:00:00 AM EDT 1.0 {tablet} active Va ltrex 1 GM eCW1 ([facility]) Levofloxacin 500 MG Oral Tablet Levofloxacin 500 MG 11/24/2019 1 2:00:00 AM EDT 1.0 {tablet} active Levofloxaci n 500 MG eCW1 ([facility]) Levofloxacin 500 MG Oral Tablet Levofloxacin 500 MG 11/24/2019 1 2:00:00 AM EDT 1.0 {tablet} active Levofloxaci n 500 MG eCW1 ([facility]) Levofloxacin 500 MG Oral Tablet Levofloxacin 500 MG 11/24/2019 1 2:00:00 AM EDT 1.0 {tablet} active Levofloxaci n 500 MG eCW1 ([facility]) valacyclovir 1000 MG Oral Tablet [Valtrex] Valtrex 1 GM Valt jimena 1 GM 11/24/2019 12:00:00 AM EDT 1.0 {tablet} active Va ltrex 1 GM eCW1 ([facility]) valacyclovir 1000 MG Oral Tablet [Valtrex] Valtrex 1 GM Valt jimena 1 GM 11/24/2019 12:00:00 AM EDT 1.0 {tablet} active Va ltrex 1 GM eCW1 ([facility]) valacyclovir 1000 MG Oral Tablet [Valtrex] Valtrex 1 GM Valt jimena 1 GM 11/24/2019 12:00:00 AM EDT 1.0 {tablet} active Va ltrex 1 GM eCW1 ([facility]) valacyclovir 1000 MG Oral Tablet [Valtrex] Valtrex 1 GM Valt jimena 1 GM 11/24/2019 12:00:00 AM EDT 1.0 {tablet} active Va ltrex 1 GM eCW1 ([facility]) Levofloxacin 500 MG Oral Tablet Levofloxacin 500 MG 11/24/2019 1 2:00:00 AM EDT 1.0 {tablet} active Levofloxaci n 500 MG eCW1 ([facility]) valacyclovir 1000 MG Oral Tablet [Valtrex] Valtrex 1 GM Valt jimena 1 GM 11/24/2019 12:00:00 AM EDT 1.0 {tablet} active Va ltrex 1 GM eCW1 ([facility]) valacyclovir 1000 MG Oral Tablet [Valtrex] Valtrex 1 GM Valt jimena 1 GM 11/24/2019 12:00:00 AM EDT 1.0 {tablet} active Va ltrex 1 GM eCW1 ([facility]) valacyclovir 1000 MG Oral Tablet [Valtrex] Valtrex 1 GM Valt jimena 1 GM 11/24/2019 12:00:00 AM EDT 1.0 {tablet} active Va ltrex 1 GM eCW1 ([facility]) Levofloxacin 500 MG Oral Tablet Levofloxacin 500 MG 11/24/2019 1 2:00:00 AM EDT 1.0 {tablet} active Levofloxaci n 500 MG eCW1 ([facility]) Levofloxacin 500 MG Oral Tablet Levofloxacin 500 MG 11/24/2019 1 2:00:00 AM EDT 1.0 {tablet} active Levofloxaci n 500 MG eCW1 ([facility]) valacyclovir 1000 MG Oral Tablet [Valtrex] Valtrex 1 GM Valt jimena 1 GM 11/24/2019 12:00:00 AM EDT 1.0 {tablet} active Va ltrex 1 GM eCW1 ([facility]) Phenazopyridine hydrochloride 200 MG Delayed Release O ral Tablet Phenazopyridine HCL 11/17/2019 12:00:00 AM EDT ORAL completed MEDENT ([facility]) . UNIT 10/31/2019 12:00:00 AM EDT Injectable 1 AD MIN FEE ADMIN FEE SOLD: 11/02/2019 [facility] sildenafil 100 MG Oral Tablet Sildenafil Citrate 100 M G Sildenafil Citrate 100 MG 06/16/2019 12:00:00 AM EDT 1.0 {tablet_as_needed} active Sildenafil Citrate 100 MG eCW1 ([facility]) sildenafil 100 MG Oral Tablet Sildenafil Citrate 100 M G Sildenafil Citrate 100 MG 06/16/2019 12:00:00 AM EDT 1.0 {tablet_as_needed} active Sildenafil Citrate 100 MG eCW1 ([facility]) sildenafil 100 MG Oral Tablet Sildenafil Citrate 100 M G Sildenafil Citrate 100 MG 06/16/2019 12:00:00 AM EDT 1.0 {tablet_as_needed} active Sildenafil Citrate 100 MG eCW1 ([facility]) sildenafil 100 MG Oral Tablet Sildenafil Citrate 100 M G Sildenafil Citrate 100 MG 06/16/2019 12:00:00 AM EDT 1.0 {tablet_as_needed} active Sildenafil Citrate 100 MG eCW1 ([facility]) sildenafil 100 MG Oral Tablet Sildenafil Citrate 100 M G Sildenafil Citrate 100 MG 06/16/2019 12:00:00 AM EDT 1.0 {tablet_as_needed} active Sildenafil Citrate 100 MG eCW1 ([facility]) sildenafil 100 MG Oral Tablet Sildenafil Citrate 100 M G Sildenafil Citrate 100 MG 06/16/2019 12:00:00 AM EDT 1.0 {tablet_as_needed} active Sildenafil Citrate 100 MG eCW1 ([facility]) sildenafil 100 MG Oral Tablet Sildenafil Citrate 100 M G Sildenafil Citrate 100 MG 06/16/2019 12:00:00 AM EDT 1.0 {tablet_as_needed} active Sildenafil Citrate 100 MG eCW1 ([facility]) sildenafil 100 MG Oral Tablet Sildenafil Citrate 100 M G Sildenafil Citrate 100 MG 06/16/2019 12:00:00 AM EDT 1.0 {tablet_as_needed} active Sildenafil Citrate 100 MG eCW1 ([facility]) sildenafil 100 MG Oral Tablet Sildenafil Citrate 100 M G Sildenafil Citrate 100 MG 06/16/2019 12:00:00 AM EDT 1.0 {tablet_as_needed} active Sildenafil Citrate 100 MG eCW1 ([facility]) sildenafil 100 MG Oral Tablet Sildenafil Citrate 100 M G Sildenafil Citrate 100 MG 06/16/2019 12:00:00 AM EDT 1.0 {tablet_as_needed} active Sildenafil Citrate 100 MG eCW1 ([facility]) sildenafil 100 MG Oral Tablet Sildenafil Citrate 100 M G Sildenafil Citrate 100 MG 06/16/2019 12:00:00 AM EDT 1.0 {tablet_as_needed} active Sildenafil Citrate 100 MG eCW1 ([facility]) sildenafil 100 MG Oral Tablet Sildenafil Citrate 100 M G Sildenafil Citrate 100 MG 06/16/2019 12:00:00 AM EDT 1.0 {tablet_as_needed} active Sildenafil Citrate 100 MG eCW1 ([facility]) sildenafil 100 MG Oral Tablet Sildenafil Citrate 100 M G Sildenafil Citrate 100 MG 06/16/2019 12:00:00 AM EDT 1.0 {tablet_as_needed} active Sildenafil Citrate 100 MG eCW1 ([facility]) sildenafil 100 MG Oral Tablet Sildenafil Citrate 100 M G Sildenafil Citrate 100 MG 06/16/2019 12:00:00 AM EDT 1.0 {tablet_as_needed} active Sildenafil Citrate 100 MG eCW1 ([facility]) sildenafil 100 MG Oral Tablet Sildenafil Citrate 100 M G Sildenafil Citrate 100 MG 06/16/2019 12:00:00 AM EDT 1.0 {tablet_as_needed} active Sildenafil Citrate 100 MG eCW1 ([facility]) sildenafil 100 MG Oral Tablet Sildenafil Citrate 100 M G Sildenafil Citrate 100 MG 06/16/2019 12:00:00 AM EDT 1.0 {tablet_as_needed} active Sildenafil Citrate 100 MG eCW1 ([facility]) sildenafil 100 MG Oral Tablet Sildenafil Citrate 100 M G Sildenafil Citrate 100 MG 06/16/2019 12:00:00 AM EDT 1.0 {tablet_as_needed} active Sildenafil Citrate 100 MG eCW1 ([facility]) sildenafil 100 MG Oral Tablet Sildenafil Citrate 100 M G Sildenafil Citrate 100 MG 06/16/2019 12:00:00 AM EDT 1.0 {tablet_as_needed} active Sildenafil Citrate 100 MG eCW1 ([facility]) sildenafil 100 MG Oral Tablet Sildenafil Citrate 100 M G Sildenafil Citrate 100 MG 06/16/2019 12:00:00 AM EDT 1.0 {tablet_as_needed} active Sildenafil Citrate 100 MG eCW1 ([facility]) sildenafil 100 MG Oral Tablet Sildenafil Citrate 100 M G Sildenafil Citrate 100 MG 06/16/2019 12:00:00 AM EDT 1.0 {tablet_as_needed} active Sildenafil Citrate 100 MG eCW1 ([facility]) sildenafil 100 MG Oral Tablet Sildenafil Citrate 100 M G Sildenafil Citrate 100 MG 06/16/2019 12:00:00 AM EDT active 1 tablet as needed eCW1 ([facility]) sildenafil 100 MG Oral Tablet Sildenafil Citrate 100 M G Sildenafil Citrate 100 MG 06/16/2019 12:00:00 AM EDT 1.0 {tablet_as_needed} active Sildenafil Citrate 100 MG eCW1 ([facility]) Azithromycin 250 MG Oral Tablet Azithromycin 250 MG 05/18/2019 1 2:00:00 AM EDT active as directed eCW1 ([facility]) Azithromycin 250 MG Oral Tablet Azithromycin 250 MG 05/18/2019 1 2:00:00 AM EDT active as directed eCW1 ([facility]) Azithromycin 250 MG Oral Tablet Azithromycin 250 MG 05/18/2019 1 2:00:00 AM EDT active as directed eCW1 ([facility]) Levofloxacin 500 MG Oral Tablet Levofloxacin 500 MG 05/05/2019 1 2:00:00 AM EDT active 1 tablet eCW1 ([facility]) Levofloxacin 500 MG Oral Tablet Levofloxacin 500 MG 05/05/2019 1 2:00:00 AM EDT active 1 tablet eCW1 ([facility]) Levofloxacin 500 MG Oral Tablet Levofloxacin 500 MG 05/05/2019 1 2:00:00 AM EDT active 1 tablet eCW1 ([facility]) Amoxicillin 500 MG Oral Capsule Amoxicillin 500 MG 04/21/2019 12:00 :00 AM EDT active 1 capsule eCW1 ([facility]) [employer] J[employer]ensor System - [employer]Style Jd Sensor Syste m - 01/25/2019 12:00:00 AM EST active 1 sensor eCW1 ([facility]) [employer] J[employer] Sensor System - [employer]Style Jd Sensor Syste m - 01/25/2019 12:00:00 AM EST active 1 sensor eCW1 ([facility]) [employer] [place] - [employer] [place] [place] - 01/25/2019 12:00: 00 AM EST active [employer] [place] [place] - eCW1 ([facility]) [employer] [place] [place] - [employer] [place] [place] - 01/25/2019 12:00: 00 AM EST active [employer] [place] [place] - eCW1 ([facility]) [employer] Jd Sensor System - FreeStyle Jd Sensor Syste m - 01/25/2019 12:00:00 AM EST active [employer]Styl e [employer]ensor System - eCW1 ([facility]) [employer] [place] [place] - [employer] [place] [place] - 01/25/2019 12:00: 00 AM EST active 1 reader for 2 weeks eCW 1 ([facility]) [employer] J[employer] Sensor System - [employer]Style Jd Sensor Syste m - 01/25/2019 12:00:00 AM EST active 1 sensor eCW1 ([facility]) [employer] J[employer] Sensor System - FreeStyle Jd Sensor Syste m - 01/25/2019 12:00:00 AM EST active [employer]ensor System - eCW1 ([facility]) [employer]Style Jd Sensor System - FreeStyle Jd Sensor Syste m - 01/25/2019 12:00:00 AM EST active [employer] e [employer] Sensor System - eCW1 ([facility]) [employer] Jd Sensor System - FreeStyle Jd Sensor Syste m - 01/25/2019 12:00:00 AM EST active [employer]l e [employer] Sensor System - eCW1 ([facility]) [employer] [place] [place] - [employer] [place] [place] - 01/25/2019 12:00: 00 AM EST active [employer] [place] [place] - eCW1 ([facility]) [employer] [place] [place] - [employer] [place] [place] - 01/25/2019 12:00: 00 AM EST active [employer] [place] [place] - eCW1 ([facility]) [employer] [place] [place] - [employer] [place] [place] - 01/25/2019 12:00: 00 AM EST active [employer] [place] [place] - eCW1 ([facility]) [employer] [place] [place] - [employer] [place] [place] - 01/25/2019 12:00: 00 AM EST active [employer] [place] [place] - eCW1 ([facility]) [employer] [place] [place] - [employer] [place] [place] - 01/25/2019 12:00: 00 AM EST active [employer] [place] [place] - eCW1 ([facility]) [employer] [place] [place] - [employer] [place] - 01/25/2019 12:00: 00 AM EST active [employer] [place] [place] - eCW1 ([facility]) [employer] Jd Sensor System - FreeStyle Jd Sensor Syste m - 01/25/2019 12:00:00 AM EST active 2 sensor eCW1 ([facility]) [employer] [place] [place] [employer] [place] [place] - 01/25/2019 12:00: 00 AM EST active [employer] [place] [place] - eCW1 ([facility]) [employer] [place] [place] - [employer] [place] [place] - 01/25/2019 12:00: 00 AM EST active [employer] [place] [place] - eCW1 ([facility]) [employer] [place] [place] - [employer] [place] [place] - 01/25/2019 12:00: 00 AM EST active 1 reader for 2 weeks eCW 1 ([facility]) [employer] System - [employer] J[employer] Sensor Syste m - 01/25/2019 12:00:00 AM EST active [employer] - eCW1 ([facility]) [employer] System - [employer] J[employer] Sensor Syste m - 01/25/2019 12:00:00 AM EST active [employer] S[employer] System - eCW1 ([facility]) [employer] [place] [place] - [employer] [place] [place] - 01/25/2019 12:00: 00 AM EST active [employer] [place] - eCW1 ([facility]) [employer] System - [employer] J[employer] Sensor Syste m - 01/25/2019 12:00:00 AM EST active [employer] System - eCW1 ([facility]) [employer] [place] [place] - [employer] [place] [place] - 01/25/2019 12:00: 00 AM EST active [employer] [place] - eCW1 ([facility]) [employer] - [employer] J[employer] Sensor Syste m - 01/25/2019 12:00:00 AM EST active 1 sensor eCW1 ([facility]) [employer] [place] [place] - [employer] [place] [place] - 01/25/2019 12:00: 00 AM EST active 1 reader for 2 weeks eCW 1 ([facility]) [employer] System - [employer] J[employer] Sensor Syste m - 01/25/2019 12:00:00 AM EST active 1 sensor eCW1 ([facility]) [employer] [place] [place] - [employer] [place] [place] - 01/25/2019 12:00: 00 AM EST active [employer] [place] - eCW1 ([facility]) [employer] System - [employer] Jd Sensor Syste m - 01/25/2019 12:00:00 AM EST active 2 sensor eCW1 ([facility]) [employer] [place] [place] - [employer] [place] [place] - 01/25/2019 12:00: 00 AM EST active 1 reader for 2 weeks eCW 1 ([facility]) [employer] [place] [place] - [employer] [place] [place] - 01/25/2019 12:00: 00 AM EST active [employer] [place] - eCW1 ([facility]) [employer] [place] [place] - [employer] [place] [place] - 01/25/2019 12:00: 00 AM EST active [employer] [place] - eCW1 ([facility]) [employer] Sensor System - FreeStyle Jd Sensor Syste m - 01/25/2019 12:00:00 AM EST active [employer]Styl e J[employer] Sensor System - eCW1 ([facility]) [employer] Sensor System - [employer] Jd Sensor Syste m - 01/25/2019 12:00:00 AM EST active 1 sensor eCW1 ([facility]) [employer] [place] - [employer] [place] [place] - 01/25/2019 12:00: 00 AM EST active [employer] [place] - eCW1 ([facility]) [employer] [place] [place] - [employer] [place] [place] - 01/25/2019 12:00: 00 AM EST active [employer] [place] - eCW1 ([facility]) [employer] [place] [place] - [employer] [place] [place] - 01/25/2019 12:00: 00 AM EST active [employer] [place] - eCW1 ([facility]) [employer] [place] [place] - [employer] [place] [place] - 01/25/2019 12:00: 00 AM EST active [employer] [place] - eCW1 ([facility]) [employer] [place] [place] - [employer] [place] [place] - 01/25/2019 12:00: 00 AM EST active 1 reader for 2 weeks eCW 1 ([facility]) [employer] [place] [place] - [employer] [place] [place] - 01/25/2019 12:00: 00 AM EST active 1 reader for 2 weeks eCW 1 ([facility]) [employer] Sensor System - FreeStyle Jd Sensor Syste m - 01/25/2019 12:00:00 AM EST active [employer]Styl e Jd Sensor System - eCW1 ([facility]) [employer] Sensor System - FreeStyle Jd Sensor Syste m - 01/25/2019 12:00:00 AM EST active [employer]Sty[employer] e Jd Sensor System - eCW1 ([facility]) [employer] [place] - [employer] [place] [place] - 01/25/2019 12:00: 00 AM EST active [employer] [place] - eCW1 ([facility]) [employer] S[employer] System - FreeStyle Jd Sensor Syste m - 01/25/2019 12:00:00 AM EST active [employer]Styl e Jd Sensor System - eCW1 ([facility]) [employer] Sensor System - FreeStyle Jd Sensor Syste m - 01/25/2019 12:00:00 AM EST active 1 sensor eCW1 ([facility]) [employer] [place] - [employer] [place] [place] - 01/25/2019 12:00: 00 AM EST active 1 reader for 2 weeks eCW 1 ([facility]) [employer] [place] [place] - [employer] [place] [place] - 01/25/2019 12:00: 00 AM EST active [employer] [place] [place] - eCW1 ([facility]) Insurance Providers Payer name Policy type / Coverage type Policy ID Covered constitution party ID Covered constitution party's relationship to wharton Policy Wharton Plan Information R [facility] [id number] ANSI-Commercial [id number] ANSI-Commercial [id number] ANSI-Commercial [id number] ANSI-Commercial [id number] ANSI-Commercial [id number]-a4x7-3g3h-[id number] ANSI-Commercial [id number] ANSI-Commercial [id number]-[id number]-[id number] ANSI-Commercial [id number] ANSI-Commercial [id number] ANSI-Commercial [id number]-6j6h-[id number] [id number]-so97-14bl-[id number]-[id number] ANSI-Commercial [id number] ANSI-Commercial [id number]-10r9-t79c-[id number] 0loifh57-14zj-51m9-j79m-[id number] ANSI-Commercial [id number]-[id number]-[id number]-l0ic-[id number] ANSI-Commercial [id number]-d782-27e2-[id number] ANSI-Commercial [id number]-[id number] ANSI-Commercial [id number]-s0e9-9eheky8dde80 nnsx4s10-9567-92bx-r2m6-4qlpfn3imv82 ANSI-Commercial [id number] [id number]-9635-j2d6t7s6z226 ANSI-Commercial [id number] [facility] [id number] SP [id number] ANSI-Commercial [id number]-3269-[id number] ANSI-Commercial [id number]-jq69-8y54-2660-pmo1xg9hi071 ANSI-Commercial 3y2jy328-10e4-1img-0287-w781n2822p6q [id number]-1429-u838v5332w2j ANSI-Commercial [id number]-a73y-483o-37qf-[id number] [id number]-c45t-349z-02ut-n228877d8631 ANSI-Commercial 1fo4chk8-25g2-67t1-87s1-o46qe420485q 8zo8vgd0-76k5-76f5-62h0-j97fn017510j ANSI-Commercial l4sp8379-d94u-67a8-2865-41w1td0rk4w2 c5mm0669-z94d-08u2-7487-27k0nb6hb9m7 ANSI-Commercial a4o688y2-3178-8z95-tm88-1p2m7yo0z405 g9g433g0-3478-1x00-dh52-5t1l0bi4l905 ANSI-Commercial 982709n7-j121-9d7q-3h3w-12u7jw7386mo 164656j9-v161-7x7k-3q3x-30z1jw2831gc ANSI-Commercial 2rg3i8e5-37fr-2u9m-3a27-8fo3i311us24 9fp5z6k4-10on-2s0d-3d27-1eo9t881gw59 ANSI-Commercial 1773m399-u1l7-2r3w-1072-4wg39yp2098x 2529o176-y9u5-9m2x-5800-1nr18qo5456f ANSI-Commercial i08zw05s-3e40-8kv9-v7y5-9se0g2a00r6y x53wl38d-9j59-7uo5-n8e6-9ly9n0i29c8k ANSI-Commercial 685i4652-fxjb-5172-fkvi-n08gki682rmd 047v2311-qjxx-1642-thbp-m25cqc588aor ANSI-Commercial 2r0mph53-8487-89v3-2122-r67871l6s8x7 3t3hkt02-8334-42k9-9221-b78409p0a9c5 ANSI-Commercial 31323a0v-235t-6aeg-5d9y-7m37mk04497p 40187o4c-246k-1fxh-3w6f-6w98wu58581z ANSI-Commercial 59v1g682-a9qd-6160-gfgl-h841e6j6ntx7 37x2o486-f0sg-2829-hcrs-t293a6h6kxz2 ANSI-Commercial e62zo048-9i8f-3873-0176-aa853213p76v r03td218-1c5l-4108-9044-oe970602s70l ANSI-Commercial 4ys9l396-2982-777h-c18m-585bg8732w4u 0nk9t649-4816-508m-s29q-759ck8294h9q ANSI-Commercial 20252jr2-t2s0-5i41-4grc-eu0776916g7w 56801bt3-c6m7-3z42-6enz-rm9070641o3p ANSI-Commercial r01im91a-13z1-4002-o146-d0m0146270fs w53pe20r-76k3-7284-y749-e3y6579934nc ANSI-Commercial hvn9pe1i-8m72-6342-8v76-h2624nsnd882 tas8oz2u-2v40-2005-1n93-n3047adlm389 ANSI-Commercial z917i194-3921-1xs3-6775-69p546537k88 i040x442-7238-6yy8-5157-38y995813a06 ANSI-Commercial 3v882555-9rc3-1875-wfqu-si0432e6290x 1c271590-0jq0-9061-jizb-ix1320z6755q ANSI-Commercial d134u756-f01o-946j-n943-5w7p8pwr600o h951k097-w38o-757k-g748-5z6o0xfz405l ANSI-Commercial 9545418l-w6v7-1t41-aq14-1gj561h72x29 9741739b-n7j8-2z78-yf98-5kl151b59s34 ANSI-Commercial 4984o628-pcfd-84j9-h37r-a07p469k42m4 8095t767-puzv-02h1-u67f-x25s518z19p7 ANSI-Commercial h0i68808-9l5q-358w-d4ov-29mxc6y9rw58 p9w18125-8e5s-693y-u5xv-11tpu5f6us07 ANSI-Commercial e6w4858a-603p-0335-0e8k-06ra591v42qp u7b0380i-717l-3009-5l7v-46vm454m99ik ANSI-Commercial ew303e76-6547-4k64-1zt8-628085l5yo6u bs561g91-8470-2b29-1bb2-054322r5bi3x Umr/[facility] (O) [id number] Self [id number] ANSI-Commercial [id number] [id number]8i4ugee82r5 ANSI-Commercial 5kg029bs-9952-32ya-r5ad-0732l264n9q4 9hw920rt-2745-85kp-v2cm-0421d260x9x7 LOVE CLAIM ADMIN WORK COMP [id number] ANSI-Commercial 625l8q40-m51u-8u58-839a-8a8i017xh862 905m3b01-m79a-1q54-056v-5z3c478wr055 ANSI-Commercial 20jz4938-pq9l-2r2d-n400-43n544rbd077 55pm7544-xj7k-3w4x-v816-05l249aco435 UMR U [id number] Self [id number] SPECIAL FUNDS [facility] [id number] Empl [id number] UMR U [id number] Self [id number] [employer] U [id number] Self [id number] [employer] [id number] SP [id number] [employer] (H[employer]) [id number] Se lf [id number] [employer] [id number] Self [id number] [employer] [id number] Self [id number] [employer] ([employer]) [id number] Se lf [id number] [employer] [id number] SP [id number] [employer] COMM SELF [id number] S [id number] [employer] PPO O [id number] S [id number] [employer] COMM SELF [id number] S [id number] [employer] [id number] SP [id number] [employer] [id number] SP [id number] [employer] [id number] SP [id number] [employer] WC [id number] S [id number] [employer] [id number] SP [id number] Problems, Conditions, and Diagnoses Code Display Name Description Problem Type Effective Dates Data Source(s) A60.02 44270538 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 Problem 11/24/2019 12: 00:00 AM EDT eCW1 ([facility]) Z71.1 [id number] Concern about STD in male without diagnos is Problem 11/20/2019 12:00:00 AM EDT eCW1 ([facility]) D68.51 [id number] Factor 5 Leiden mutation, heterozygous Pr oblem 05/05/2019 12:00:00 AM EDT eCW1 ([facility]) D68.51 [id number] Factor 5 Leiden mutation, heterozygous Pr oblem 05/05/2019 12:00:00 AM EDT eCW1 ([facility]) D75.1 [id number] Erythrocytosis Problem 04/21/2019 12:00:00 A M EDT eCW1 ([facility]) D75.1 [id number] Erythrocytosis Problem 04/21/2019 12:00:00 A M EDT eCW1 ([facility]) Surgeries/Procedures Procedure Description Date Indications Data Source(s) PROTHROMBIN TIME 06/16/2019 12:00:00 AM EDT eCW1 ([facility]) Results ID Date Data Source [id number] 02/19/2020 12:30:00 PM EST [facility] Name Value Range Interpretation Code Description Data Melissa rce(s) Supporting Document(s) SARS coronavirus 2 RNA Detected [facility] This lab was ordered by [facility] and reported by [facility]. ID Date Data Source HSV 1/2 BY PCR 11/30/2019 03:29:17 AM EDT eCW1 ([facility]) Name Value Range Interpretation Code Description Data Melissa rce(s) Supporting Document(s) Negative HSV-1 DNA eCW1 ([facility]) Positive HSV-2 DNA eCW1 ([facility]) ID Date Data Source CBC with Differential 11/21/2019 08:04:01 AM EDT eCW1 ([facility]) Name Value Range Interpretation Code Description Data Melissa rce(s) Supporting Document(s) 5.13 eCW1 ([facility]) 4.9 eCW1 ([facility]) 16.0 eCW1 ([facility]) 47.0 eCW1 ([facility]) 31.2 eCW1 ([facility]) 91.6 eCW1 ([facility]) 34.0 eCW1 ([facility]) 12.3 eCW1 ([facility]) 12.5 eCW1 ([facility]) 124 eCW1 ([facility]) 68.5 eCW1 ([facility]) 0.8 eCW1 ([facility]) 15.0 eCW1 ([facility]) 2.8 eCW1 ([facility]) 3.4 eCW1 ([facility]) 0.7 eCW1 ([facility]) 0.6 eCW1 ([facility]) 0.0 eCW1 ([facility]) 0.1 eCW1 ([facility]) ID Date Data Source [id number] 11/21/2019 08:03:56 AM EDT eCW1 ([facility]) Name Value Range Interpretation Code Description Data Melissa rce(s) Supporting Document(s) eCW1 ([facility]) ID Date Data Source [id number] 11/21/2019 08:03:50 AM EDT eCW1 ([facility]) Name Value Range Interpretation Code Description Data Melissa rce(s) Supporting Document(s) Hemoglobin A1c/Hemoglobin.total in Blood 8.0 eCW1 ([facility]) ID Date Data Source HEPATITIS C ANTIBODY INDEX 11/21/2019 08:03:46 AM EDT eCW1 ( [facility]) Name Value Range Interpretation Code Description Data Melissa rce(s) Supporting Document(s) 0.1 eCW1 ([facility]) ID Date Data Source Comprehensive Metabolic Profile (CMP) 11/21/2019 08:03:43 AM EDT eCW1 ([facility]) Name Value Range Interpretation Code Description Data Melissa rce(s) Supporting Document(s) 127 eCW1 ([facility]) 139 eCW1 ([facility]) 1.12 eCW1 ([facility]) 18 eCW1 ([facility]) > 60.0 eCW1 ([facility]) 105 eCW1 ([facility]) 9.1 eCW1 ([facility]) 30 eCW1 ([facility]) 4.7 eCW1 ([facility]) 103 eCW1 ([facility]) 41 eCW1 ([facility]) 25 eCW1 ([facility]) 1.1 eCW1 ([facility]) 1.3 eCW1 ([facility]) 6.8 eCW1 ([facility]) 3.8 eCW1 ([facility]) ID Date Data Source PSA SCREENING 11/21/2019 08:03:37 AM EDT eCW1 ([facility]) Name Value Range Interpretation Code Description Data Melissa rce(s) Supporting Document(s) 1.82 eCW1 ([facility]) ID Date Data Source SYPHILIS ANTIBODY (RPR SCREEN) 11/21/2019 08:03:34 AM EDT eC W1 ([facility]) Name Value Range Interpretation Code Description Data Melissa rce(s) Supporting Document(s) NONREACTIVE eCW1 ([facility]) ID Date Data Source HEPATITIS B SURFACE ANTIGEN 11/21/2019 08:03:31 AM EDT eCW1 ([facility]) Name Value Range Interpretation Code Description Data Melissa rce(s) Supporting Document(s) NEGATIVE eCW1 ([facility]) ID Date Data Source [id number] 11/17/2019 02:00:00 PM EDT MEDENT ([facility]) Name Value Range Interpretation Code Description Data Melissa rce(s) Supporting Document(s) Bacteria identified in Urine by Culture Laboratory test result MEDENT ([facility], [facility]) FULL REPORT IN LAB NOTES (eCW and [facility] ). NO GROWTH ID Date Data Source PT-INR Fingerstick 11/16/2019 05:58:35 AM EDT eCW1 ([facility]) Name Value Range Interpretation Code Description Data Melissa rce(s) Supporting Document(s) 2.9 INR eCW1 ([facility]) DW Verified Patient's Name and DO B eCW1 ([facility]) 6mg daily Current Dose 1 eCW1 ([facility]) Current Dose 2 eCW1 ([facility]) 2-3 Internal QC Acceptable (Y/N) e CW1 ([facility]) no Recent Bleeding eCW1 ([facility]) DVT Indication for Anticoagulation eCW1 ([facility]) 6mg Tab Strength eCW1 ([facility]) Education Given (Date / Initia ls) eCW1 ([facility]) Therapeutic Range eCW1 ([facility]) 6mg daily New Dose 1 eCW1 ([facility]) New Dose 2 eCW1 ([facility]) - eCW1 ([facility]) 2 weeks Next PT-INR eCW1 ([facility]) Weekly Total eCW1 ([facility]) ID Date Data Source [id number] 06/13/2019 12:55:00 PM EDT [facility] Name Value Range Interpretation Code Description Data Melissa rce(s) Supporting Document(s) SARS CORONAVIRUS 2 RNA [facility] This lab was ordered by [facility] and reported by [facility]. ID Date Data Source PT & APTT 05/08/2019 04:24:03 AM EDT eCW1 ([facility]) Name Value Range Interpretation Code Description Data Melissa rce(s) Supporting Document(s) 2.30 INR eCW1 ([facility]) 25.1 PROTHROMBIN TIME eCW1 ([facility]) 38.7 PARTIAL THROMBOPLASTIN TIME eC W1 ([facility]) Procedure Social History Code Duration Value Status Description Data Source(s ) Smoking 02/13/2020 12:00:00 AM EST Never Smoker completed Never S moker eCW1 ([facility]) Smoking 02/13/2020 12:00:00 AM EST Never Smoker completed Never S moker eCW1 ([facility]) Smoking 12/22/2019 12:00:00 AM EST Never Smoker completed Never S moker eCW1 ([facility]) Smoking 12/22/2019 12:00:00 AM EST Never Smoker completed Never S moker eCW1 ([facility]) Smoking 12/22/2019 12:00:00 AM EST Never Smoker completed Never S moker eCW1 ([facility]) Smoking 12/22/2019 12:00:00 AM EST Never Smoker completed Never S moker eCW1 ([facility]) Smoking 12/22/2019 12:00:00 AM EST Never Smoker completed Never S moker eCW1 ([facility]) Smoking 12/22/2019 12:00:00 AM EST Never Smoker completed Never S moker eCW1 ([facility]) Smoking 12/15/2019 12:00:00 AM EST Never Smoker completed Never S moker eCW1 ([facility]) Smoking 12/15/2019 12:00:00 AM EST Never Smoker completed Never S moker eCW1 ([facility]) Smoking 11/24/2019 12:00:00 AM EDT Never Smoker completed Never S moker eCW1 ([facility]) Smoking 11/24/2019 12:00:00 AM EDT Never Smoker completed Never S moker eCW1 ([facility]) Smoking 11/24/2019 12:00:00 AM EDT Never Smoker completed Never S moker eCW1 ([facility]) Smoking 11/24/2019 12:00:00 AM EDT Never Smoker completed Never S moker eCW1 ([facility]) Smoking 11/24/2019 12:00:00 AM EDT Never Smoker completed Never S moker eCW1 ([facility]) Smoking 11/24/2019 12:00:00 AM EDT Never Smoker completed Never S moker eCW1 ([facility]) Smoking 11/21/2019 12:00:00 AM EDT Patient has never smoked co mpleted Patient has never smoked MEDENT ([facility], [facility]) Smoking 08/25/2019 12:00:00 AM EDT Never Smoker completed Never S moker eCW1 ([facility]) Smoking 08/25/2019 12:00:00 AM EDT Never Smoker completed Never S moker eCW1 ([facility]) Smoking 08/25/2019 12:00:00 AM EDT Never Smoker completed Never S moker eCW1 ([facility]) Smoking 08/25/2019 12:00:00 AM EDT Never Smoker completed Never S moker eCW1 ([facility]) Smoking 07/21/2019 12:00:00 AM EDT Never Smoker completed Never S moker eCW1 ([facility]) Vital Signs ID Date Data Source UNK Name Value Range Interpretation Code Description Data Source(s) Diastolic blood pressure 72 mm[Hg] 72 mm[Hg] eCW1 ([facility]) Systolic blood pressure 124 mm[Hg] 124 mm[Hg] e CW1 ([facility]) Body temperature 98.1 [degF] 98.1 [degF] eCW1 ( [facility]) Respiratory rate 18 /min 18 /min eCW1 ([facility]) Heart rate 108 /min 108 /min eCW1 ([facility]) Body mass index (BMI) [Ratio] 34.61 kg/m2 34.61 kg/m2 eCW1 ([facility]) Body height 69 [in_i] 69 [in_i] eCW1 ([facility]) Body weight 234.4 [lb_av] 234.4 [lb_av] eCW1 ([facility]) Diastolic blood pressure 78 mm[Hg] 78 mm[Hg] eCW1 ([facility]) Systolic blood pressure 124 mm[Hg] 124 mm[Hg] e CW1 ([facility]) Body temperature 98 [degF] 98 [degF] eCW1 ([facility]) Respiratory rate 18 /min 18 /min eCW1 ([facility]) Heart rate 87 /min 87 /min eCW1 ([facility]) Body mass index (BMI) [Ratio] 33.96 kg/m2 33.96 kg/m2 eCW1 ([facility]) Body height 69 [in_i] 69 [in_i] eCW1 ([facility]) Body weight 230 [lb_av] 230 [lb_av] eCW1 ([facility]) Diastolic blood pressure 74 mm[Hg] 74 mm[Hg] eCW1 ([facility]) Systolic blood pressure 120 mm[Hg] 120 mm[Hg] e CW1 ([facility]) Body temperature 98 [degF] 98 [degF] eCW1 ([facility]) Respiratory rate 16 /min 16 /min eCW1 ([facility]) Heart rate 88 /min 88 /min eCW1 ([facility]) Body mass index (BMI) [Ratio] 33.96 kg/m2 33.96 kg/m2 eCW1 ([facility]) Body height 69 [in_i] 69 [in_i] eCW1 ([facility]) Body weight 230 [lb_av] 230 [lb_av] eCW1 ([facility]) Diastolic blood pressure 72 mm[Hg] 72 mm[Hg] eCW1 ([facility]) Systolic blood pressure 112 mm[Hg] 112 mm[Hg] e CW1 ([facility]) Body temperature 97.5 [degF] 97.5 [degF] eCW1 ( [facility]) Respiratory rate 18 /min 18 /min eCW1 ([facility]) Heart rate 99 /min 99 /min eCW1 ([facility]) Body mass index (BMI) [Ratio] 33.08 kg/m2 33.08 kg/m2 eCW1 ([facility]) Body height 69 [in_i] 69 [in_i] eCW1 ([facility]) Body weight 224.0 [lb_av] 224.0 [lb_av] eCW1 ([facility]) Systolic blood pressure 116 mm[Hg] 116 mm[Hg] M EDENT ([facility]) Body mass index (BMI) [Ratio] 33.4 kg/m2 33.4 k g/m2 MEDENT ([facility]) Body height 68 [in_i] 68 [in_i] MEDENT ([facility]) 5'8" Body weight 220.00 [lb_av] 220.00 [lb_av] MEDEN T ([facility]) Body temperature 98.3 [degF] 98.3 [degF] MEDENT ([facility]) Oxygen saturation in Arterial blood by Pulse oximetry 97 % 97 % MEDENT ([facility], [facility]) Respiratory rate 14 /min 14 /min MEDENT ( [facility]) Heart rate 111 /min 111 /min MEDENT ([facility], [facility]) Diastolic blood pressure 82 mm[Hg] 82 mm[Hg] MEDENT ([facility], [facility]) Body mass index (BMI) [Ratio] 34.5 kg/m2 34.5 k g/m2 MEDENT ([facility], [facility]) Body height 67 [in_i] 67 [in_i] MEDENT ([facility], [facility]) 5'7" Body weight 220.00 [lb_av] 220.00 [lb_av] MEDEN T ([facility], [facility]) Body temperature 98.1 [degF] 98.1 [degF] MEDENT ([facility], [facility]) Oxygen saturation in Arterial blood by Pulse oximetry 98 % 98 % MEDENT ([facility], [facility]) Respiratory rate 14 /min 14 /min MEDENT ( [facility], [facility]) Heart rate 91 /min 91 /min MEDENT ([facility], [facility]) Diastolic blood pressure 84 mm[Hg] 84 mm[Hg] MEDENT ([facility], [facility]) Systolic blood pressure 123 mm[Hg] 123 mm[Hg] M EDENT ([facility] [facility], [facility]) Diastolic blood pressure 80 mm[Hg] 80 mm[Hg] eCW1 ([facility]) Systolic blood pressure 110 mm[Hg] 110 mm[Hg] e CW1 ([facility]) Body temperature 97.6 [degF] 97.6 [degF] eCW1 ( [facility]) Respiratory rate 20 /min 20 /min eCW1 ([facility]) Heart rate 88 /min 88 /min eCW1 ([facility]) Body mass index (BMI) [Ratio] 32.78 kg/m2 32.78 kg/m2 eCW1 ([facility]) Body height 69 [in_i] 69 [in_i] eCW1 ([facility]) Body weight 222 [lb_av] 222 [lb_av] eCW1 ([facility]) Diastolic blood pressure 68 mm[Hg] 68 mm[Hg] eCW1 ([facility]) Systolic blood pressure 104 mm[Hg] 104 mm[Hg] e CW1 ([facility]) Body temperature 98.1 [degF] 98.1 [degF] eCW1 ( [facility]) Respiratory rate 17 /min 17 /min eCW1 ([facility]) Heart rate 84 /min 84 /min eCW1 ([facility]) Body mass index (BMI) [Ratio] 33.64 kg/m2 33.64 kg/m2 eCW1 ([facility]) Body height 69 [in_i] 69 [in_i] eCW1 ([facility]) Body weight 227.8 [lb_av] 227.8 [lb_av] eCW1 ([facility]) Diastolic blood pressure 68 mm[Hg] 68 mm[Hg] eCW1 ([facility]) Systolic blood pressure 112 mm[Hg] 112 mm[Hg] e CW1 ([facility]) Body temperature 97.7 [degF] 97.7 [degF] eCW1 ( [facility]) Respiratory rate 17 /min 17 /min eCW1 ([facility]) Heart rate 102 /min 102 /min eCW1 ([facility]) Body mass index (BMI) [Ratio] 34.37 kg/m2 34.37 kg/m2 eCW1 ([facility]) Body height 69 [in_i] 69 [in_i] eCW1 ([facility]) Body weight 232.8 [lb_av] 232.8 [lb_av] eCW1 ([facility]) Diastolic blood pressure 78 mm[Hg] 78 mm[Hg] eCW1 ([facility]) Systolic blood pressure 124 mm[Hg] 124 mm[Hg] e CW1 ([facility]) Body temperature 96.6 [degF] 96.6 [degF] eCW1 ( [facility]) Respiratory rate 18 /min 18 /min eCW1 ([facility]) Heart rate 100 /min 100 /min eCW1 ([facility]) Body mass index (BMI) [Ratio] 34.05 kg/m2 34.05 kg/m2 eCW1 ([facility]) Body height 69 [in_us] 69 [in_us] eCW1 ([facility]) Body weight Measured 230.6 [lb_av] 230.6 [lb_av ] eCW1 ([facility]) Diastolic blood pressure 78 mm[Hg] 78 mm[Hg] eCW1 ([facility]) Systolic blood pressure 122 mm[Hg] 122 mm[Hg] e CW1 ([facility]) Body temperature 97.5 [degF] 97.5 [degF] eCW1 ( [facility]) Respiratory rate 18 /min 18 /min eCW1 ([facility]) Heart rate 99 /min 99 /min eCW1 ([facility]) Body mass index (BMI) [Ratio] 33.43 kg/m2 33.43 kg/m2 eCW1 ([facility]) Body height 69 [in_us] 69 [in_us] eCW1 ([facility]) Body weight Measured 226.4 [lb_av] 226.4 [lb_av ] eCW1 ([facility]) Diastolic blood pressure 80 mm[Hg] 80 mm[Hg] eCW1 ([facility]) Systolic blood pressure 122 mm[Hg] 122 mm[Hg] e CW1 ([facility]) Body temperature 97.8 [degF] 97.8 [degF] eCW1 ( [facility]) Respiratory rate 20 /min 20 /min eCW1 ([facility]) Heart rate 98 /min 98 /min eCW1 ([facility]) Body mass index (BMI) [Ratio] 33.64 kg/m2 33.64 kg/m2 W1 ([facility]) Body height 69 [in_i] 69 [in_i] eCW1 ([facility]) Body weight 227.8 [lb_av] 227.8 [lb_av] eCW1 ([facility]) Diastolic blood pressure 80 mm[Hg] 80 mm[Hg] eCW1 ([facility]) Systolic blood pressure 122 mm[Hg] 122 mm[Hg] e CW1 ([facility]) Body temperature 97.8 [degF] 97.8 [degF] eCW1 ( [facility]) Respiratory rate 20 /min 20 /min eCW1 ([facility]) Heart rate 98 /min 98 /min eCW1 ([facility]) Body mass index (BMI) [Ratio] 33.64 kg/m2 33.64 kg/m2 eCW1 ([facility]) Body height 69 [in_us] 69 [in_us] eCW1 ([facility]) Body weight Measured 227.8 [lb_av] 227.8 [lb_av ] eCW1 ([facility]) Heart rate 104 /min 104 /min eCW1 ([facility]) Body mass index (BMI) [Ratio] 33.61 kg/m2 33.61 kg/m2 eCW1 ([facility]) Body height 69 [in_us] 69 [in_us] eCW1 ([facility]) Body weight Measured 227.6 [lb_av] 227.6 [lb_av ] eCW1 ([facility]) Diastolic blood pressure 72 mm[Hg] 72 mm[Hg] eCW1 ([facility]) Systolic blood pressure 120 mm[Hg] 120 mm[Hg] e CW1 ([facility]) Body temperature 98.0 [degF] 98.0 [degF] eCW1 ( [facility]) Respiratory rate 20 /min 20 /min eCW1 ([facility]) Diastolic blood pressure 78 mm[Hg] 78 mm[Hg] eCW1 ([facility]) Systolic blood pressure 124 mm[Hg] 124 mm[Hg] e CW1 ([facility]) Body temperature 97.7 [degF] 97.7 [degF] eCW1 ( [facility]) Respiratory rate 18 /min 18 /min eCW1 ([facility]) Heart rate 97 /min 97 /min eCW1 ([facility]) Body mass index (BMI) [Ratio] 33.13 kg/m2 33.13 kg/m2 eCW1 ([facility]) Body height 69 [in_us] 69 [in_us] eCW1 ([facility]) Body weight Measured 224.4 [lb_av] 224.4 [lb_av ] eCW1 ([facility]) Diastolic blood pressure 64 mm[Hg] 64 mm[Hg] eCW1 ([facility]) Systolic blood pressure 120 mm[Hg] 120 mm[Hg] e CW1 ([facility]) Body temperature 97.4 [degF] 97.4 [degF] eCW1 ( [facility]) Respiratory rate 17 /min 17 /min eCW1 ([facility]) Heart rate 83 /min 83 /min eCW1 ([facility]) Body mass index (BMI) [Ratio] 33.34 kg/m2 33.34 kg/m2 eCW1 ([facility]) Body height 69 [in_us] 69 [in_us] eCW1 ([facility]) Body weight Measured 225.8 [lb_av] 225.8 [lb_av ] eCW1 ([facility]) Diastolic blood pressure 70 mm[Hg] 70 mm[Hg] eCW1 ([facility]) Systolic blood pressure 112 mm[Hg] 112 mm[Hg] e CW1 ([facility]) Body temperature 97.2 [degF] 97.2 [degF] eCW1 ( [facility]) Respiratory rate 18 /min 18 /min eCW1 ([facility]) Heart rate 96 /min 96 /min eCW1 ([facility]) Body mass index (BMI) [Ratio] 34.05 kg/m2 34.05 kg/m2 W1 ([facility]) Body height 69 [in_us] 69 [in_us] eCW1 ([facility]) Body weight Measured 230.6 [lb_av] 230.6 [lb_av ] eCW1 ([facility]) Patient Treatment Plan of Care Planned Activity Planned Date Details Description Data Source (s) valacyclovir 1000 MG Oral Tablet [Valtrex] 02/13/2020 12:00:[address] eCW1 ([facility]) Trulicity 3 MG/0.5ML 02/13/2020 12:00:00 AM EST eCW1 ([facility]) valacyclovir 1000 MG Oral Tablet [Valtrex] 02/13/2020 12:00:[address] eCW1 ([facility]) Trulicity 3 MG/0.5ML 02/13/2020 12:00:00 AM EST eCW1 ([facility]) Levofloxacin 500 MG Oral Tablet 11/24/2019 12:00:00 AM EDT eCW1 ([facility]) valacyclovir 1000 MG Oral Tablet [Valtrex] 11/24/2019 12:00:00 AM E DT eCW1 ([facility]) Levofloxacin 500 MG Oral Tablet 11/24/2019 12:00:00 AM EDT eCW1 ([facility]) valacyclovir 1000 MG Oral Tablet [Valtrex] 11/24/2019 12:00:00 AM E DT eCW1 ([facility]) Levofloxacin 500 MG Oral Tablet 11/24/2019 12:00:00 AM EDT eCW1 ([facility]) valacyclovir 1000 MG Oral Tablet [Valtrex] 11/24/2019 12:00:00 AM E DT eCW1 ([facility]) Levofloxacin 500 MG Oral Tablet 11/24/2019 12:00:00 AM EDT eCW1 ([facility]) valacyclovir 1000 MG Oral Tablet [Valtrex] 11/24/2019 12:00:00 AM E DT eCW1 ([facility]) Levofloxacin 500 MG Oral Tablet 11/24/2019 12:00:00 AM EDT eCW1 ([facility]) valacyclovir 1000 MG Oral Tablet [Valtrex] 11/24/2019 12:00:00 AM E DT eCW1 ([facility]) Levofloxacin 500 MG Oral Tablet 11/24/2019 12:00:00 AM EDT eCW1 ([facility]) valacyclovir 1000 MG Oral Tablet [Valtrex] 11/24/2019 12:00:00 AM E DT eCW1 ([facility]) sildenafil 100 MG Oral Tablet 06/16/2019 12:00:00 AM EDT eCW1 ([facility]) Azithromycin 250 MG Oral Tablet 05/18/2019 12:00:00 AM EDT eCW1 ([facility]) Azithromycin 250 MG Oral Tablet 05/18/2019 12:00:00 AM EDT eCW1 ([facility]) Levofloxacin 500 MG Oral Tablet 05/05/2019 12:00:00 AM EDT eCW1 ([facility]) Amoxicillin 500 MG Oral Capsule 04/21/2019 12:00:00 AM EDT eCW1 ([facility]) [employer] - 01/25/2019 12:00:00 AM EST eCW1 ([facility]) [employer] - 01/25/2019 12:00:00 AM EST eCW1 ([facility]) [employer] - 01/25/2019 12:00:00 AM EST eCW1 ([facility]) [employer] - 01/25/2019 12:00:00 AM EST eCW1 ([facility]) [employer] - 01/25/2019 12:00:00 AM EST eCW1 ([facility]) [employer] - 01/25/2019 12:00:00 AM EST eCW1 ([facility]) [employer] - 01/25/2019 12:00:00 AM EST eCW1 ([facility]) [employer] - 01/25/2019 12:00:00 AM EST eCW1 ([facility]) [employer] [place] - 01/25/2019 12:00:00 AM EST eCW1 ([facility])
[2020-02-23] MEDS ORDERED: DULA3PEN (18:08)
--- OUTSIDE RECORDS SUMMARY | 2020-02-23 19:18 | CCD ---
Author Author [facility] Organization [facility] Address Unknown Phone Unavailable Care Team Providers Care Glaze Handler Name Role Phone Campdoronro Marnyasia Castrejon PA [...] is protected by Article 27-F of the [facility] Public Health law. If you continue you may have access to information: Regarding HIV / AIDS; Provided by facilities licensed or operated by the [facility] Office of Mental Health; or Provided by the [facility] Office for People With Developmental Disabilities. If such information is present, then the following [facility] mandated warning applies: This information has [...] law may result in a fine or longterm sentence or both. A general authorization for the release of medical or other information is NOT sufficient authorization for further disc losure. Allergies and Adverse Reactions Type Description Substance Reaction Status Data Source(s ) Drug allergy Lipitor atorvastatin Myalgia Active eCW1 ([facility]) morphine morphine Morphine Sulfate 15 MG Extended Release O ral Tablet N/V Active eCW1 ([facility]) morphine morphine Morphine Sulfate 15 MG Extended Release O ral Tablet N/V Active eCW1 ([facility]) morphine morphine Morphine Sulfate 15 MG Extended Release O ral Tablet N/V Active eCW1 ([facility]) morphine morphine Morphine Sulfate 15 MG Extended Release O ral Tablet N/V Active eCW1 ([facility]) morphine morphine Morphine Sulfate 15 MG Extended Release O ral Tablet N/V Active eCW1 ([facility]) morphine morphine Morphine Sulfate 15 MG Extended Release O ral Tablet N/V Active eCW1 ([facility]) morphine morphine Morphine Sulfate 15 MG Extended Release O ral Tablet N/V Active eCW1 ([facility]) Family History Family Member Name Family Member Gender Family Member Status Date o f Status Description Data Source(s) Unknown Unknown Problem MEDENT ([facility]) sister Unknown Unknown Problem MEDENT ([facility]) Encounters Encounter Providers Location Date Indications Data Source(s ) Unknown [address] [facility] [address] 02/21/2020 12:00:00 AM EST eCW1 ([facility]) [place] [address] [facility] [place] [address] 02/13/2020 12:00:00 AM EST eCW1 ([facility]) [place] [address] [facility] [place] [address] 02/11/2020 12:00:00 AM EST eCW1 ([facility]) [place] [address] [facility] [place] [address] 02/05/2020 12:00:00 AM EST eCW1 ([facility]) Unknown [address] [facility] [address] 02/05/2020 12:00:00 AM EST eCW1 ([facility] Unknown [address] [facility] [address] 01/29/2020 12:00:00 AM EST eCW1 ([facility]) Unknown [address] [facility] [address] 01/26/2020 12:00:00 AM EST eCW1 ([facility]) Outpatient [address] [facility] [address] 12/22/2019 12:00:00 AM EST eCW1 ([facility]) Outpatient [address] [facility] [address] 12/15/2019 12:00:00 AM EST eCW1 ([facility]) Unknown [address] [facility] [address] 12/04/2019 12:00:00 AM EDT eCW1 ([facility]) Unknown [address] [facility] [address] 11/30/2019 12:00:00 AM EDT eCW1 ([facility]) Unknown [address] [facility] [address] 11/30/2019 12:00:00 AM EDT eCW1 ([facility]) Outpatient [address] [facility] [address] 11/24/2019 12:00:00 AM EDT eCW1 ([facility]) Outpatient Attender: Lucía Baldwin Prim isi 11/21/2019 05:10:00 PM EDT MEDENT ([facility]) Unknown [address] [facility] [address] 11/19/2019 12:00:00 AM EDT eCW1 ([facility]) Outpatient Attender: EMI Baldwin Prim isi 11/17/2019 02:10:00 PM EDT MEDENT ([facility]) Unknown [address] [facility] [address] 11/16/2019 12:00:00 AM EDT eCW1 ([facility]) Unknown [address] [facility] [address] 11/16/2019 12:00:00 AM EDT eCW1 ([facility]) Unknown [address] [facility] [address] 11/15/2019 12:00:00 AM EDT eCW1 ([facility]) Outpatient [address] [facility] [address] 08/25/2019 12:00:00 AM EDT eCW1 ([facility]) [facility] [address] [facility] [address] 08/25/2019 12:00:00 AM EDT eCW1 ([facility]) Outpatient [address] [facility] [address] 08/18/2019 12:00:00 AM EDT eCW1 ([facility]) Outpatient [address] [facility] [address] 07/21/2019 12:00:00 AM EDT eCW1 ([facility]) [facility] [address] [facility] [address] 06/27/2019 12:00:00 AM EDT eCW1 ([facility]) [facility] [address] [facility] [address] 06/16/2019 12:00:00 AM EDT eCW1 ([facility]) [facility] [address] [facility] [address] 06/15/2019 12:00:00 AM EDT eCW1 ([facility]) [facility] [address] [facility] [address] 06/02/2019 12:00:00 AM EDT eCW1 ([facility]) [facility] [address] [facility] [address] 05/19/2019 12:00:00 AM EDT [facility]CW1 [facility] [address] [facility] [address] 05/19/2019 12:00:00 AM EDT [facility] [address] [facility] [address] 05/18/2019 12:00:00 AM EDT [facility]CW1 [facility] [address] [facility] [address] 05/12/2019 12:00:00 AM EDT [facility] [address] [facility] [address] 05/05/2019 12:00:00 AM EDT eCW1 [facility] [address] [facility] [address] 05/02/2019 12:00:00 AM EDT eCW1 [facility] [address] [facility] [address] 04/21/2019 12:00:00 AM EDT eCW1 [facility] [address] [facility] [address] 03/22/2019 12:00:00 AM EST eCW1 [facility]) [facility] [address] [place] [address], [place] [address] 02/22/2019 12:00:00 AM EST eCW1 [facility] [address] [place] [address], [place] [address] 01/25/2019 12:00:00 AM EST eCW1 [facility] [address] [facility] [address] 01/23/2019 12:00:00 AM EST [facility]CW1 [facility]) Immunizations Vaccine Date Status Description Data Source(s) [...] {tablet} active Va ltrex 1 GM eCW1 ([facility]) valacyclovir 1000 MG Oral Tablet [Valtrex] Valtrex 1 GM Valt jimena 1 GM 02/13/2020 12:00:00 AM EST 1.0 {tablet} active Va ltrex 1 GM eCW1 ([facility]) Trulicity 3 MG/0.5ML Trulicity 3 MG/0.5ML 02/13/2020 12:00:00 AM EST active Trulicity 3 MG/0.5ML eCW1 ([facility]) Trulicity 3 MG/0.5ML Trulicity 3 MG/0.5ML 02/13/2020 12:00:00 AM EST active Trulicity 3 MG/0.5ML eCW1 ([facility]) Levofloxacin 500 MG Oral Tablet Levofloxacin 500 MG 11/24/2019 1 2:00:00 AM EDT 1.0 {tablet} active Levofloxaci n 500 MG eCW1 ([facility]) Levofloxacin 500 MG Oral Tablet Levofloxacin 500 MG 11/24/2019 1 2:00:00 AM EDT 1.0 {tablet} active Levofloxaci n 500 MG eCW1 ([facility]) valacyclovir 1000 MG Oral Tablet [Valtrex] Valtrex 1 GM Valt jimena 1 GM 11/24/2019 12:00:00 AM EDT 1.0 {tablet} active Va ltrex 1 GM eCW1 ([facility]) Levofloxacin 500 MG Oral Tablet Levofloxacin 500 MG 11/24/2019 1 2:00:00 AM EDT 1.0 {tablet} active Levofloxaci n 500 MG eCW1 ([facility]) Levofloxacin 500 MG Oral Tablet Levofloxacin 500 MG 11/24/2019 1 2:00:00 AM EDT 1.0 {tablet} active Levofloxaci n 500 MG eCW1 ([facility]) Levofloxacin 500 MG Oral Tablet Levofloxacin 500 MG 11/24/2019 1 2:00:00 AM EDT 1.0 {tablet} active Levofloxaci n 500 MG eCW1 ([facility]) Levofloxacin 500 MG Oral Tablet Levofloxacin 500 MG 11/24/2019 1 2:00:00 AM EDT 1.0 {tablet} active Levofloxaci n 500 MG eCW1 ([facility]) valacyclovir 1000 MG Oral Tablet [Valtrex] Valtrex 1 GM Valt jimena 1 GM 11/24/2019 12:00:00 AM EDT 1.0 {tablet} active Va ltrex 1 GM eCW1 ([facility]) valacyclovir 1000 MG Oral Tablet [Valtrex] Valtrex 1 GM Valt jimena 1 GM 11/24/2019 12:00:00 AM EDT 1.0 {tablet} active Va ltrex 1 GM eCW1 ([facility]) valacyclovir 1000 MG Oral Tablet [Valtrex] Valtrex 1 GM Valt jimena 1 GM 11/24/2019 12:00:00 AM EDT 1.0 {tablet} active Va ltrex 1 GM eCW1 ([facility]) Levofloxacin 500 MG Oral Tablet Levofloxacin 500 MG 11/24/2019 1 2:00:00 AM EDT 1.0 {tablet} active Levofloxaci n 500 MG eCW1 ([facility]) Levofloxacin 500 MG Oral Tablet Levofloxacin 500 MG 11/24/2019 1 2:00:00 AM EDT 1.0 {tablet} active Levofloxaci n 500 MG eCW1 ([facility]) valacyclovir 1000 MG Oral Tablet [Valtrex] Valtrex 1 GM Valt jimena 1 GM 11/24/2019 12:00:00 AM EDT 1.0 {tablet} active Va ltrex 1 GM eCW1 ([facility]) valacyclovir 1000 MG Oral Tablet [Valtrex] Valtrex 1 GM Valt jimena 1 GM 11/24/2019 12:00:00 AM EDT 1.0 {tablet} active Va ltrex 1 GM eCW1 ([facility]) Levofloxacin 500 MG Oral Tablet Levofloxacin 500 MG 11/24/2019 1 2:00:00 AM EDT 1.0 {tablet} active Levofloxaci n 500 MG eCW1 ([facility]) Levofloxacin 500 MG Oral Tablet Levofloxacin 500 MG 11/24/2019 1 2:00:00 AM EDT 1.0 {tablet} active Levofloxaci n 500 MG eCW1 ([facility]) Levofloxacin 500 MG Oral Tablet Levofloxacin 500 MG 11/24/2019 1 2:00:00 AM EDT 1.0 {tablet} active Levofloxaci n 500 MG eCW1 ([facility]) valacyclovir 1000 MG Oral Tablet [Valtrex] Valtrex 1 GM Valt jimena 1 GM 11/24/2019 12:00:00 AM EDT 1.0 {tablet} active Va ltrex 1 GM eCW1 ([facility]) valacyclovir 1000 MG Oral Tablet [Valtrex] Valtrex 1 GM Valt jimena 1 GM 11/24/2019 12:00:00 AM EDT 1.0 {tablet} active Va ltrex 1 GM eCW1 ([facility]) valacyclovir 1000 MG Oral Tablet [Valtrex] Valtrex 1 GM Valt jimena 1 GM 11/24/2019 12:00:00 AM EDT 1.0 {tablet} active Va ltrex 1 GM eCW1 ([facility]) valacyclovir 1000 MG Oral Tablet [Valtrex] Valtrex 1 GM Valt jimena 1 GM 11/24/2019 12:00:00 AM EDT 1.0 {tablet} active Va ltrex 1 GM eCW1 ([facility]) Levofloxacin 500 MG Oral Tablet Levofloxacin 500 MG 11/24/2019 1 2:00:00 AM EDT 1.0 {tablet} active Levofloxaci n 500 MG eCW1 ([facility]) valacyclovir 1000 MG Oral Tablet [Valtrex] Valtrex 1 GM Valt jimena 1 GM 11/24/2019 12:00:00 AM EDT 1.0 {tablet} active Va ltrex 1 GM eCW1 ([facility]) valacyclovir 1000 MG Oral Tablet [Valtrex] Valtrex 1 GM Valt jimena 1 GM 11/24/2019 12:00:00 AM EDT 1.0 {tablet} active Va ltrex 1 GM eCW1 ([facility]) valacyclovir 1000 MG Oral Tablet [Valtrex] Valtrex 1 GM Valt jimena 1 GM 11/24/2019 12:00:00 AM EDT 1.0 {tablet} active Va ltrex 1 GM eCW1 ([facility]) Levofloxacin 500 MG Oral Tablet Levofloxacin 500 MG 11/24/2019 1 2:00:00 AM EDT 1.0 {tablet} active Levofloxaci n 500 MG eCW1 ([facility]) Levofloxacin 500 MG Oral Tablet Levofloxacin 500 MG 11/24/2019 1 2:00:00 AM EDT 1.0 {tablet} active Levofloxaci n 500 MG eCW1 ([facility]) valacyclovir 1000 MG Oral Tablet [Valtrex] Valtrex 1 GM Valt jimena 1 GM 11/24/2019 12:00:00 AM EDT 1.0 {tablet} active Va ltrex 1 GM eCW1 ([facility]) Phenazopyridine hydrochloride 200 MG Delayed Release O ral Tablet Phenazopyridine HCL 11/17/2019 12:00:00 AM EDT ORAL completed MEDENT ([facility]) . UNIT 10/31/2019 12:00:00 AM EDT Injectable 1 AD MIN FEE ADMIN FEE SOLD: 11/02/2019 [facility] sildenafil 100 MG Oral Tablet Sildenafil Citrate 100 M G Sildenafil Citrate 100 MG 06/16/2019 12:00:00 AM EDT 1.0 {tablet_as_needed} active Sildenafil Citrate 100 MG eCW1 ([facility]) sildenafil 100 MG Oral Tablet Sildenafil Citrate 100 M G Sildenafil Citrate 100 MG 06/16/2019 12:00:00 AM EDT 1.0 {tablet_as_needed} active Sildenafil Citrate 100 MG eCW1 ([facility]) sildenafil 100 MG Oral Tablet Sildenafil Citrate 100 M G Sildenafil Citrate 100 MG 06/16/2019 12:00:00 AM EDT 1.0 {tablet_as_needed} active Sildenafil Citrate 100 MG eCW1 ([facility]) sildenafil 100 MG Oral Tablet Sildenafil Citrate 100 M G Sildenafil Citrate 100 MG 06/16/2019 12:00:00 AM EDT 1.0 {tablet_as_needed} active Sildenafil Citrate 100 MG eCW1 ([facility]) sildenafil 100 MG Oral Tablet Sildenafil Citrate 100 M G Sildenafil Citrate 100 MG 06/16/2019 12:00:00 AM EDT 1.0 {tablet_as_needed} active Sildenafil Citrate 100 MG eCW1 ([facility]) sildenafil 100 MG Oral Tablet Sildenafil Citrate 100 M G Sildenafil Citrate 100 MG 06/16/2019 12:00:00 AM EDT 1.0 {tablet_as_needed} active Sildenafil Citrate 100 MG eCW1 ([facility]) sildenafil 100 MG Oral Tablet Sildenafil Citrate 100 M G Sildenafil Citrate 100 MG 06/16/2019 12:00:00 AM EDT 1.0 {tablet_as_needed} active Sildenafil Citrate 100 MG eCW1 ([facility]) sildenafil 100 MG Oral Tablet Sildenafil Citrate 100 M G Sildenafil Citrate 100 MG 06/16/2019 12:00:00 AM EDT 1.0 {tablet_as_needed} active Sildenafil Citrate 100 MG eCW1 ([facility]) sildenafil 100 MG Oral Tablet Sildenafil Citrate 100 M G Sildenafil Citrate 100 MG 06/16/2019 12:00:00 AM EDT 1.0 {tablet_as_needed} active Sildenafil Citrate 100 MG eCW1 ([facility]) sildenafil 100 MG Oral Tablet Sildenafil Citrate 100 M G Sildenafil Citrate 100 MG 06/16/2019 12:00:00 AM EDT 1.0 {tablet_as_needed} active Sildenafil Citrate 100 MG eCW1 ([facility]) sildenafil 100 MG Oral Tablet Sildenafil Citrate 100 M G Sildenafil Citrate 100 MG 06/16/2019 12:00:00 AM EDT 1.0 {tablet_as_needed} active Sildenafil Citrate 100 MG eCW1 ([facility]) sildenafil 100 MG Oral Tablet Sildenafil Citrate 100 M G Sildenafil Citrate 100 MG 06/16/2019 12:00:00 AM EDT 1.0 {tablet_as_needed} active Sildenafil Citrate 100 MG eCW1 ([facility]) sildenafil 100 MG Oral Tablet Sildenafil Citrate 100 M G Sildenafil Citrate 100 MG 06/16/2019 12:00:00 AM EDT 1.0 {tablet_as_needed} active Sildenafil Citrate 100 MG eCW1 ([facility]) sildenafil 100 MG Oral Tablet Sildenafil Citrate 100 M G Sildenafil Citrate 100 MG 06/16/2019 12:00:00 AM EDT 1.0 {tablet_as_needed} active Sildenafil Citrate 100 MG eCW1 ([facility]) sildenafil 100 MG Oral Tablet Sildenafil Citrate 100 M G Sildenafil Citrate 100 MG 06/16/2019 12:00:00 AM EDT 1.0 {tablet_as_needed} active Sildenafil Citrate 100 MG eCW1 ([facility]) sildenafil 100 MG Oral Tablet Sildenafil Citrate 100 M G Sildenafil Citrate 100 MG 06/16/2019 12:00:00 AM EDT 1.0 {tablet_as_needed} active Sildenafil Citrate 100 MG eCW1 ([facility]) sildenafil 100 MG Oral Tablet Sildenafil Citrate 100 M G Sildenafil Citrate 100 MG 06/16/2019 12:00:00 AM EDT 1.0 {tablet_as_needed} active Sildenafil Citrate 100 MG eCW1 ([facility]) sildenafil 100 MG Oral Tablet Sildenafil Citrate 100 M G Sildenafil Citrate 100 MG 06/16/2019 12:00:00 AM EDT 1.0 {tablet_as_needed} active Sildenafil Citrate 100 MG eCW1 ([facility]) sildenafil 100 MG Oral Tablet Sildenafil Citrate 100 M G Sildenafil Citrate 100 MG 06/16/2019 12:00:00 AM EDT 1.0 {tablet_as_needed} active Sildenafil Citrate 100 MG eCW1 ([facility]) sildenafil 100 MG Oral Tablet Sildenafil Citrate 100 M G Sildenafil Citrate 100 MG 06/16/2019 12:00:00 AM EDT 1.0 {tablet_as_needed} active Sildenafil Citrate 100 MG eCW1 ([facility]) sildenafil 100 MG Oral Tablet Sildenafil Citrate 100 M G Sildenafil Citrate 100 MG 06/16/2019 12:00:00 AM EDT active 1 tablet as needed eCW1 ([facility]) sildenafil 100 MG Oral Tablet Sildenafil Citrate 100 M G Sildenafil Citrate 100 MG 06/16/2019 12:00:00 AM EDT 1.0 {tablet_as_needed} active Sildenafil Citrate 100 MG eCW1 ([facility]) Azithromycin 250 MG Oral Tablet Azithromycin 250 MG 05/18/2019 1 2:00:00 AM EDT active as directed eCW1 ([facility]) Azithromycin 250 MG Oral Tablet Azithromycin 250 MG 05/18/2019 1 2:00:00 AM EDT active as directed eCW1 ([facility]) Azithromycin 250 MG Oral Tablet Azithromycin 250 MG 05/18/2019 1 2:00:00 AM EDT active as directed eCW1 ([facility]) Levofloxacin 500 MG Oral Tablet Levofloxacin 500 MG 05/05/2019 1 2:00:00 AM EDT active 1 tablet eCW1 ([facility]) Levofloxacin 500 MG Oral Tablet Levofloxacin 500 MG 05/05/2019 1 2:00:00 AM EDT active 1 tablet eCW1 ([facility]) Levofloxacin 500 MG Oral Tablet Levofloxacin 500 MG 05/05/2019 1 2:00:00 AM EDT active 1 tablet eCW1 ([facility]) Amoxicillin 500 MG Oral Capsule Amoxicillin 500 MG 04/21/2019 12:00 :00 AM EDT active 1 capsule eCW1 ([facility]) [employer] - [employer]Style Jd Sensor Syste m - 01/25/2019 12:00:00 AM EST active 1 sensor eCW1 ([facility]) [employer] J[employer] Sensor System - [employer] Jd Sensor Syste m - 01/25/2019 12:00:00 AM EST active 1 sensor eCW1 ([facility]) [employer] Jd [place] - Free[employer] Jd [place] - 01/25/2019 12:00: 00 AM EST active [employer] J[employer] [place] - eCW1 ([facility]) [employer] J[employer] [place] - [employer] J[employer] [place] - 01/25/2019 12:00: 00 AM EST active [employer] Jd [place] - eCW1 ([facility]) [employer] J[employer]ensor System - [employer] Jd Sensor Syste m - 01/25/2019 12:00:00 AM EST active [employer]Styl e J[employer]ensor System - eCW1 ([facility]) FreeStyle Jd [place] - [employer] Jd [place] - 01/25/2019 12:00: 00 AM EST active 1 reader for 2 weeks eCW 1 ([facility]) [employer] J[employer]ensor System - [employer]Style Jd Sensor Syste m - 01/25/2019 12:00:00 AM EST active 1 sensor eCW1 ([facility]) [employer] J[employer]ensor System - FreeStyle Jd Sensor Syste m - 01/25/2019 12:00:00 AM EST active [employer] System - eCW1 ([facility]) [employer] Jd Sensor System - FreeStyle Jd Sensor Syste m - 01/25/2019 12:00:00 AM EST active [employer] - eCW1 ([facility]) [employer] Jd Sensor System - FreeStyle Jd Sensor Syste m - 01/25/2019 12:00:00 AM EST active [employer] System - eCW1 ([facility]) [employer] Jd [place] - [employer] Jd [place] - 01/25/2019 12:00: 00 AM EST active [employer] Jd [place] - eCW1 ([facility]) [employer] J[employer] [place] - [employer] J[employer] [place] - 01/25/2019 12:00: 00 AM EST active [employer] J[employer] [place] - eCW1 ([facility]) [employer] Jd [place] - [employer] J[employer] [place] - 01/25/2019 12:00: 00 AM EST active [employer] Jd [place] - eCW1 ([facility]) Free[employer] Jd [place] - [employer] J[employer] [place] - 01/25/2019 12:00: 00 AM EST active [employer] Jd [place] - eCW1 ([facility]) Free[employer] Jd [place] - [employer] J[employer] [place] - 01/25/2019 12:00: 00 AM EST active [employer] Jd [place] - eCW1 ([facility]) Free[employer] Jd [place] - [employer] Jd [place] - 01/25/2019 12:00: 00 AM EST active [employer] Jd [place] - eCW1 ([facility]) [employer] Sensor System - [employer]Style Jd Sensor Syste m - 01/25/2019 12:00:00 AM EST active 2 sensor eCW1 ([facility]) [employer] J[employer] [place] - [employer] J[employer] [place] - 01/25/2019 12:00: 00 AM EST active [employer] Jd [place] - eCW1 ([facility]) Free[employer] Jd [place] - [employer] J[employer] [place] - 01/25/2019 12:00: 00 AM EST active [employer] J[employer] [place] - eCW1 ([facility]) Free[employer] Jd [place] - [employer] J[employer] [place] - 01/25/2019 12:00: 00 AM EST active 1 reader for 2 weeks eCW 1 ([facility]) [employer] System - FreeStyle Jd Sensor Syste m - 01/25/2019 12:00:00 AM EST active [employer] System - eCW1 ([facility]) [employer] J[employer] Sensor System - FreeStyle Jd Sensor Syste m - 01/25/2019 12:00:00 AM EST active [employer] e [employer] System - eCW1 ([facility]) FreeStyle Jd [place] - [employer] Jd [place] - 01/25/2019 12:00: 00 AM EST active [employer] Jd [place] - eCW1 ([facility]) [employer] J[employer] Sensor System - FreeStyle Jd Sensor Syste m - 01/25/2019 12:00:00 AM EST active [employer] System - eCW1 ([facility]) [employer] Jd [place] - [employer] Jd [place] - 01/25/2019 12:00: 00 AM EST active [employer] Jd [place] - eCW1 ([facility]) [employer] J[employer] Sensor System - FreeStyle Jd Sensor Syste m - 01/25/2019 12:00:00 AM EST active 1 sensor eCW1 ([facility]) [employer] Jd [place] - [employer] Jd [place] - 01/25/2019 12:00: 00 AM EST active 1 reader for 2 weeks eCW 1 ([facility]) [employer] System - [employer]Style Jd Sensor Syste m - 01/25/2019 12:00:00 AM EST active 1 sensor eCW1 ([facility]) [employer] J[employer] [place] - [employer] Jd [place] - 01/25/2019 12:00: 00 AM EST active [employer] Jd [place] - eCW1 ([facility]) [employer] J[employer] Sensor System - [employer]Style Jd Sensor Syste m - 01/25/2019 12:00:00 AM EST active 2 sensor eCW1 ([facility]) [employer] Jd [place] - [employer] Jd [place] - 01/25/2019 12:00: 00 AM EST active 1 reader for 2 weeks eCW 1 ([facility]) [employer] J[employer] [place] - [employer] Jd [place] - 01/25/2019 12:00: 00 AM EST active [employer] J[employer] [place] - eCW1 ([facility]) [employer] J[employer] [place] - [employer] J[employer] [place] - 01/25/2019 12:00: 00 AM EST active [employer] J[employer] [place] - eCW1 ([facility]) [employer] Sensor System - FreeStyle Jd Sensor Syste m - 01/25/2019 12:00:00 AM EST active FreeStyl e Jd Sensor System - eCW1 ([facility]) [employer]Style Jd Sensor System - FreeStyle Jd Sensor Syste m - 01/25/2019 12:00:00 AM EST active 1 sensor eCW1 ([facility]) FreeStyle Jd [place] - [employer]Style J[employer] [place] - 01/25/2019 12:00: 00 AM EST active [employer]Style Jd [place] - eCW1 ([facility]) [employer]Style Jd [place] - [employer] J[employer] [place] - 01/25/2019 12:00: 00 AM EST active [employer]Style Jd [place] - eCW1 ([facility]) [employer] Jd [place] - [employer] J[employer] [place] - 01/25/2019 12:00: 00 AM EST active FreeStyle Dj [place] - eCW1 ([facility]) [employer]Style Jd [place] - [employer] J[employer] [place] - 01/25/2019 12:00: 00 AM EST active [employer]Style Jd [place] - eCW1 ([facility]) [employer]Style Jd [place] - [employer] J[employer] [place] - 01/25/2019 12:00: 00 AM EST active 1 reader for 2 weeks eCW 1 ([facility]) FreeStyle Jd [place] - [employer]Style J[employer] [place] - 01/25/2019 12:00: 00 AM EST active 1 reader for 2 weeks eCW 1 ([facility]) [employer] Jd Sensor System - FreeStyle Jd Sensor Syste m - 01/25/2019 12:00:00 AM EST active [employer]Styl e Jd Sensor System - eCW1 ([facility]) [employer]Style Jd Sensor System - FreeStyle Jd Sensor Syste m - 01/25/2019 12:00:00 AM EST active [employer]Styl e Jd Sensor System - eCW1 ([facility]) FreeStyle Jd [place] - FreeStyle Jd [place] - 01/25/2019 12:00: 00 AM EST active FreeStyle Jd [place] - eCW1 ([facility]) FreeStyle Jd Sensor System - FreeStyle Jd Sensor Syste m - 01/25/2019 12:00:00 AM EST active FreeStyl e Jd Sensor System - eCW1 ([facility]) FreeStyle Jd Sensor System - FreeStyle Jd Sensor Syste m - 01/25/2019 12:00:00 AM EST active 1 sensor eCW1 ([facility]) FreeStyle Jd [place] - [employer]Style Jd [place] - 01/25/2019 12:00: 00 AM EST active 1 reader for 2 weeks eCW 1 ([facility]) FreeStyle Jd [place] - [employer]Style Jd [place] - 01/25/2019 12:00: 00 AM EST active FreeStyle Jd [place] - eCW1 ([facility]) Insurance Providers Payer name Policy type / Coverage type Policy ID Covered democrat ID Covered democrat's relationship to wharton Policy Wharton Plan Information R [facility] [id number] ANSI-Commercial [id number] ANSI-Commercial [id number] ANSI-Commercial [id number] ANSI-Commercial [id number] ANSI-Commercial [id number]-q8y2-0q2f-5mt4-[id number] ANSI-Commercial [id number] ANSI-Commercial [id number]-kmeo-4d5n-[id number] fqx15k81-qzdf-0d4o-u3e0-57megpnsu665 ANSI-Commercial [id number] ANSI-Commercial [id number]-8h5a-[id number] ANSI-Commercial [id number]-6x0f-93wr4reo74gk [id number]-nn47-82tx-2q0v-57gg1yfj30de ANSI-Commercial [id number]-[id number]-[id number] ANSI-Commercial [id number]-00e4-n98e-[id number] 0djxcz49-05iq-00e8-h31d-0sy85x2e7m03 ANSI-Commercial [id number]-f3tw-n5j4g5k9f2i5 705614ge-3221-89v2-h0ae-i0f4f5b6m2i8 ANSI-Commercial [id number]-a723-80m2-z022-[id number] 3n3p662q-d103-40f5-r279-azo698822x7m ANSI-Commercial [id number]-[id number] 6o300k4w-8265-662p-[id number] ANSI-Commercial rlok9n21-4342-81xz-p9y9-2fdogz6oxb78 fgvp0p35-5169-01he-x0d2-2lgqsu0prl37 ANSI-Commercial [id number]-2369-j5s3i0w4i016 05585j61-0822-7xaz-2016-p9b3w2a3j914 ANSI-Commercial [id number]-[id number]-[id number] [facility] [id number] [id number] ANSI-Commercial [id number]-5973-[id number]-0707-d6k6-5h22c4118qt5 ANSI-Commercial [id number]-[id number]-[id number] [id number]-no40-1f09-0268-spo4yi1ki807 ANSI-Commercial [id number]-6039-[id number] 8r5fd621-28v1-8pis-6884-c896o7105k6t ANSI-Commercial [id number]-f34r-093p-37kp-[id number] u3l7987d-w70z-942b-24tt-e681307c1506 ANSI-Commercial 4nx5fub3-69p9-82q7-43a3-n54ce707439g 6kr3fxg6-22b5-23d9-65j5-x05op220626e ANSI-Commercial i5ir9891-h92x-50u9-3851-93j5ih0wp6h2 g6nh6070-u27j-80q9-9647-15x1zt5gt6u5 ANSI-Commercial l9g268l9-0718-1z81-wj64-4o5x2jf6k537 v9s146k8-0167-9a17-xg52-5p7l8ci3z485 ANSI-Commercial 755078e8-a716-7e5i-9r2s-03f3vs2930zn 686367k8-z536-8w8p-5t7e-99k4aq0096xm ANSI-Commercial 7en8b0u9-09xw-3l2y-8o60-7jp4g430rv40 9ul7g0d5-61fu-2a2e-1i55-4tr8l097he12 ANSI-Commercial 3952r830-p5d3-6e4n-6701-9eh29ks7856h 4854m472-i0h8-4c8n-9883-8au43ri8529x ANSI-Commercial q38xe32d-9h22-7qg5-l8y3-5nd2i6p88e0n f13hp46a-8g21-7tf4-n6o8-7wa1k1z18v0n ANSI-Commercial 233y0885-wlod-2798-etzt-f59ugr764vri 617n9165-brnk-5846-ypxz-x10fyn306ruf ANSI-Commercial 6h7zes00-4336-64u2-0511-a99342v7e6w1 7t4rsu87-2685-33e3-0937-b06110l5f8h5 ANSI-Commercial 16332a7l-037m-1eln-8d2y-9p59ah35512t 64875y8m-393a-7kgi-0g1g-5q40cc31235u ANSI-Commercial 90a1p505-j9cs-8972-apbc-a447a0l1hqq0 55t2o426-x8ey-4753-kulw-l248f4n5sqx2 ANSI-Commercial x70jf709-0i3t-4052-7910-am236986o85n x23ij800-1x8o-1779-8372-rc394200d05i ANSI-Commercial 5ep0e863-6329-601l-w82y-840lm0676s4s 1yf7m986-3546-300a-p03r-587rl2038w7p ANSI-Commercial 14769jn3-n3w0-4l26-9ttz-mj5196255o0k 36201kh9-g1n9-6l36-6arm-mz4324095g2u ANSI-Commercial i03ez87l-99k2-0995-e730-o3k5319163is d21oa82a-81c3-5490-u999-a5y9609085zk ANSI-Commercial akm8lb5k-1v12-5325-4a00-e9954tzgi187 eee7us8n-6f16-8913-3x17-a9873jivq130 ANSI-Commercial m8[id number] l582a802-3969-4gr4-3200-44s268115w13 ANSI-Commercial [id number]-cngd-jg0987p5612k 2v779792-0oc4-6378-myus-hr6368u1329e ANSI-Commercial x634k779-h55y-368v-f132-6d1x5gvg013u w875j222-w19g-797k-c416-3l4q4zmw439e ANSI-Commercial 7126992c-g9y4-5y72-tl09-1nh875b42s14 2116175n-q1j9-0w46-mk31-9jf533g99k80 ANSI-Commercial 7058c700-usmk-78n3-g92p-w57j524b54p5 4736t646-wdcx-70h6-k57r-q40j710r82c9 ANSI-Commercial [id number]-027y-u8bi-83ews4b0to04 j7y27980-1w1w-369a-p7mk-42hve5d5uo12 ANSI-Commercial k2x3225l-448i-6266-1q1r-98ox674t00bw d6i8392b-065t-8927-8t6t-57jk333f93ie ANSI-Commercial rv811n10-6220-9e46-9cp8-911948r7tk7a yl037a71-7698-2f71-3hc3-651650w2or4o [facility]mr[facility] (O) [id number] Self [id number] ANSI-Commercial [id number] [id number]w5vuxw04h4 ANSI-Commercial 8pv976zl-3282-65zv-k0fq-4361y245x0z6 5ru924ys-9387-70zm-x9me-3307u462t9c1 LOVE CLAIM ADMIN WORK COMP [id number] ANSI-Commercial [id number]-h77q-3m67-137n-3s8j214al033 867i0m60-m11p-9u96-995r-1k5h950ud764 ANSI-Commercial 30tx5051-in0p-4t7s-t463-55f200zkn671 [id number]-es2g-6i4s-o941-22m895lfm393 UMR U [id number] Self [id number] [facility] [id number] Empl [id number] UMR U [id number] Self [id number] [facility] U [id number] Self [id number] [facility] [id number] SP [id number] [employer] (HMO) [id number] Se lf [id number] [employer] [id number] Self [id number] [employer] [id number] Self [id number] [employer] (H[employer]) [id number] Se lf [id number] [employer] [id number] SP [id number] [employer] COMM SELF [id number] S [id number] [employer] PPO O [id number] S [id number] [employer] COMM SELF [id number] S [id number] [employer]-DEW [id number] SP [id number] [employer]DEW [id number] SP [id number] [employer]W [id number] SP [id number] [employer] WC [id number] S [id number] [employer]W [id number] SP [id number] Problems, Conditions, and Diagnoses Code Display Name Description Problem Type Effective Dates Data Source(s) A60.02 25334261 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 Problem 11/24/2019 12: 00:00 AM EDT eCW1 ([facility]) Z71.1 [id number] Concern about STD in male without diagnos is Problem 11/20/2019 12:00:00 AM EDT eCW1 ([facility]) D68.51 [id number] Factor 5 Leiden mutation, heterozygous Pr oblem 05/05/2019 12:00:00 AM EDT eCW1 ([facility]) D68.51 [id number] Factor 5 Leiden mutation, heterozygous Pr oblem 05/05/2019 12:00:00 AM EDT eCW1 ([facility]) D75.1 [id number] Erythrocytosis Problem 04/21/2019 12:00:00 A M EDT eCW1 ([facility]) D75.1 [id number] Erythrocytosis Problem 04/21/2019 12:00:00 A M EDT eCW1 ([facility]) Surgeries/Procedures Procedure Description Date Indications Data Source(s) PROTHROMBIN TIME 06/16/2019 12:00:00 AM EDT eCW1 ([facility]) Results ID Date Data Source [id number] 02/19/2020 12:30:00 PM EST [place] Name Value Range Interpretation Code Description Data Melissa rce(s) Supporting Document(s) SARS coronavirus 2 RNA Detected [facility] This lab was ordered by [facility] and reported by [facility]. ID Date Data Source HSV 1/2 BY PCR 11/30/2019 03:29:17 AM EDT eCW1 ([facility]) Name Value Range Interpretation Code Description Data Melissa rce(s) Supporting Document(s) Negative HSV-1 DNA eCW1 ([facility]) Positive HSV-2 DNA eCW1 ([facility]) ID Date Data Source CBC with Differential 11/21/2019 08:04:01 AM EDT eCW1 ([facility]) Name Value Range Interpretation Code Description Data Melissa rce(s) Supporting Document(s) 5.13 eCW1 ([facility]) 4.9 eCW1 ([facility]) 16.0 eCW1 ([facility]) 47.0 eCW1 ([facility]) 31.2 eCW1 ([facility]) 91.6 eCW1 ([facility]) 34.0 eCW1 ([facility]) 12.3 eCW1 ([facility]) 12.5 eCW1 ([facility]) 124 eCW1 ([facility]) 68.5 eCW1 ([facility]) 0.8 eCW1 ([facility]) 15.0 eCW1 ([facility]) 2.8 eCW1 ([facility]) 3.4 eCW1 ([facility]) 0.7 eCW1 ([facility]) 0.6 eCW1 ([facility]) 0.0 eCW1 ([facility]) 0.1 eCW1 ([facility]) ID Date Data Source [id number] 11/21/2019 08:03:56 AM EDT eCW1 ([facility]) Name Value Range Interpretation Code Description Data Melissa rce(s) Supporting Document(s) eCW1 ([facility]) ID Date Data Source [id number] 11/21/2019 08:03:50 AM EDT eCW1 ([facility]) Name Value Range Interpretation Code Description Data Melissa rce(s) Supporting Document(s) Hemoglobin A1c/Hemoglobin.total in Blood 8.0 eCW1 ([facility]) ID Date Data Source HEPATITIS C ANTIBODY INDEX 11/21/2019 08:03:46 AM EDT eCW1 ( [facility]) Name Value Range Interpretation Code Description Data Melissa rce(s) Supporting Document(s) 0.1 eCW1 ([facility]) ID Date Data Source Comprehensive Metabolic Profile (CMP) 11/21/2019 08:03:43 AM EDT eCW1 ([facility]) Name Value Range Interpretation Code Description Data Melissa rce(s) Supporting Document(s) 127 eCW1 ([facility]) 139 eCW1 ([facility]) 1.12 eCW1 ([facility]) 18 eCW1 ([facility]) > 60.0 eCW1 ([facility]) 105 eCW1 ([facility]) 9.1 eCW1 ([facility]) 30 eCW1 ([facility]) 4.7 eCW1 ([facility]) 103 eCW1 ([facility]) 41 eCW1 ([facility]) 25 eCW1 ([facility]) 1.1 eCW1 ([facility]) 1.3 eCW1 ([facility]) 6.8 eCW1 ([facility]) 3.8 eCW1 ([facility]) ID Date Data Source PSA SCREENING 11/21/2019 08:03:37 AM EDT eCW1 ([facility]) Name Value Range Interpretation Code Description Data Melissa rce(s) Supporting Document(s) 1.82 eCW1 ([facility]) ID Date Data Source SYPHILIS ANTIBODY (RPR SCREEN) 11/21/2019 08:03:34 AM EDT eC W1 ([facility]) Name Value Range Interpretation Code Description Data Melissa rce(s) Supporting Document(s) NONREACTIVE eCW1 ([facility]) ID Date Data Source HEPATITIS B SURFACE ANTIGEN 11/21/2019 08:03:31 AM EDT eCW1 ([facility]) Name Value Range Interpretation Code Description Data Melissa rce(s) Supporting Document(s) NEGATIVE eCW1 ([facility]) ID Date Data Source [id number] 11/17/2019 02:00:00 PM EDT MEDENT ([facility]) Name Value Range Interpretation Code Description Data Melissa rce(s) Supporting Document(s) Bacteria identified in Urine by Culture Laboratory test result MEDENT ([facility], [facility]) FULL REPORT IN LAB NOTES (eCW and [facility] ). NO GROWTH ID Date Data Source PT-INR Fingerstick 11/16/2019 05:58:35 AM EDT eCW1 ([facility]) Name Value Range Interpretation Code Description Data Melissa rce(s) Supporting Document(s) 2.9 INR eCW1 ([facility]) DW Verified Patient's Name and DO B eCW1 ([facility]) 6mg daily Current Dose 1 eCW1 ([facility]) Current Dose 2 eCW1 ([facility]) 2-3 Internal QC Acceptable (Y/N) e CW1 ([facility]) no Recent Bleeding eCW1 ([facility]) DVT Indication for Anticoagulation eCW1 ([facility]) 6mg Tab Strength eCW1 ([facility]) Education Given (Date / Initia ls) eCW1 ([facility]) Therapeutic Range eCW1 ([facility]) 6mg daily New Dose 1 eCW1 ([facility]) New Dose 2 eCW1 ([facility]) - eCW1 ([facility]) 2 weeks Next PT-INR eCW1 ([facility]) Weekly Total eCW1 ([facility]) ID Date Data Source [id number] 06/13/2019 12:55:00 PM EDT [facility] Name Value Range Interpretation Code Description Data Melissa rce(s) Supporting Document(s) SARS CORONAVIRUS 2 RNA [facility] This lab was ordered by [facility] and reported by [facility]. ID Date Data Source PT & APTT 05/08/2019 04:24:03 AM EDT eCW1 ([facility]) Name Value Range Interpretation Code Description Data Melissa rce(s) Supporting Document(s) 2.30 INR eCW1 ([facility]) 25.1 PROTHROMBIN TIME eCW1 ([facility]) 38.7 PARTIAL THROMBOPLASTIN TIME eC W1 ([facility]) Procedure Social History Code Duration Value Status Description Data Source(s ) Smoking 02/13/2020 12:00:00 AM EST Never Smoker completed Never S moker eCW1 ([facility]) Smoking 02/13/2020 12:00:00 AM EST Never Smoker completed Never S moker eCW1 ([facility]) Smoking 12/22/2019 12:00:00 AM EST Never Smoker completed Never S moker eCW1 ([facility]) Smoking 12/22/2019 12:00:00 AM EST Never Smoker completed Never S moker eCW1 ([facility]) Smoking 12/22/2019 12:00:00 AM EST Never Smoker completed Never S moker eCW1 ([facility]) Smoking 12/22/2019 12:00:00 AM EST Never Smoker completed Never S moker eCW1 ([facility]) Smoking 12/22/2019 12:00:00 AM EST Never Smoker completed Never S moker eCW1 ([facility]) Smoking 12/22/2019 12:00:00 AM EST Never Smoker completed Never S moker eCW1 ([facility]) Smoking 12/15/2019 12:00:00 AM EST Never Smoker completed Never S moker eCW1 ([facility]) Smoking 12/15/2019 12:00:00 AM EST Never Smoker completed Never S moker eCW1 ([facility]) Smoking 11/24/2019 12:00:00 AM EDT Never Smoker completed Never S moker eCW1 ([facility]) Smoking 11/24/2019 12:00:00 AM EDT Never Smoker completed Never S moker eCW1 ([facility]) Smoking 11/24/2019 12:00:00 AM EDT Never Smoker completed Never S moker eCW1 ([facility]) Smoking 11/24/2019 12:00:00 AM EDT Never Smoker completed Never S moker eCW1 ([facility]) Smoking 11/24/2019 12:00:00 AM EDT Never Smoker completed Never S moker eCW1 ([facility]) Smoking 11/24/2019 12:00:00 AM EDT Never Smoker completed Never S moker eCW1 ([facility]) Smoking 11/21/2019 12:00:00 AM EDT Patient has never smoked co mpleted Patient has never smoked MEDENT ([facility], [facility]) Smoking 08/25/2019 12:00:00 AM EDT Never Smoker completed Never S moker eCW1 ([facility]) Smoking 08/25/2019 12:00:00 AM EDT Never Smoker completed Never S moker eCW1 ([facility]) Smoking 08/25/2019 12:00:00 AM EDT Never Smoker completed Never S moker eCW1 ([facility]) Smoking 08/25/2019 12:00:00 AM EDT Never Smoker completed Never S moker eCW1 ([facility]) Smoking 07/21/2019 12:00:00 AM EDT Never Smoker completed Never S moker eCW1 ([facility]) Vital Signs ID Date Data Source UNK Name Value Range Interpretation Code Description Data Source(s) Diastolic blood pressure 72 mm[Hg] 72 mm[Hg] eCW1 ([facility]) Systolic blood pressure 124 mm[Hg] 124 mm[Hg] e CW1 ([facility]) Body temperature 98.1 [degF] 98.1 [degF] eCW1 ( [facility]) Respiratory rate 18 /min 18 /min eCW1 ([facility]) Heart rate 108 /min 108 /min eCW1 ([facility]) Body mass index (BMI) [Ratio] 34.61 kg/m2 34.61 kg/m2 eCW1 ([facility]) Body height 69 [in_i] 69 [in_i] eCW1 ([facility]) Body weight 234.4 [lb_av] 234.4 [lb_av] eCW1 ([facility]) Diastolic blood pressure 78 mm[Hg] 78 mm[Hg] eCW1 ([facility]) Systolic blood pressure 124 mm[Hg] 124 mm[Hg] e CW1 ([facility]) Body temperature 98 [degF] 98 [degF] eCW1 ([facility]) Respiratory rate 18 /min 18 /min eCW1 ([facility]) Heart rate 87 /min 87 /min eCW1 ([facility]) Body mass index (BMI) [Ratio] 33.96 kg/m2 33.96 kg/m2 eCW1 ([facility]) Body height 69 [in_i] 69 [in_i] eCW1 ([facility]) Body weight 230 [lb_av] 230 [lb_av] eCW1 ([facility]) Diastolic blood pressure 74 mm[Hg] 74 mm[Hg] eCW1 ([facility]) Systolic blood pressure 120 mm[Hg] 120 mm[Hg] e CW1 ([facility]) Body temperature 98 [degF] 98 [degF] eCW1 ([facility]) Respiratory rate 16 /min 16 /min eCW1 ([facility]) Heart rate 88 /min 88 /min eCW1 ([facility]) Body mass index (BMI) [Ratio] 33.96 kg/m2 33.96 kg/m2 eCW1 ([facility]) Body height 69 [in_i] 69 [in_i] eCW1 ([facility]) Body weight 230 [lb_av] 230 [lb_av] eCW1 ([facility]) Diastolic blood pressure 72 mm[Hg] 72 mm[Hg] eCW1 ([facility]) Systolic blood pressure 112 mm[Hg] 112 mm[Hg] e CW1 ([facility]) Body temperature 97.5 [degF] 97.5 [degF] eCW1 ( [facility]) Respiratory rate 18 /min 18 /min eCW1 ([facility]) Heart rate 99 /min 99 /min eCW1 ([facility]) Body mass index (BMI) [Ratio] 33.08 kg/m2 33.08 kg/m2 eCW1 ([facility]) Body height 69 [in_i] 69 [in_i] eCW1 ([facility]) Body weight 224.0 [lb_av] 224.0 [lb_av] eCW1 ([facility]) Systolic blood pressure 116 mm[Hg] 116 mm[Hg] M EDENT ([facility]) Body mass index (BMI) [Ratio] 33.4 kg/m2 33.4 k g/m2 MEDENT ([facility]) Body height 68 [in_i] 68 [in_i] MEDENT ([facility]) 5'8" Body weight 220.00 [lb_av] 220.00 [lb_av] MEDEN T ([facility]) Body temperature 98.3 [degF] 98.3 [degF] MEDENT ([facility]) Oxygen saturation in Arterial blood by Pulse oximetry 97 % 97 % MEDENT ([facility], [facility]) Respiratory rate 14 /min 14 /min MEDENT ( [facility]) Heart rate 111 /min 111 /min MEDENT ([facility], [facility]) Diastolic blood pressure 82 mm[Hg] 82 mm[Hg] MEDENT ([facility], [facility]) Body mass index (BMI) [Ratio] 34.5 kg/m2 34.5 k g/m2 MEDENT ([facility], [facility]) Body height 67 [in_i] 67 [in_i] MEDENT ([facility], [facility]) 5'7" Body weight 220.00 [lb_av] 220.00 [lb_av] MEDEN T ([facility], [facility]) Body temperature 98.1 [degF] 98.1 [degF] MEDENT ([facility], [facility]) Oxygen saturation in Arterial blood by Pulse oximetry 98 % 98 % MEDENT ([facility], [facility]) Respiratory rate 14 /min 14 /min MEDENT ( [facility], [facility]) Heart rate 91 /min 91 /min MEDENT ([facility], [facility]) Diastolic blood pressure 84 mm[Hg] 84 mm[Hg] MEDENT ([facility], [facility]) Systolic blood pressure 123 mm[Hg] 123 mm[Hg] M EDENT ([facility], [facility]) Diastolic blood pressure 80 mm[Hg] 80 mm[Hg] eCW1 ([facility]) Systolic blood pressure 110 mm[Hg] 110 mm[Hg] e CW1 ([facility]) Body temperature 97.6 [degF] 97.6 [degF] eCW1 ( [facility]) Respiratory rate 20 /min 20 /min eCW1 ([facility]) Heart rate 88 /min 88 /min eCW1 ([facility]) Body mass index (BMI) [Ratio] 32.78 kg/m2 32.78 kg/m2 eCW1 ([facility]) Body height 69 [in_i] 69 [in_i] eCW1 ([facility]) Body weight 222 [lb_av] 222 [lb_av] eCW1 ([facility]) Diastolic blood pressure 68 mm[Hg] 68 mm[Hg] eCW1 ([facility]) Systolic blood pressure 104 mm[Hg] 104 mm[Hg] e CW1 ([facility]) Body temperature 98.1 [degF] 98.1 [degF] eCW1 ( [facility]) Respiratory rate 17 /min 17 /min eCW1 ([facility]) Heart rate 84 /min 84 /min eCW1 ([facility]) Body mass index (BMI) [Ratio] 33.64 kg/m2 33.64 kg/m2 eCW1 ([facility]) Body height 69 [in_i] 69 [in_i] eCW1 ([facility]) Body weight 227.8 [lb_av] 227.8 [lb_av] eCW1 ([facility]) Diastolic blood pressure 68 mm[Hg] 68 mm[Hg] eCW1 ([facility]) Systolic blood pressure 112 mm[Hg] 112 mm[Hg] e CW1 ([facility]) Body temperature 97.7 [degF] 97.7 [degF] eCW1 ( [facility]) Respiratory rate 17 /min 17 /min eCW1 ([facility]) Heart rate 102 /min 102 /min eCW1 ([facility]) Body mass index (BMI) [Ratio] 34.37 kg/m2 34.37 kg/m2 eCW1 ([facility]) Body height 69 [in_i] 69 [in_i] eCW1 ([facility]) Body weight 232.8 [lb_av] 232.8 [lb_av] eCW1 ([facility]) Diastolic blood pressure 78 mm[Hg] 78 mm[Hg] eCW1 ([facility]) Systolic blood pressure 124 mm[Hg] 124 mm[Hg] e CW1 ([facility]) Body temperature 96.6 [degF] 96.6 [degF] eCW1 ( [facility]) Respiratory rate 18 /min 18 /min eCW1 ([facility]) Heart rate 100 /min 100 /min eCW1 ([facility]) Body mass index (BMI) [Ratio] 34.05 kg/m2 34.05 kg/m2 eCW1 ([facility]) Body height 69 [in_us] 69 [in_us] eCW1 ([facility]) Body weight Measured 230.6 [lb_av] 230.6 [lb_av ] eCW1 ([facility]) Diastolic blood pressure 78 mm[Hg] 78 mm[Hg] eCW1 ([facility]) Systolic blood pressure 122 mm[Hg] 122 mm[Hg] e CW1 ([facility]) Body temperature 97.5 [degF] 97.5 [degF] eCW1 ( [facility]) Respiratory rate 18 /min 18 /min eCW1 ([facility]) Heart rate 99 /min 99 /min eCW1 ([facility]) Body mass index (BMI) [Ratio] 33.43 kg/m2 33.43 kg/m2 eCW1 ([facility]) Body height 69 [in_us] 69 [in_us] eCW1 ([facility]) Body weight Measured 226.4 [lb_av] 226.4 [lb_av ] eCW1 ([facility]) Diastolic blood pressure 80 mm[Hg] 80 mm[Hg] eCW1 ([facility]) Systolic blood pressure 122 mm[Hg] 122 mm[Hg] e CW1 ([facility]) Body temperature 97.8 [degF] 97.8 [degF] eCW1 ( [facility]) Respiratory rate 20 /min 20 /min eCW1 ([facility]) Heart rate 98 /min 98 /min eCW1 ([facility]) Body mass index (BMI) [Ratio] 33.64 kg/m2 33.64 kg/m2 W1 ([facility]) Body height 69 [in_i] 69 [in_i] eCW1 ([facility]) Body weight 227.8 [lb_av] 227.8 [lb_av] eCW1 ([facility]) Diastolic blood pressure 80 mm[Hg] 80 mm[Hg] eCW1 ([facility]) Systolic blood pressure 122 mm[Hg] 122 mm[Hg] e CW1 ([facility]) Body temperature 97.8 [degF] 97.8 [degF] eCW1 ( [facility]) Respiratory rate 20 /min 20 /min eCW1 ([facility]) Heart rate 98 /min 98 /min eCW1 ([facility]) Body mass index (BMI) [Ratio] 33.64 kg/m2 33.64 kg/m2 eCW1 ([facility]) Body height 69 [in_us] 69 [in_us] eCW1 ([facility]) Body weight Measured 227.8 [lb_av] 227.8 [lb_av ] eCW1 ([facility]) Heart rate 104 /min 104 /min eCW1 ([facility]) Body mass index (BMI) [Ratio] 33.61 kg/m2 33.61 kg/m2 eCW1 ([facility]) Body height 69 [in_us] 69 [in_us] eCW1 ([facility]) Body weight Measured 227.6 [lb_av] 227.6 [lb_av ] eCW1 ([facility]) Diastolic blood pressure 72 mm[Hg] 72 mm[Hg] eCW1 ([facility]) Systolic blood pressure 120 mm[Hg] 120 mm[Hg] e CW1 ([facility]) Body temperature 98.0 [degF] 98.0 [degF] eCW1 ( [facility]) Respiratory rate 20 /min 20 /min eCW1 ([facility]) Diastolic blood pressure 78 mm[Hg] 78 mm[Hg] eCW1 ([facility]) Systolic blood pressure 124 mm[Hg] 124 mm[Hg] e CW1 ([facility]) Body temperature 97.7 [degF] 97.7 [degF] eCW1 ( [facility]) Respiratory rate 18 /min 18 /min eCW1 ([facility]) Heart rate 97 /min 97 /min eCW1 ([facility]) Body mass index (BMI) [Ratio] 33.13 kg/m2 33.13 kg/m2 eCW1 ([facility]) Body height 69 [in_us] 69 [in_us] eCW1 ([facility]) Body weight Measured 224.4 [lb_av] 224.4 [lb_av ] eCW1 ([facility]) Diastolic blood pressure 64 mm[Hg] 64 mm[Hg] eCW1 ([facility]) Systolic blood pressure 120 mm[Hg] 120 mm[Hg] e CW1 ([facility]) Body temperature 97.4 [degF] 97.4 [degF] eCW1 ( [facility]) Respiratory rate 17 /min 17 /min eCW1 ([facility]) Heart rate 83 /min 83 /min eCW1 ([facility]) Body mass index (BMI) [Ratio] 33.34 kg/m2 33.34 kg/m2 eCW1 ([facility]) Body height 69 [in_us] 69 [in_us] eCW1 ([facility]) Body weight Measured 225.8 [lb_av] 225.8 [lb_av ] eCW1 ([facility]) Diastolic blood pressure 70 mm[Hg] 70 mm[Hg] eCW1 ([facility]) Systolic blood pressure 112 mm[Hg] 112 mm[Hg] e CW1 ([facility]) Body temperature 97.2 [degF] 97.2 [degF] eCW1 ( [facility]) Respiratory rate 18 /min 18 /min eCW1 ([facility]) Heart rate 96 /min 96 /min eCW1 ([facility]) Body mass index (BMI) [Ratio] 34.05 kg/m2 34.05 kg/m2 W1 ([facility]) Body height 69 [in_us] 69 [in_us] eCW1 ([facility]) Body weight Measured 230.6 [lb_av] 230.6 [lb_av ] eCW1 ([facility]) Patient Treatment Plan of Care Planned Activity Planned Date Details Description Data Source (s) valacyclovir 1000 MG Oral Tablet [Valtrex] 02/13/2020 12:00:[address] eCW1 ([facility]) Trulicity 3 MG/0.5ML 02/13/2020 12:00:00 AM EST eCW1 ([facility]) valacyclovir 1000 MG Oral Tablet [Valtrex] 02/13/2020 12:00:[address] eCW1 ([facility]) Trulicity 3 MG/0.5ML 02/13/2020 12:00:00 AM EST eCW1 ([facility]) Levofloxacin 500 MG Oral Tablet 11/24/2019 12:00:00 AM EDT eCW1 ([facility]) valacyclovir 1000 MG Oral Tablet [Valtrex] 11/24/2019 12:00:00 AM E DT eCW1 ([facility]) Levofloxacin 500 MG Oral Tablet 11/24/2019 12:00:00 AM EDT eCW1 ([facility]) valacyclovir 1000 MG Oral Tablet [Valtrex] 11/24/2019 12:00:00 AM E DT eCW1 ([facility]) Levofloxacin 500 MG Oral Tablet 11/24/2019 12:00:00 AM EDT eCW1 ([facility]) valacyclovir 1000 MG Oral Tablet [Valtrex] 11/24/2019 12:00:00 AM E DT eCW1 ([facility]) Levofloxacin 500 MG Oral Tablet 11/24/2019 12:00:00 AM EDT eCW1 ([facility]) valacyclovir 1000 MG Oral Tablet [Valtrex] 11/24/2019 12:00:00 AM E DT eCW1 ([facility]) Levofloxacin 500 MG Oral Tablet 11/24/2019 12:00:00 AM EDT eCW1 ([facility]) valacyclovir 1000 MG Oral Tablet [Valtrex] 11/24/2019 12:00:00 AM E DT eCW1 ([facility]) Levofloxacin 500 MG Oral Tablet 11/24/2019 12:00:00 AM EDT eCW1 ([facility]) valacyclovir 1000 MG Oral Tablet [Valtrex] 11/24/2019 12:00:00 AM E DT eCW1 ([facility]) sildenafil 100 MG Oral Tablet 06/16/2019 12:00:00 AM EDT eCW1 ([facility]) Azithromycin 250 MG Oral Tablet 05/18/2019 12:00:00 AM EDT eCW1 ([facility]) Azithromycin 250 MG Oral Tablet 05/18/2019 12:00:00 AM EDT eCW1 ([facility]) Levofloxacin 500 MG Oral Tablet 05/05/2019 12:00:00 AM EDT eCW1 ([facility]) Amoxicillin 500 MG Oral Capsule 04/21/2019 12:00:00 AM EDT eCW1 ([facility]) [employer] System - 01/25/2019 12:00:00 AM EST eCW1 ([facility]) [employer] System - 01/25/2019 12:00:00 AM EST eCW1 ([facility]) [employer] System - 01/25/2019 12:00:00 AM EST eCW1 ([facility]) [employer] System - 01/25/2019 12:00:00 AM EST eCW1 ([facility]) [employer] System - 01/25/2019 12:00:00 AM EST eCW1 ([facility]) [employer] System - 01/25/2019 12:00:00 AM EST eCW1 ([facility]) [employer] S[employer] System - 01/25/2019 12:00:00 AM EST eCW1 ([facility]) [employer] J[employer] Sensor System - 01/25/2019 12:00:00 AM EST eCW1 ([facility]) [employer] Jd [place] - 01/25/2019 12:00:00 AM EST eCW1 ([facility])
[2020-02-23 23:30] VITALS: BP 126/80
== END 2020-02-23 23:48 | disposition home or self-care (01) ==
LOC: M ED 17:55
DX: U07.1 COVID-19 (principal); E11.9 Type 2 diabetes mellitus without complications; G47.33 Obstructive sleep apnea (adult) (pediatric); Z86.711 Personal history of pulmonary embolism; Z86.718 Personal history of other venous thrombosis and embolism; Z79.01 Long term (current) use of anticoagulants; Z79.84 Long term (current) use of oral hypoglycemic drugs; Z79.899 Other long term (current) drug therapy; Z88.5 Allergy status to narcotic agent; Z88.8 Allergy status to other drugs, medicaments and biological substances

== ENCOUNTER 2020-02-23 21:58 | Outpatient (CLI) | payer OTHER ==
[~2020-02-23 21:58] MED LIST changes: +DULA3PEN
[2020-02-23] MEDS ORDERED: NS 1,000 ML IV SCH (22:48)
[2020-02-23] MEDS ORDERED: EPINEPHrine INJ 1 MG/ML 1ML AMP IM PRN (23:00)
[2020-02-23] MEDS ORDERED: BAMLANIVIMAB 700 MG in NS 250 ML IV ONE (23:00)
[2020-02-23] MEDS ORDERED: ALBUTEROL 90 MCG/ACT 8GM HFA INHALER INH PRN (23:00)
[2020-02-23] MEDS ORDERED: diphenhydrAMINE 50MG/ML VIAL (J1200) IV PRN (23:00)
[2020-02-23] MEDS ORDERED: ALBUTEROL SULFATE 2.5 MG/0.5 ML INH NEB SOLN INH PRN (23:00)
[2020-02-23] MEDS ORDERED: methylPREDNISolone 125MG 2ML VIAL IV PRN (23:00)
[2020-02-23 23:13] VITALS: BP 121/84
[2020-02-23] MEDS ORDERED: ACETAMINOPHEN 500 MG TAB PO PRN (23:30)
[2020-02-23 23:36] VITALS: BP 125/79
[2020-02-24 00:18] VITALS: BP 129/77
[2020-02-24 01:02] VITALS: BP 122/75
[2020-02-24 01:03] VITALS: BP 122/75
[2020-02-24 01:34] VITALS: BP 118/71
[2020-02-24 02:15] VITALS: BP 117/74
--- NOTE | 2020-02-24 07:06 | CR.PDOC ---
General Date of Consultation: Feb 23, 2020 Referring Provider: Laurita Lynch MD Primary Care Physician: Trent Mari M.D. Attending Physician: Adryan Fagan MD Consultation REASON FOR CONSULTATION/CHIEF COMPLAINT: COVID 19 with mild symptoms. HISTORY OF PRESENT ILLNESS: I was consulted through the emergency department to speak to Mr. Fields regarding a bamlanivimab infusion. He has laboratory confirmed COVID 19 but does not have severe symptoms requiring hospitalization. ALLERGIES: Please see below. HOME MEDICATIONS: Please see below. RISK FACTORS: 1. Male. 2. BMI greater than 30. 3. Diabetes mellitus type 2. PHYSICAL EXAMINATION: VITAL SIGNS: Please see below. GENERAL APPEARANCE: He was resting comfortably in an ER stretcher when I asked that the room. In no acute distress. PSYCHIATRIC: Affect is full and open 3. Judgment intact. LABORATORY DATA: Please see below. ASSESSMENT/PLAN: 1. COVID 19, mild. I discussed the risks and benefits of a bamlanivimab infusion with him in detail. After this discussion we documented his consent to the infusion. I put my orders in for this to be done on outpatient basis. Vital Signs/I&O Vital Signs Date Time Temp Pulse Resp B/P (MAP) Pulse Ox O2 Delivery O2 Flow Rate FiO2 02/24/20 02:15 100.2 104 18 117/74 (88) 95 Room Air I&O- Last 24 Hours up to 6 AM 02/24/20 06:00 Intake Total 295 ml Balance 295 ml Allergies Coded Allergies: atorvastatin (Verified Allergy, Unknown, 05/12/18) morphine (Verified Allergy, Unknown, 05/12/18) Home Medications Scheduled Canagliflozin (Invokana) 300 Mg Tab, 300 MG PO DAILY for 30 Days, #30 (Reported) Ergocalciferol (Vitamin D2) (Vitamin D2) 50,000 Unit Cap, 1 CAP PO Q7D for 28 Days, #4 (Reported) Esomeprazole Magnesium (Nexium) 40 Mg Cap, 1 CAP PO DAILY for 30 Days, #30 (Reported) Ezetimibe (Zetia) 10 Mg Tab, 10 MG PO DAILY for 30 Days, #30 (Reported) Metformin HCl (Metformin HCl ER) 750 Mg Tab, 750 MG PO DAILY for 30 Days, #30 (Reported) Rosuvastatin Calcium (Crestor) 40 Mg Tab, 40 MG PO DAILY for 30 Days, #30 (Reported) Tizanidine HCl (Tizanidine HCl) 2 Mg Cap, 2 MG PO TID for 30 Days, #90 (Reported) Warfarin Sodium (Coumadin) 6 Mg Tab, 1 TAB PO DAILY for 30 Days, #30 (Reported) Scheduled PRN Albuterol Sulfate (Proair Hfa) 108 Mcg/Act Aer, Unknown Dose INH Q4-6HP PRN for wheezing for 21 Days, #1 (Reported) Eszopiclone (Eszopiclone) 3 Mg Tab, 3 MG PO QPMP PRN for sleep for 30 Days, #30 (Reported) Miscellaneous Medications Dulaglutide (Trulicity) 3 Mg/0.5 Ml Pen.injctr, (Reported) Sildenafil Citrate (Sildenafil Citrate) 100 Mg Tab, 100 MG PO, (Reported) [dulaglutide] , (Reported) Adryan Fagan MD Feb 24, 2020 07:06
== END 2020-02-24 02:29 | disposition home or self-care (01) ==
LOC: M OPCLI4 21:58
PROVIDERS: ATTEND Family Medicine
DX: U07.1 COVID-19 (principal); Z88.6 Allergy status to analgesic agent

== ENCOUNTER → 2020-10-19 | Outpatient (CLI) | payer OTHER ==
[~2020-10-19] MED LIST changes: -DOXY100C PO; +DOXY100C3 PO; +ERGO500029 PO; +WARF-60 PO
== END ==
LOC: M LABSMTC 10:39
PROVIDERS: ATTEND Anesthesiology
DX: Z01.812 Encounter for preprocedural laboratory examination (principal); Z20.822 Contact with and (suspected) exposure to COVID-19

== ENCOUNTER 2020-10-24 06:25 | Day surgery (SDC) | payer OTHER ==
[~2020-10-24] VITALS: Ht 170.2 cm; Wt 101.2 kg
[~2020-10-24 06:25] MED LIST changes: +NS 1,000 ML IV ONE
[2020-10-24] MEDS ORDERED: propofoL 200 MG/20 ML VIAL As Ordered ONE ×3 (07:18→07:53)
[2020-10-24] MEDS ORDERED: LIDOCAINE 2% 100MG/5ML SDV (FOR ANES.) As Ordered ONE (07:18)
[2020-10-24] MEDS ORDERED: GLUCAGON INJ 1MG VIAL As Ordered ONE (07:49)
[2020-10-24 08:15] VITALS: BP 108/65
== END 2020-10-24 08:35 | disposition home or self-care (01) ==
LOC: M OPP 06:25
PROVIDERS: ATTEND Internal Medicine Gastroenterology
DX: Z12.11 Encounter for screening for malignant neoplasm of colon (principal); Z80.0 Family history of malignant neoplasm of digestive organs; K63.5 Polyp of colon; K64.8 Other hemorrhoids; Z79.01 Long term (current) use of anticoagulants; Z79.84 Long term (current) use of oral hypoglycemic drugs; Z79.899 Other long term (current) drug therapy; Z88.5 Allergy status to narcotic agent; Z88.8 Allergy status to other drugs, medicaments and biological substances; Z86.718 Personal history of other venous thrombosis and embolism
CPT/HCPCS: 45385; 88305; J1610

== ENCOUNTER → 2020-11-15 | Outpatient (CLI) | payer OTHER ==
[~2020-11-15] MED LIST changes: -NS 1,000 ML IV ONE
--- NOTE | 2020-11-15 13:39 | REP ---
INDICATION: LUMBAR MYELOPATHY COMPARISON: None. TECHNIQUE: AP, lateral, flexion/extension, bilateral oblique, and coned-down views. FINDINGS: Alignment and lordosis is maintained. The vertebral bodies including transverse process and spinous processes are intact and normal. There is no evidence for acute fracture / compression injury or subluxation. Oblique views suggest L5 spondylolysis without spondylolisthesis. Degenerative changes include endplate sclerosis, hypertrophic facet changes and disc space narrowing primarily L5-S1. Similar degenerative changes also identified at T12-L1. IMPRESSION: 1. No acute fracture/compression injury or subluxation. 2. 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 <Electronically signed by Chapito Bowman > 11/15/20 0165
== END ==
LOC: M WUC 13:03
PROVIDERS: ATTEND Family Medicine
DX: M51.37 Other intervertebral disc degeneration, lumbosacral region (principal)

== ENCOUNTER → 2021-01-28 | Outpatient (CLI) | payer OTHER ==
[2021-01-28 13:36] LABS: INR 1.96; PROTHROMBIN TIME 22.8 SECONDS (12.7-14.5)
[2021-01-28 13:41] LABS: HEMOGLOBIN A1c 7.5 %
[2021-01-28 13:52] LABS: ALBUMIN 4.1 GM/DL (3.2-5.2); ALT/SGPT 47 U/L (12-78); BLOOD UREA NITROGEN 23 MG/DL (7-18); CALCIUM LEVEL 8.9 MG/DL (8.5-10.1); CARBON DIOXIDE LEVEL 24 MEQ/L (21-32); CHLORIDE LEVEL 108 MEQ/L (98-107); CHOLESTEROL LEVEL 140 MG/DL (<200); CHOLESTEROL RISK RATIO 3.255 (<5); CREATININE FOR GFR 0.91 MG/DL (0.70-1.30); GLOMERULAR FILTRATION RATE > 60.0 (>56); GLUCOSE, FASTING 237 MG/DL (70-100); HDL CHOLESTEROL 43 MG/DL (>40); LDL CHOLESTEROL 49 MG/DL (<100); NON-HDL-C 97 MG/DL; POTASSIUM SERUM 4.6 MEQ/L (3.5-5.1); SODIUM LEVEL 138 MEQ/L (136-145); THYROID STIMULATING HORMONE 0.783 uIU/ML (0.358-3.740); TOTAL PROTEIN 6.7 GM/DL (6.4-8.2); TRIGLYCERIDES LEVEL 240 MG/DL (<150)
[2021-01-28 14:01] LABS: CREATININE, URINE 35.6 MG/DL; MALB URINE SIEMENS 65.5 MG/L; MAU/CREAT RATIO 183.9 MCG/MG (0.0-30.0)
== END ==
LOC: M PLALAB 11:15
PROVIDERS: ATTEND Family Medicine
DX: E11.8 Type 2 diabetes mellitus with unspecified complications (principal)
CPT/HCPCS: 36415; 80053; 80061; 82043; 83036; 83525; 84439; 84443; 85610; 85730; G0103

== ENCOUNTER → 2021-05-29 | Outpatient (CLI) | payer OTHER ==
[2021-05-29 10:36] LABS: INR 1.92; PROTHROMBIN TIME 22.4 SECONDS (12.7-14.5)
== END ==
LOC: M PLALAB 09:19
PROVIDERS: ATTEND Family Medicine
DX: I82.409 Acute embolism and thrombosis of unspecified deep veins of unspecified lower extremity (principal)

== ENCOUNTER → 2021-10-02 | Outpatient (REF) | payer OTHER ==
[2021-10-02 16:43] LABS: BASO % 0.6 % (0.0-1.0); EOS # 0.2 10^3/uL (0.0-0.5); EOS % 2.9 % (0.0-3.0); HEMATOCRIT 48.7 % (42.0-52.0); HEMOGLOBIN 16.8 g/dl (13.5-17.5); LYMPH # 1.5 10^3/uL (1.5-5.0); LYMPH % 22.4 % (24.0-44.0); MEAN CORPUSCULAR HEMOGLOBIN 32.5 pg (27.0-33.0); MEAN CORPUSCULAR HGB CONC 34.5 g/dl (32.0-36.5); MEAN CORPUSCULAR VOLUME 94.2 fl (80.0-96.0); MONO # 0.6 10^3/uL (0.0-0.8); MONO % 9.1 % (2.0-8.0); NEUTROPHILS # 4.2 10^3/uL (1.5-8.5); NEUTROPHILS % 64.7 % (36.0-66.0); PLATELET COUNT, AUTOMATED 146 10^3/uL (150-450); RED BLOOD COUNT 5.17 10^6/uL (4.30-6.10); WHITE BLOOD COUNT 6.5 10^3/uL (4.0-10.0)
[2021-10-02 16:55] LABS: INR 1.73; PROTHROMBIN TIME 20.7 SECONDS (12.7-14.5)
[2021-10-02 17:24] LABS: HEMOGLOBIN A1c 8.2 %
[2021-10-02 17:36] LABS: ALBUMIN 4.1 GM/DL (3.2-5.2); ALT/SGPT 32 U/L (12-78); BILIRUBIN,TOTAL 1.1 MG/DL (0.2-1.0); BLOOD UREA NITROGEN 22 MG/DL (7-18); CALCIUM LEVEL 9.3 MG/DL (8.5-10.1); CARBON DIOXIDE LEVEL 25 MEQ/L (21-32); CHLORIDE LEVEL 108 MEQ/L (98-107); CREATININE FOR GFR 1.08 MG/DL (0.70-1.30); FERRITIN 132 NG/ML (26-388); FREE T4 0.88 NG/DL (0.76-1.46); GLOMERULAR FILTRATION RATE > 60.0 (>56); GLUCOSE, FASTING 130 MG/DL (70-100); POTASSIUM SERUM 4.5 MEQ/L (3.5-5.1); SODIUM LEVEL 139 MEQ/L (136-145); TOTAL PROTEIN 6.7 GM/DL (6.4-8.2)
[2021-10-02 18:07] LABS: TOTAL 25(OH) VITAMIN D 88.4 NG/ML (30.0-100.0)
[2021-10-02 18:08] LABS: PTH INTACT 65.1 PG/ML (18.5-88.0)
== END ==
LOC: M WUC 16:08
PROVIDERS: ATTEND Family Medicine
DX: E55.9 Vitamin D deficiency, unspecified (principal); E11.8 Type 2 diabetes mellitus with unspecified complications; D75.1 Secondary polycythemia; Z86.711 Personal history of pulmonary embolism

== ENCOUNTER → 2021-10-21 | Outpatient (REF) | payer OTHER | LOC: M SFHCPLAZ 16:20 | PROVIDERS: ATTEND Physician Assistant | DX: Z79.01 Long term (current) use of anticoagulants (principal); Z53.8 Procedure and treatment not carried out for other reasons ==

== ENCOUNTER → 2022-02-09 | Outpatient (CLI) | payer OTHER ==
[2022-02-09 13:36] LABS: BASO # 0.1 10^3/uL (0.0-0.2); BASO % 0.8 % (0.0-1.0); EOS # 0.3 10^3/uL (0.0-0.5); EOS % 3.9 % (0.0-3.0); HEMATOCRIT 49.5 % (42.0-52.0); LYMPH # 1.4 10^3/uL (1.5-5.0); LYMPH % 21.6 % (24.0-44.0); MEAN CORPUSCULAR HEMOGLOBIN 31.7 pg (27.0-33.0); MEAN CORPUSCULAR HGB CONC 34.3 g/dl (32.0-36.5); MEAN CORPUSCULAR VOLUME 92.4 fl (80.0-96.0); MONO # 0.6 10^3/uL (0.0-0.8); MONO % 9.5 % (2.0-8.0); NEUTROPHILS # 4.1 10^3/uL (1.5-8.5); NEUTROPHILS % 63.9 % (36.0-66.0); PLATELET COUNT, AUTOMATED 148 10^3/uL (150-450); RED BLOOD COUNT 5.36 10^6/uL (4.30-6.10); WHITE BLOOD COUNT 6.4 10^3/uL (4.0-10.0)
[2022-02-09 13:53] LABS: INR 1.9; PROTHROMBIN TIME 22.1 SECONDS (12.5-14.5)
[2022-02-09 14:00] LABS: CREATININE, URINE 22.3 MG/DL; MAU/CREAT RATIO 152.4 MCG/MG (0.0-30.0)
[2022-02-09 14:01] LABS: ALKALINE PHOSPHATASE 88 U/L (46-116); ALT/SGPT 34 U/L (7.0-40); AST/SGOT 27 U/L (<34); BILIRUBIN,TOTAL 1.2 MG/DL (0.3-1.2); BLOOD UREA NITROGEN 22 MG/DL (9-23); CALCIUM LEVEL 9.4 MG/DL (8.5-10.1); CARBON DIOXIDE LEVEL 26 MMOL/L (20-31); CHLORIDE LEVEL 104 MMOL/L (98-107); CHOLESTEROL LEVEL 162 MG/DL (<200); CREATININE FOR GFR 0.87 MG/DL (0.70-1.30); GLOMERULAR FILTRATION RATE > 60.0 (>56); GLUCOSE, FASTING 166 MG/DL (60-100); HDL CHOLESTEROL 47.6 MG/DL (>40); LDL CHOLESTEROL 61.2 MG/DL (<100); NON-HDL-C 114 MG/DL; POTASSIUM SERUM 4.5 MMOL/L (3.5-5.1); SODIUM LEVEL 138 MMOL/L (136-145); TOTAL PROTEIN 6.8 G/DL (5.7-8.2); TOTAL PROTEIN 6.8 GM/DL (6.4-8.2); TRIGLYCERIDES LEVEL 266 MG/DL (<150)
[2022-02-09 14:20] LABS: HEMOGLOBIN A1c 7.9 % (4.0-6.0)
[2022-02-09 15:17] LABS: SEMEN APPEARANCE OPAQUE (OPAQUE); SEMEN VISCOSITY VISCOUS (LIQUID); SEMEN VOLUME 6.8 ML (2.0-5.0); SEMEN WBC >1 M/ml (<=1 M/ml)
== END ==
LOC: M LAB 12:46
PROVIDERS: ATTEND Family Medicine
DX: D75.1 Secondary polycythemia (principal); Z12.5 Encounter for screening for malignant neoplasm of prostate; E78.2 Mixed hyperlipidemia; D68.51 Activated protein C resistance; E11.8 Type 2 diabetes mellitus with unspecified complications
CPT/HCPCS: 36415; 80053; 80061; 82043; 82172; 83036; 84165; 85025; 85046; 85610; 86335; 89320; G0103

== ENCOUNTER → 2022-03-18 | Outpatient (CLI) | payer OTHER | LOC: M CARPUL 09:51 | PROVIDERS: ATTEND Family Medicine | DX: I25.10 Atherosclerotic heart disease of native coronary artery without angina pectoris (principal); I27.20 Pulmonary hypertension, unspecified ==

== ENCOUNTER → 2022-04-01 | Outpatient (CLI) | payer OTHER ==
[2022-04-01 15:18] LABS: SEMEN APPEARANCE OPAQUE (OPAQUE); SEMEN VISCOSITY LIQUID (LIQUID); SEMEN VOLUME 9.6 ML (2.0-5.0)
[2022-04-01 15:26] LABS: SEMEN WBC <=1 M/ml (<=1 M/ml); SEMEN pH 8.5 (7.0-8.0)
[2022-04-01 15:57] LABS: APPEARANCE, URINE CLEAR (CLEAR); BACTERIA, URINE AUTO NEGATIVE (NEGATIVE); BILIRUBIN, URINE AUTO NEGATIVE (NEGATIVE); BLOOD, URINE BLOOD NEGATIVE (NEGATIVE); COLOR, URINE YELLOW (YELLOW); GLUCOSE, URINE (UA) AUTO 3+ mg/dL (NEGATIVE); KETONE, URINE AUTO NEGATIVE (NEGATIVE); LEUKOCYTE ESTERASE, URINE AUTO NEGATIVE (NEGATIVE); NITRITE, URINE AUTO NEGATIVE (NEGATIVE); PROTEIN, URINE AUTO NEGATIVE (NEGATIVE); RBC, URINE AUTO 0 /HPF (0-3); SPECIFIC GRAVITY URINE AUTO 1.025 (1.002-1.035); SQUAMOUS EPITHELIAL CELL UR AU 0 /HPF (0-6); UROBILINOGEN, URINE AUTO 0.2 mg/dL (0.0-2.0); WBC, URINE AUTO 0 /HPF (0-3)
[2022-04-01 16:26] LABS: FOLLICLE STIMULATING HORMONE 26.9 mIU/ML (1.4-18.1); LUTEINIZING HORMONE 12.1 mIU/ML (1.5-9.3)
[2022-04-03 17:09] LABS: TESTOSTERONE FREE (DIRECT) 3.8 pg/mL (7.2-24.0)
== END ==
LOC: M LAB 14:40
PROVIDERS: ATTEND Family Medicine
DX: Z31.69 Encounter for other general counseling and advice on procreation (principal)

== ENCOUNTER → 2022-04-29 | Outpatient (CLI) | payer OTHER | LOC: M RAD 11:06 | PROVIDERS: ATTEND Family Medicine | DX: Z31.69 Encounter for other general counseling and advice on procreation (principal) ==

== ENCOUNTER → 2022-06-15 | Outpatient (CLI) | payer OTHER | LOC: M RAD 07:16 | PROVIDERS: ATTEND Family Medicine | DX: M75.42 Impingement syndrome of left shoulder (principal) ==

== ENCOUNTER → 2022-06-15 | Outpatient (CLI) | payer OTHER ==
[2022-06-15 12:24] LABS: CREATININE, URINE 46.2 MG/DL
[2022-06-15 12:25] LABS: MAU/CREAT RATIO 71.4 MCG/MG (0.0-30.0)
[2022-06-15 12:32] LABS: BASO # 0.1 10^3/uL (0.0-0.2); BASO % 1.2 % (0.0-1.0); EOS # 0.1 10^3/uL (0.0-0.5); EOS % 2.9 % (0.0-3.0); HEMOGLOBIN 17.2 g/dl (13.5-17.5); LYMPH # 1.3 10^3/uL (1.5-5.0); LYMPH % 25.9 % (24.0-44.0); MEAN CORPUSCULAR HEMOGLOBIN 33.9 pg (27.0-33.0); MEAN CORPUSCULAR HGB CONC 35.8 g/dl (32.0-36.5); MEAN CORPUSCULAR VOLUME 94.5 fl (80.0-96.0); MONO # 0.5 10^3/uL (0.0-0.8); MONO % 9.7 % (2.0-8.0); NEUTROPHILS # 2.9 10^3/uL (1.5-8.5); NEUTROPHILS % 59.7 % (36.0-66.0); PLATELET COUNT, AUTOMATED 151 10^3/uL (150-450); RED BLOOD COUNT 5.08 10^6/uL (4.30-6.10); WHITE BLOOD COUNT 4.9 10^3/uL (4.0-10.0)
[2022-06-15 12:43] LABS: INR 1.64; PROTHROMBIN TIME 19.7 SECONDS (12.5-14.5)
[2022-06-15 13:02] LABS: ALBUMIN 4.1 G/DL (3.2-5.2); ALKALINE PHOSPHATASE 81 U/L (46-116); ALT/SGPT 25 U/L (7.0-40); AST/SGOT 20 U/L (<34); BILIRUBIN,TOTAL 1.1 MG/DL (0.3-1.2); BLOOD UREA NITROGEN 24 MG/DL (9-23); CALCIUM LEVEL 8.9 MG/DL (8.5-10.1); CARBON DIOXIDE LEVEL 25 MMOL/L (20-31); CHLORIDE LEVEL 108 MMOL/L (98-107); CHOLESTEROL LEVEL 171 MG/DL (<200); CHOLESTEROL RISK RATIO 4.32 (<5); GLOMERULAR FILTRATION RATE > 60.0 (>56); GLUCOSE, FASTING 132 MG/DL (60-100); HDL CHOLESTEROL 39.5 MG/DL (>40); LDL CHOLESTEROL 91.9 MG/DL (<100); NON-HDL-C 131.5 MG/DL; POTASSIUM SERUM 4.1 MMOL/L (3.5-5.1); SODIUM LEVEL 138 MMOL/L (136-145); TOTAL PROTEIN 6.7 G/DL (5.7-8.2); TRIGLYCERIDES LEVEL 198 MG/DL (<150)
[2022-06-15 13:25] LABS: HEMOGLOBIN A1c 7.9 % (4.0-6.0)
[2022-06-17 19:07] LABS: APOLIPOPROTEIN A-1 132 mg/dL (101-178); APOLIPOPROTEIN B 110 mg/dL (<90); APOLIPOPROTEIN B/A-1 RATIO 0.8 ratio (0.0-0.7); IMMUNOTYPING SERUM IGA SO 138 mg/dL (90-386); IMMUNOTYPING SERUM IGM SO 69 mg/dL (20-172)
== END ==
LOC: M PLALAB 08:25
PROVIDERS: ATTEND Family Medicine
DX: D75.1 Secondary polycythemia (principal); E78.2 Mixed hyperlipidemia; D68.51 Activated protein C resistance; E11.8 Type 2 diabetes mellitus with unspecified complications; Z51.81 Encounter for therapeutic drug level monitoring; Z79.899 Other long term (current) drug therapy; Z12.5 Encounter for screening for malignant neoplasm of prostate
CPT/HCPCS: 36415; 80053; 80061; 82043; 82172; 82784; 83036; 84155; 84165; 85025; 85046; 85610; 86334; G0103

== ENCOUNTER → 2022-07-23 | Outpatient (REF) | payer OTHER | LOC: M SFHCPLAZ 18:53 | PROVIDERS: ATTEND Family Medicine | DX: Z53.9 Procedure and treatment not carried out, unspecified reason (principal); I82.409 Acute embolism and thrombosis of unspecified deep veins of unspecified lower extremity ==

== ENCOUNTER → 2022-09-29 | Outpatient (CLI) | payer OTHER ==
[2022-09-29 11:52] LABS: BASO # 0.1 10^3/uL (0.0-0.2); BASO % 1.1 % (0.0-1.0); EOS # 0.2 10^3/uL (0.0-0.5); HEMATOCRIT 46.2 % (42.0-52.0); LYMPH # 1.2 10^3/uL (1.5-5.0); LYMPH % 22.6 % (24.0-44.0); MEAN CORPUSCULAR HEMOGLOBIN 33.1 pg (27.0-33.0); MEAN CORPUSCULAR HGB CONC 34.6 g/dl (32.0-36.5); MEAN CORPUSCULAR VOLUME 95.7 fl (80.0-96.0); MONO # 0.6 10^3/uL (0.0-0.8); MONO % 10.4 % (2.0-8.0); NEUTROPHILS # 3.4 10^3/uL (1.5-8.5); NEUTROPHILS % 61.5 % (36.0-66.0); PLATELET COUNT, AUTOMATED 142 10^3/uL (150-450); RED BLOOD COUNT 4.83 10^6/uL (4.30-6.10); WHITE BLOOD COUNT 5.5 10^3/uL (4.0-10.0)
[2022-09-29 12:01] LABS: HEMOGLOBIN A1c 7.6 % (4.0-6.0)
[2022-09-29 12:12] LABS: ALBUMIN 3.9 G/DL (3.2-5.2); ALKALINE PHOSPHATASE 76 U/L (46-116); ALT/SGPT 29 U/L (7.0-40); AST/SGOT 14 U/L (<34); BILIRUBIN,TOTAL 0.8 MG/DL (0.3-1.2); BLOOD UREA NITROGEN 20 MG/DL (9-23); CALCIUM LEVEL 8.7 MG/DL (8.5-10.1); CARBON DIOXIDE LEVEL 26 MMOL/L (20-31); CHLORIDE LEVEL 109 MMOL/L (98-107); CREATININE FOR GFR 0.74 MG/DL (0.70-1.30); GLOMERULAR FILTRATION RATE > 60.0 (>56); GLUCOSE, FASTING 215 MG/DL (60-100); POTASSIUM SERUM 4.5 MMOL/L (3.5-5.1); PTH INTACT 60.1 PG/ML (18.5-88.0); SODIUM LEVEL 141 MMOL/L (136-145); TOTAL PROTEIN 6.4 G/DL (5.7-8.2)
[2022-09-29 12:13] LABS: FREE T4 0.93 NG/DL (0.89-1.76); INR 3.13; PROTHROMBIN TIME 31.4 SECONDS (12.5-14.5); THYROID STIMULATING HORMONE 0.995 uIU/ML (0.55-4.78)
[2022-09-29 12:14] LABS: FERRITIN 82.2 NG/ML (10.5-307.3); TOTAL 25(OH) VITAMIN D 65.5 NG/ML (20.0-100.0)
== END ==
LOC: M WUC 08:48
PROVIDERS: ATTEND Family Medicine
DX: I82.409 Acute embolism and thrombosis of unspecified deep veins of unspecified lower extremity (principal); D75.89 Other specified diseases of blood and blood-forming organs; E11.8 Type 2 diabetes mellitus with unspecified complications; E55.9 Vitamin D deficiency, unspecified; Z86.711 Personal history of pulmonary embolism; I50.32 Chronic diastolic (congestive) heart failure; E78.2 Mixed hyperlipidemia

== ENCOUNTER → 2023-01-12 | Outpatient (CLI) | payer OTHER ==
[~2023-01-12] MED LIST changes: +EZET10TA58 PO; -LUNE3TAB36 PO; +LUNE3TAB50 PO; -ZETI10TA16 PO
[2023-01-12 13:09] LABS: HEMOGLOBIN A1c 7.7 % (4.0-6.0)
[2023-01-12 13:16] LABS: ALBUMIN 3.9 G/DL (3.2-5.2); ALKALINE PHOSPHATASE 76 U/L (46-116); ALT/SGPT 30 U/L (7.0-40); AST/SGOT 13 U/L (<34); BILIRUBIN,TOTAL 0.9 MG/DL (0.3-1.2); BLOOD UREA NITROGEN 23 MG/DL (9-23); CALCIUM LEVEL 8.8 MG/DL (8.5-10.1); CARBON DIOXIDE LEVEL 27 MMOL/L (20-31); CHLORIDE LEVEL 106 MMOL/L (98-107); CREATININE FOR GFR 0.86 MG/DL (0.70-1.30); GLOMERULAR FILTRATION RATE > 60.0 (>56); GLUCOSE, FASTING 164 MG/DL (60-100); MAGNESIUM LEVEL 2.1 MG/DL (1.8-2.4); POTASSIUM SERUM 4.3 MMOL/L (3.5-5.1); SODIUM LEVEL 139 MMOL/L (136-145); TOTAL PROTEIN 6.5 G/DL (5.7-8.2)
[2023-01-12 13:25] LABS: INR 2.17; PARTIAL THROMBOPLASTIN TIME 36.9 SECONDS (24.8-34.2); PROTHROMBIN TIME 23.4 SECONDS (12.5-14.5)
== END ==
LOC: M WUC 09:42
PROVIDERS: ATTEND Family Medicine
DX: I82.409 Acute embolism and thrombosis of unspecified deep veins of unspecified lower extremity (principal); K76.0 Fatty (change of) liver, not elsewhere classified; I50.32 Chronic diastolic (congestive) heart failure; Z12.5 Encounter for screening for malignant neoplasm of prostate; E11.8 Type 2 diabetes mellitus with unspecified complications
CPT/HCPCS: 36415; 80053; 82105; 82172; 83010; 83036; 83735; 83883; 85610; 85730; G0103

== ENCOUNTER → 2023-03-29 | Outpatient (CLI) | payer OTHER ==
[2023-03-29 13:03] LABS: BASO # 0.1 10^3/uL (0.0-0.2); BASO % 1.1 % (0.0-1.0); EOS # 0.2 10^3/uL (0.0-0.5); EOS % 3.3 % (0.0-3.0); HEMATOCRIT 47.4 % (42.0-52.0); HEMOGLOBIN 16.8 g/dl (13.5-17.5); LYMPH # 1.3 10^3/uL (1.5-5.0); LYMPH % 24.1 % (24.0-44.0); MEAN CORPUSCULAR HEMOGLOBIN 32.9 pg (27.0-33.0); MEAN CORPUSCULAR HGB CONC 35.4 g/dl (32.0-36.5); MEAN CORPUSCULAR VOLUME 92.9 fl (80.0-96.0); MONO # 0.5 10^3/uL (0.0-0.8); MONO % 9.4 % (2.0-8.0); NEUTROPHILS # 3.2 10^3/uL (1.5-8.5); NEUTROPHILS % 61.7 % (36.0-66.0); PLATELET COUNT, AUTOMATED 153 10^3/uL (150-450); WHITE BLOOD COUNT 5.2 10^3/uL (4.0-10.0)
[2023-03-29 13:15] LABS: INR 2.37
[2023-03-29 13:30] LABS: ALBUMIN 3.9 G/DL (3.2-5.2); ALKALINE PHOSPHATASE 79 U/L (46-116); ALT/SGPT 25 U/L (7.0-40); AST/SGOT 15 U/L (<34); BLOOD UREA NITROGEN 19 MG/DL (9-23); CALCIUM LEVEL 9.3 MG/DL (8.5-10.1); CARBON DIOXIDE LEVEL 27 MMOL/L (20-31); CHLORIDE LEVEL 108 MMOL/L (98-107); CHOLESTEROL LEVEL 185 MG/DL (<200); CHOLESTEROL RISK RATIO 4.18 (<5); CREATININE FOR GFR 0.89 MG/DL (0.70-1.30); GLOMERULAR FILTRATION RATE > 60.0 (>56); GLUCOSE, FASTING 175 MG/DL (60-100); HDL CHOLESTEROL 44.2 MG/DL (>40); LDL CHOLESTEROL 79.6 MG/DL (<100); NON-HDL-C 140.8 MG/DL; POTASSIUM SERUM 4.3 MMOL/L (3.5-5.1); SODIUM LEVEL 141 MMOL/L (136-145); TOTAL PROTEIN 6.5 G/DL (5.7-8.2); TRIGLYCERIDES LEVEL 306 MG/DL (<150)
[2023-03-29 13:31] LABS: FERRITIN 87.4 NG/ML (10.5-307.3)
== END ==
LOC: M PLALAB 10:31
PROVIDERS: ATTEND Family Medicine
DX: I82.409 Acute embolism and thrombosis of unspecified deep veins of unspecified lower extremity (principal); E55.9 Vitamin D deficiency, unspecified; E11.8 Type 2 diabetes mellitus with unspecified complications

== ENCOUNTER → 2023-04-01 | Outpatient (REF) | payer OTHER | LOC: M SFHCPLAZ 17:53 | PROVIDERS: ATTEND Family Medicine | DX: Z53.9 Procedure and treatment not carried out, unspecified reason (principal) ==

== ENCOUNTER → 2023-04-02 | Outpatient (REF) | payer OTHER | LOC: M SFHCPLAZ 16:59 | PROVIDERS: ATTEND Family Medicine | DX: Z53.9 Procedure and treatment not carried out, unspecified reason (principal) ==

== ENCOUNTER → 2023-04-28 | Outpatient (CLI) | payer OTHER | LOC: M RAD 06:38 | PROVIDERS: ATTEND Family Medicine | DX: K74.00 Hepatic fibrosis, unspecified (principal); K76.0 Fatty (change of) liver, not elsewhere classified; R16.1 Splenomegaly, not elsewhere classified ==

== ENCOUNTER → 2023-06-29 | Outpatient (CLI) | payer OTHER ==
[~2023-06-29] MED LIST changes: +TIZA2CAP3 PO; -TIZA2CAP6 PO
[2023-06-29 12:31] LABS: BASO # 0.1 10^3/uL (0.0-0.2); EOS # 0.2 10^3/uL (0.0-0.5); EOS % 3.8 % (0.0-3.0); HEMOGLOBIN 16.4 g/dl (13.5-17.5); LYMPH # 1.2 10^3/uL (1.5-5.0); LYMPH % 19.9 % (24.0-44.0); MEAN CORPUSCULAR HEMOGLOBIN 33.1 pg (27.0-33.0); MEAN CORPUSCULAR HGB CONC 34.9 g/dl (32.0-36.5); MEAN CORPUSCULAR VOLUME 94.9 fl (80.0-96.0); MONO # 0.6 10^3/uL (0.0-0.8); MONO % 9.5 % (2.0-8.0); NEUTROPHILS % 65.6 % (36.0-66.0); PLATELET COUNT, AUTOMATED 146 10^3/uL (150-450); RED BLOOD COUNT 4.95 10^6/uL (4.30-6.10); WHITE BLOOD COUNT 6.1 10^3/uL (4.0-10.0)
[2023-06-29 12:41] LABS: INR 1.74; PARTIAL THROMBOPLASTIN TIME 34.4 SECONDS (24.8-34.2); PROTHROMBIN TIME 19.7 SECONDS (12.5-14.5)
[2023-06-29 12:44] LABS: HEMOGLOBIN A1c 7.1 % (4.0-6.0)
[2023-06-29 12:59] LABS: ALBUMIN 3.9 G/DL (3.2-5.2); ALKALINE PHOSPHATASE 81 U/L (46-116); ALT/SGPT 24 U/L (7.0-40); AST/SGOT 12 U/L (<34); BLOOD UREA NITROGEN 20 MG/DL (9-23); CALCIUM LEVEL 9.3 MG/DL (8.5-10.1); CARBON DIOXIDE LEVEL 27 MMOL/L (20-31); CHLORIDE LEVEL 105 MMOL/L (98-107); CREATININE FOR GFR 1.08 MG/DL (0.70-1.30); GLOMERULAR FILTRATION RATE > 60.0 (>56); GLUCOSE, FASTING 262 MG/DL (60-100); POTASSIUM SERUM 4.5 MMOL/L (3.5-5.1); SODIUM LEVEL 138 MMOL/L (136-145); TOTAL PROTEIN 6.2 G/DL (5.7-8.2)
== END ==
LOC: M PLALAB 09:39
PROVIDERS: ATTEND Family Medicine
DX: E11.8 Type 2 diabetes mellitus with unspecified complications (principal); I50.32 Chronic diastolic (congestive) heart failure; K74.00 Hepatic fibrosis, unspecified

== ENCOUNTER → 2023-07-15 | Outpatient (REF) | payer OTHER ==
[2023-07-15 15:15] LABS: SEMEN APPEARANCE OPAQUE (OPAQUE)
[2023-07-15 15:16] LABS: SEMEN VISCOSITY LIQUID (LIQUID); SEMEN VOLUME 6.5 ML (2.0-5.0); SEMEN WBC >1 M/ml (<=1 M/ml); SEMEN pH 8.5 (7.0-8.0)
== END ==
LOC: M SFHCWAGY 12:49
PROVIDERS: ATTEND Specialist
DX: N46.9 Male infertility, unspecified (principal)

== ENCOUNTER → 2023-09-23 | Outpatient (REF) | payer OTHER | LOC: M SFHCPLAZ 15:03 | PROVIDERS: ATTEND Family Medicine | DX: Z53.9 Procedure and treatment not carried out, unspecified reason (principal) ==

== ENCOUNTER → 2023-09-24 | Outpatient (CLI) | payer OTHER | LOC: M PLAIMG 15:37 | PROVIDERS: ATTEND Family Medicine | DX: M50.30 Other cervical disc degeneration, unspecified cervical region (principal) ==

== ENCOUNTER → 2023-12-24 | Outpatient (CLI) | payer OTHER ==
[2023-12-24 16:51] LABS: BASO % 0.7 % (0.0-1.0); EOS # 0.2 10^3/uL (0.0-0.5); HEMATOCRIT 48.8 % (42.0-52.0); HEMOGLOBIN 17.1 g/dl (13.5-17.5); LYMPH # 1.2 10^3/uL (1.5-5.0); LYMPH % 20.9 % (24.0-44.0); MEAN CORPUSCULAR HEMOGLOBIN 33.1 pg (27.0-33.0); MEAN CORPUSCULAR VOLUME 94.6 fl (80.0-96.0); MONO # 0.5 10^3/uL (0.0-0.8); MONO % 8.7 % (2.0-8.0); NEUTROPHILS # 3.7 10^3/uL (1.5-8.5); NEUTROPHILS % 66.3 % (36.0-66.0); PLATELET COUNT, AUTOMATED 149 10^3/uL (150-450); RED BLOOD COUNT 5.16 10^6/uL (4.30-6.10); WHITE BLOOD COUNT 5.6 10^3/uL (4.0-10.0)
[2023-12-24 17:02] LABS: HEMOGLOBIN A1c 7.7 % (4.0-6.0)
[2023-12-24 17:20] LABS: ALKALINE PHOSPHATASE 71 U/L (40-129); ALT/SGPT 26 U/L (7.0-40); AST/SGOT 14 U/L (<34); BILIRUBIN,TOTAL 1.2 MG/DL (0.3-1.2); BLOOD UREA NITROGEN 18 MG/DL (9-23); CALCIUM LEVEL 9.4 MG/DL (8.5-10.1); CARBON DIOXIDE LEVEL 26 MMOL/L (20-31); CHLORIDE LEVEL 109 MMOL/L (98-107); CREATININE FOR GFR 0.98 MG/DL (0.70-1.30); GLOMERULAR FILTRATION RATE > 60.0 (>56); GLUCOSE, FASTING 146 MG/DL (60-100); INR 2.1; PARTIAL THROMBOPLASTIN TIME 38.7 SECONDS (24.8-34.2); POTASSIUM SERUM 4.1 MMOL/L (3.5-5.1); PROTHROMBIN TIME 23.7 SECONDS (12.5-14.5); SODIUM LEVEL 142 MMOL/L (136-145); TOTAL PROTEIN 6.8 G/DL (5.7-8.2)
[2023-12-24 17:23] LABS: VITAMIN B12 LEVEL 680 PG/ML (211-911)
== END ==
LOC: M PLALAB 14:21
PROVIDERS: ATTEND Family Medicine
DX: E11.8 Type 2 diabetes mellitus with unspecified complications (principal); I50.32 Chronic diastolic (congestive) heart failure; K74.00 Hepatic fibrosis, unspecified; D75.1 Secondary polycythemia

== ENCOUNTER → 2024-02-25 | Outpatient (CLI) | payer OTHER ==
[2024-02-25 17:07] LABS: INR 1.64; PROTHROMBIN TIME 19.7 SECONDS (12.5-14.5)
== END ==
LOC: M PLALAB 16:00
PROVIDERS: ATTEND Family Medicine
DX: I82.409 Acute embolism and thrombosis of unspecified deep veins of unspecified lower extremity (principal)

== ENCOUNTER → 2024-06-08 | Outpatient (CLI) | payer OTHER ==
[2024-06-08 15:01] LABS: BASO # 0.1 10^3/uL (0.0-0.2); BASO % 0.7 % (0.0-1.0); EOS # 0.2 10^3/uL (0.0-0.5); EOS % 2.4 % (0.0-3.0); HEMATOCRIT 50.8 % (42.0-52.0); HEMOGLOBIN 17.2 g/dl (13.5-17.5); LYMPH # 1.4 10^3/uL (1.5-5.0); LYMPH % 20.3 % (24.0-44.0); MEAN CORPUSCULAR HEMOGLOBIN 32.6 pg (27.0-33.0); MEAN CORPUSCULAR HGB CONC 33.9 g/dl (32.0-36.5); MEAN CORPUSCULAR VOLUME 96.4 fl (80.0-96.0); MONO # 0.8 10^3/uL (0.0-0.8); MONO % 11.2 % (2.0-8.0); NEUTROPHILS # 4.4 10^3/uL (1.5-8.5); PLATELET COUNT, AUTOMATED 133 10^3/uL (150-450); RED BLOOD COUNT 5.27 10^6/uL (4.30-6.10); WHITE BLOOD COUNT 6.8 10^3/uL (4.0-10.0)
[2024-06-08 15:14] LABS: ALBUMIN 3.7 G/DL (3.2-5.2); BILIRUBIN,TOTAL 0.7 MG/DL (0.3-1.2); CALCIUM LEVEL 8.8 MG/DL (8.3-10.6); CHOLESTEROL RISK RATIO 4.68 (<5); CREATININE FOR GFR 0.97 MG/DL (0.70-1.30); GLOMERULAR FILTRATION RATE 89.4 (>49); HDL CHOLESTEROL 38.4 MG/DL (>40); NON-HDL-C 141.6 MG/DL; POTASSIUM SERUM 4.6 MMOL/L (3.5-5.1); PSA SCREENING 1.75 NG/ML (< 4.00); TOTAL PROTEIN 6.4 G/DL (5.7-8.2)
[2024-06-08 15:16] LABS: FERRITIN 127.9 NG/ML (10.5-307.3)
[2024-06-08 15:18] LABS: INR 2.44; PARTIAL THROMBOPLASTIN TIME 41.7 SECONDS (24.8-34.2); PROTHROMBIN TIME 26.6 SECONDS (12.5-14.5)
[2024-06-08 16:01] LABS: CREATININE, URINE 93.9 MG/DL; MAU/CREAT RATIO 47.9 MCG/MG (0.0-30.0)
== END ==
LOC: M PLALAB 12:54
PROVIDERS: ATTEND Family Medicine
DX: I50.32 Chronic diastolic (congestive) heart failure (principal); E11.8 Type 2 diabetes mellitus with unspecified complications; D75.1 Secondary polycythemia; Z12.5 Encounter for screening for malignant neoplasm of prostate; Z51.81 Encounter for therapeutic drug level monitoring
CPT/HCPCS: 36415; 80053; 80061; 82043; 82728; 83880; 85025; 85610; 85730; G0103

== ENCOUNTER → 2024-08-23 | Outpatient (CLI) | payer OTHER ==
[2024-08-23 17:02] LABS: BASO # 0.1 10^3/uL (0.0-0.2); BASO % 1.1 % (0.0-1.0); EOS # 0.2 10^3/uL (0.0-0.5); EOS % 3.4 % (0.0-3.0); LYMPH # 1.2 10^3/uL (1.5-5.0); LYMPH % 23.1 % (24.0-44.0); MONO # 0.6 10^3/uL (0.0-0.8); MONO % 11.4 % (2.0-8.0); NEUTROPHILS # 3.3 10^3/uL (1.5-8.5); NEUTROPHILS % 60.8 % (36.0-66.0); PLATELET COUNT, AUTOMATED 144 10^3/uL (150-450)
[2024-08-23 17:30] LABS: INR 3.17
== END ==
LOC: M PLALAB 14:07
PROVIDERS: ATTEND Family Medicine
DX: I82.409 Acute embolism and thrombosis of unspecified deep veins of unspecified lower extremity (principal)

== ENCOUNTER → 2024-09-27 | Outpatient (CLI) | payer OTHER ==
[2024-09-27 13:29] LABS: APPEARANCE, URINE HAZY (CLEAR); BACTERIA, URINE AUTO NEGATIVE (NEGATIVE); BILIRUBIN, URINE AUTO NEGATIVE (NEGATIVE); BLOOD, URINE BLOOD NEGATIVE (NEGATIVE); GLUCOSE, URINE (UA) AUTO 3+ mg/dL (NEGATIVE); KETONE, URINE AUTO NEGATIVE (NEGATIVE); LEUKOCYTE ESTERASE, URINE AUTO NEGATIVE (NEGATIVE); MUCUS, URINE SMALL (NEGATIVE); NITRITE, URINE AUTO NEGATIVE (NEGATIVE); PROTEIN, URINE AUTO NEGATIVE (NEGATIVE); RBC, URINE AUTO 2 /HPF (0-3); SPECIFIC GRAVITY URINE AUTO 1.028 (1.002-1.035); SQUAMOUS EPITHELIAL CELL UR AU 0 /HPF (0-6); UROBILINOGEN, URINE AUTO 0.2 mg/dL (0.0-2.0); WBC, URINE AUTO 12 /HPF (0-3)
[2024-09-27 13:57] LABS: ESTRADIOL 41.7 PG/ML (<39.8); LUTEINIZING HORMONE 14.7 mIU/ML (1.5-9.3); PROLACTIN 5.89 NG/ML (2.1-17.7)
[2024-09-27 13:58] LABS: TESTOSTERONE 363.0 NG/DL (241-827)
== END ==
LOC: M PLALAB 09:59
PROVIDERS: ATTEND Urology
DX: E29.1 Testicular hypofunction (principal); R35.0 Frequency of micturition; F52.32 Male orgasmic disorder

== ENCOUNTER → 2024-10-20 | Outpatient (CLI) | payer OTHER ==
[2024-10-20 18:44] LABS: ESTIMATED AVERAGE GLUCOSE 171.0 MG/DL (60-110)
== END ==
LOC: M PLALAB 15:57
PROVIDERS: ATTEND Urology
DX: R35.0 Frequency of micturition (principal); R81 Glycosuria

== ENCOUNTER → 2024-10-23 | Outpatient (CLI) | payer OTHER ==
[2024-10-23 18:20] LABS: BASO # 0.1 10^3/uL (0.0-0.2); BASO % 0.8 % (0.0-1.0); EOS # 0.2 10^3/uL (0.0-0.5); EOS % 3.9 % (0.0-3.0); LYMPH # 1.5 10^3/uL (1.5-5.0); LYMPH % 24.8 % (24.0-44.0); MONO # 0.6 10^3/uL (0.0-0.8); MONO % 9.6 % (2.0-8.0); NEUTROPHILS # 3.6 10^3/uL (1.5-8.5); NEUTROPHILS % 60.7 % (36.0-66.0); PLATELET COUNT, AUTOMATED 134 10^3/uL (150-450)
[2024-10-23 18:39] LABS: INR 2.19
[2024-10-23 18:52] LABS: ALT/SGPT 33 U/L (7.0-40); AST/SGOT 26 U/L (<34); CALCIUM LEVEL 8.7 MG/DL (8.3-10.6); CARBON DIOXIDE LEVEL 27 MMOL/L (20-31); CHLORIDE LEVEL 105 MMOL/L (98-107); CHOLESTEROL LEVEL 128 MG/DL (<200); CHOLESTEROL RISK RATIO 2.78 (<5); CREATININE FOR GFR 0.99 MG/DL (0.70-1.30); GLOMERULAR FILTRATION RATE 87.2 (>49); LDL CHOLESTEROL 51.8 MG/DL (<100); NON-HDL-C 82.0 MG/DL; POTASSIUM SERUM 4.1 MMOL/L (3.5-5.1); PSA SCREENING 4.32 NG/ML (< 4.00); PTH INTACT 66.8 PG/ML (18.5-88.0); SODIUM LEVEL 142 MMOL/L (136-145); TRIGLYCERIDES LEVEL 151 MG/DL (<150)
[2024-10-23 18:54] LABS: FREE T4 1.02 NG/DL (0.89-1.76); TOTAL 25(OH) VITAMIN D 85.9 NG/ML (20.0-100.0)
[2024-10-23 19:03] LABS: CREATININE, URINE 53.4 MG/DL; MALB URINE SIEMENS 41.0 MG/L; MAU/CREAT RATIO 76.7 MCG/MG (0.0-30.0)
== END ==
LOC: M PLALAB 16:09
PROVIDERS: ATTEND Family Medicine
DX: I82.409 Acute embolism and thrombosis of unspecified deep veins of unspecified lower extremity (principal); K74.00 Hepatic fibrosis, unspecified; I50.32 Chronic diastolic (congestive) heart failure; D75.1 Secondary polycythemia; E11.8 Type 2 diabetes mellitus with unspecified complications; Z12.5 Encounter for screening for malignant neoplasm of prostate; E55.9 Vitamin D deficiency, unspecified
CPT/HCPCS: 36415; 80053; 80061; 81517; 81596; 82043; 82105; 82306; 82728; 83880; 83970; 84439; 84443; 85025; 85610; G0103

== ENCOUNTER → 2024-10-23 | Outpatient (REF) | payer OTHER | LOC: M LAB REF 18:49 | PROVIDERS: ATTEND Urology | DX: R35.0 Frequency of micturition (principal) ==

== ENCOUNTER → 2024-11-10 | Outpatient (CLI) | payer OTHER ==
[2024-11-10 07:31] LABS: LUTEINIZING HORMONE 23.0 mIU/ML (1.5-9.3); PROLACTIN 9.83 NG/ML (2.1-17.7)
[2024-11-10 07:32] LABS: ESTRADIOL 33.7 PG/ML (<39.8); TESTOSTERONE 395.0 NG/DL (241-827)
== END ==
LOC: M LAB 06:21
PROVIDERS: ATTEND Urology
DX: F52.32 Male orgasmic disorder (principal)

== ENCOUNTER 2024-12-25 12:23 | Emergency (ER) | payer OTHER ==
[~2024-12-25] VITALS: Ht 170.2 cm; Wt 103.9 kg
[2024-12-25] MEDS ORDERED: TRES1INJ SC (12:45)
[2024-12-25] MEDS ORDERED: SEMA1PEN2 (12:45)
[2024-12-25] MEDS ORDERED: JARD1TAB3 (12:45)
[2024-12-25] MEDS ORDERED: BENZ200C70 PO (15:07)
[2024-12-25 15:21] VITALS: BP 136/82; TEMP 98.9; O2SAT 98
== END 2024-12-25 15:22 | disposition home or self-care (01) ==
LOC: M ED 12:23
DX: B34.8 Other viral infections of unspecified site (principal); I10 Essential (primary) hypertension; E11.9 Type 2 diabetes mellitus without complications

== ENCOUNTER → 2024-12-27 | Outpatient (CLI) | payer OTHER ==
[~2024-12-27] MED LIST changes: +BENZ200C70 PO; +JARD1TAB3; +SEMA1PEN2; +TRES1INJ SC
[2024-12-27 15:15] LABS: BASO # 0.0 10^3/uL (0.0-0.2); BASO % 0.7 % (0.0-1.0); EOS # 0.2 10^3/uL (0.0-0.5); EOS % 3.4 % (0.0-3.0); LYMPH # 1.2 10^3/uL (1.5-5.0); LYMPH % 19.5 % (24.0-44.0); MONO # 0.9 10^3/uL (0.0-0.8); MONO % 15.4 % (2.0-8.0); NEUTROPHILS # 3.6 10^3/uL (1.5-8.5); NEUTROPHILS % 60.7 % (36.0-66.0); PLATELET COUNT, AUTOMATED 142 10^3/uL (150-450)
[2024-12-27 15:24] LABS: INR 1.01
[2024-12-27 15:29] LABS: PSA SCREENING 3.45 NG/ML (< 4.00)
[2024-12-27 15:31] LABS: FREE T4 0.97 NG/DL (0.89-1.76)
[2024-12-27 15:32] LABS: ALT/SGPT 25 U/L (7.0-40); AST/SGOT 19 U/L (<34); CALCIUM LEVEL 9.0 MG/DL (8.3-10.6); CARBON DIOXIDE LEVEL 27 MMOL/L (20-31); CHLORIDE LEVEL 104 MMOL/L (98-107); CHOLESTEROL LEVEL 137 MG/DL (<200); CHOLESTEROL RISK RATIO 3.67 (<5); CREATININE FOR GFR 0.90 MG/DL (0.70-1.30); GLOMERULAR FILTRATION RATE > 90.0 (>49); LDL CHOLESTEROL 61.7 MG/DL (<100); NON-HDL-C 99.7 MG/DL; POTASSIUM SERUM 4.4 MMOL/L (3.5-5.1); PTH INTACT 48.5 PG/ML (18.5-88.0); SODIUM LEVEL 142 MMOL/L (136-145); TRIGLYCERIDES LEVEL 190 MG/DL (<150)
[2024-12-27 15:33] LABS: TOTAL 25(OH) VITAMIN D 121.4 NG/ML (20.0-100.0)
[2024-12-27 15:54] LABS: CREATININE, URINE 84.1 MG/DL
[2024-12-27 15:55] LABS: MALB URINE SIEMENS 122.0 MG/L; MAU/CREAT RATIO 145.0 MCG/MG (0.0-30.0)
== END ==
LOC: M PLALAB 13:55
PROVIDERS: ATTEND Family Medicine
DX: E11.8 Type 2 diabetes mellitus with unspecified complications (principal); E78.2 Mixed hyperlipidemia; K74.00 Hepatic fibrosis, unspecified; K75.1 Phlebitis of portal vein; Z12.5 Encounter for screening for malignant neoplasm of prostate; E55.9 Vitamin D deficiency, unspecified; I50.32 Chronic diastolic (congestive) heart failure
CPT/HCPCS: 36415; 80053; 80061; 81596; 82043; 82105; 82306; 82728; 83880; 83970; 84439; 84443; 85025; 85610; 85730; G0103